=== PATIENT | male | born 1950 | race Caucasian/White ===

== ENCOUNTER 2020-10-27 01:28 | Day surgery (SDC) | payer MEDICARE, SELFPAY ==
[2020-10-18 12:56] VITALS: BMI 24.4
--- NOTE | 2020-10-26 16:31 | PM.HPGS ---
History of Present Illness History of Present Illness Consent: Risks, benefits, and alternatives have been discussed and questions answered. Patient agrees to proceed with procedure. Chief complaint: neoplasm screening Narrative: Lew Ovalles is a 70 year old male referred for colon cancer screening. He has had polyps removed test. About 20 years ago he had a partial colon resection in order to remove a large polyp. Review of Systems Review of Systems: All systems reviewed & are unremarkable except as noted in HPI and below PMFSH Past Medical History Medical History History of CVA (cerebrovascular accident) HTN (hypertension) Hyperlipidemia PVD (peripheral vascular disease) Smoker Surgical History Surgical History H/O carotid endarterectomy Social History Social History Smoking status: Current some day smoker Tobacco type: cigarettes and e-cigarettes/vaping Alcohol intake: current Drinks per week: 21 Living arrangements: with family Spiritual care concerns: No Meds Home Medications and Allergies Home Medications Medication Instructions Recorded Confirmed Type amlodipine 5 mg PO DAILY 10/18/20 10/27/20 History aspirin [Adult Low Dose Aspirin] 81 mg PO DAILY 10/18/20 10/27/20 History atorvastatin 40 mg PO DAILY 10/18/20 10/27/20 History clopidogrel 75 mg PO DAILY 10/18/20 10/27/20 History gemfibrozil 600 mg PO DAILY 10/18/20 10/27/20 History levetiracetam 500 mg PO DAILY 10/18/20 10/27/20 History lisinopril-hydrochlorothiazide 1 tablet PO DAILY 10/18/20 10/27/20 History Allergies Allergy/AdvReac Type Severity Reaction Status Date / Time No Known Allergies Allergy Verified 10/27/20 06:45 Exam Resp: Auscultation: clear to auscultation bilaterally Cardio: Rate: regular rate Rhythm: regular rhythm GI: GI Palp: Yes Soft to palpation and No Tenderness to palpation present (GI) Assessment and Plan Assessment and plan (1) Colon cancer screening: Code(s): Z12.11 - Encounter for screening for malignant neoplasm of colon Status: Acute Assessment and Plan: Colonoscopy with possible biopsy or polypectomy or cautery or injection of substances.
--- NOTE | 2020-10-27 07:05 | WPDANESEPPF ---
Anes - Initial Pre Proc Eval Procedure: Operation Date: 10/27/20 08:00 Proposed Procedures p Screening Colonoscopy - Jose Bobo MD Date/Time: 10/27/20 07:05 Surgeon: Jose Bobo MD Pre Op Diagnosis: neoplasm screening Patient Data Age: 70 Gender: M Height: 1.75 m Weight: 75 kg Allergies Allergy/AdvReac Type Severity Reaction Status Date / Time No Known Allergies Allergy Verified 10/27/20 06:45 Home Medications Medication Instructions Recorded Confirmed Type amlodipine 5 mg PO DAILY 10/18/20 10/27/20 History aspirin [Adult Low Dose Aspirin] 81 mg PO DAILY 10/18/20 10/27/20 History atorvastatin 40 mg PO DAILY 10/18/20 10/27/20 History clopidogrel 75 mg PO DAILY 10/18/20 10/27/20 History gemfibrozil 600 mg PO DAILY 10/18/20 10/27/20 History levetiracetam 500 mg PO DAILY 10/18/20 10/27/20 History lisinopril-hydrochlorothiazide 1 tablet PO DAILY 10/18/20 10/27/20 History Patient hx anesthesia problems: none Family hx anesthesia problems: none PMFSH Past Medical History Medical History History of CVA (cerebrovascular accident) HTN (hypertension) Hyperlipidemia PVD (peripheral vascular disease) Smoker Surgical History Surgical History (Updated 10/27/20 @ 07:06 by Ronnie Cabrera MD) H/O carotid endarterectomy Social History Social History Smoking status: Current some day smoker Tobacco type: cigarettes and e-cigarettes/vaping Alcohol intake: current Drinks per week: 21 Living arrangements: with family Spiritual care concerns: No Anes - Eval Final PreProcedure Day of Procedure 10/27/20 07:05 Patient weight: overweight Heart: regular rate and rhythm Lungs: clear to auscultation Airway: Mallampati scale class II Neurological: alert and oriented Last oral intake: >/= 8 hours ASA classification: IV Emergent: no Anesthetic plan: proceed Anesthesia type and monitoring: general GIVS and standard monitoring Informed Consent: The patient's anesthetic plan and its attendant risks and benefits were discussed with the patient/family/POA. Questions were solicited and answers provided to the satisfaction of the patient/family/POA.
[2020-10-27 07:08] VITALS: BP 152/90; PULSE 80; RESP 16; TEMP 36.6; O2SAT 97; BMI 23.4
[2020-10-27] MEDS: LACTATED RINGERS 1,000 ML 150 ML IV CONT (07:15)
[2020-10-27 08:01] VITALS: BP 132/79; PULSE 73; RESP 26; O2SAT 100
[2020-10-27 08:11] VITALS: BP 130/85; PULSE 70; RESP 24; O2SAT 100
[2020-10-27 08:21] VITALS: BP 173/96; PULSE 70; RESP 22; O2SAT 99
== END 2020-10-27 08:38 | disposition home or self-care (01) ==
PROVIDERS: PCP Internal Medicine; Visit Provider Internal Medicine Gastroenterology
PROC: 0DJD8ZZ Inspection of Lower Intestinal Tract, Via Natural or Artificial Opening Endoscopic (ICD-10-PCS; CPT 45378; principal; 2020-10-27 08:00)
DX: Z12.11 Encounter for screening for malignant neoplasm of colon (principal); Z86.010 Personal history of colon polyps; K64.8 Other hemorrhoids; K57.30 Diverticulosis of large intestine without perforation or abscess without bleeding; Z98.0 Intestinal bypass and anastomosis status; Z79.82 Long term (current) use of aspirin; I10 Essential (primary) hypertension; I73.9 Peripheral vascular disease, unspecified; E78.5 Hyperlipidemia, unspecified; Z86.73 Personal history of transient ischemic attack (TIA), and cerebral infarction without residual deficits; F17.290 Nicotine dependence, other tobacco product, uncomplicated
CPT/HCPCS: G0105; J2704; J7120

== ENCOUNTER 2023-02-28 02:55 | Emergency (ER) | payer MEDICARE, SELFPAY ==
--- NOTE | ~2023-02-28 | XR_ITS ---
EXAMINATION: XR knee LT 3V DATE: 02/28/2023 06:36 INDICATION: Left knee injury and pain. TECHNIQUE: 3 views of left knee were obtained. COMPARISON: None. FINDINGS: Bone alignment is normal. No fracture. There is moderate osteoarthritis of medial compartme nt, mild osteoarthritis of lateral compartment, and severe osteoarthritis of patellofemoral compartme nt. There is a small knee joint effusion. IMPRESSION: 1. Severe left knee osteoarthritis. 2. Small left knee joint effusion. Reviewed, dictated and finalized at location E. KSMITH HELPER
--- NOTE | ~2023-02-28 | XR_ITS ---
EXAMINATION: XR elbow RT min 3V DATE: 02/28/2023 06:36 INDICATION: Right elbow pain. Fall. TECHNIQUE: 4 views of right elbow were obtained. COMPARISON: None. FINDINGS: Bone alignment is normal. No fracture. Joint spaces are normal. No elbow joint effusion. Th ere are enthesophytes at the medial and lateral humeral epicondyles and olecranon. There is soft tiss ue swelling overlying the olecranon. IMPRESSION: 1. No fracture. Reviewed, dictated and finalized at location E. AL MOLD MAKER IMPRESSION: 1. No fracture.
--- NOTE | ~2023-02-28 | CT_ITS ---
EXAMINATION: CT brain wo con DATE: 02/28/2023 04:16 INDICATION: Head injury. Fall. TECHNIQUE: Computed tomography (CT) of the head was performed without intravenous contrast. The mA wa s adjusted according to patient size. Iterative reconstruction technique was employed. The dose-lengt h product was 681.00 mGy-cm. COMPARISON: None. FINDINGS: There are old infarcts involving the left basal ganglia, right parietal and occipital lobes , posterior right frontal lobe, and left occipital lobe. There are scattered areas of low attenuation in the cerebral white matter. There is no intracranial hemorrhage, acute infarction, or abnormal int racranial mass lesion. The ventricles are normal in size. There are likely changes of ocular lens rep lacement surgeries. There is mucosal thickening in the paranasal sinuses. The mastoid air cells are n ormal. IMPRESSION: 1. Old infarcts involving the left basal ganglia, right frontal, parietal, and occipital lobes, and l eft occipital lobe. 2. Moderate nonspecific cerebral white matter disease, which likely represents chronic small vessel i schemic disease. Reviewed, dictated and finalized at location E. TEACHER IMPRESSION: 1. Old infarcts involving the left basal ganglia, right frontal, parietal, and occipital lobes, and left occipital lobe. 2. Moderate nonspecific cerebral white matter disease, which likely represents chronic small vessel ischemic disease.
--- NOTE | ~2023-02-28 | CT_ITS ---
EXAMINATION: CT cervical spine wo con DATE: 02/28/2023 04:16 INDICATION: Head and neck injury. Fall. TECHNIQUE: Computed tomography (CT) of the cervical spine was performed without intravenous contrast. Automated exposure control and iterative reconstruction technique were employed. The dose-length pro duct was 441.14 mGy-cm. COMPARISON: None FINDINGS: There is mild emphysema. There is 10 degrees levoscoliosis of cervicothoracic spine. There is 2 mm anterolisthesis of C5 on C6 and C7 on T1. Vertebral body heights are normal. There is interbo dy fusion at C3-C4. There is moderately decreased disc height at C5-C6 and severely decreased disc he ight at C6-C7. Partially visualized is dental disease including a fractured left mandibular molar wit h periapical lucencies. The following disc levels are specifically discussed: C2-C3: There is mild bilateral uncovertebral joint osteoarthritis. There is mild right and severe lef t facet joint osteoarthritis. There is mild left neural foraminal stenosis. There is no central canal stenosis. C3-C4: There is moderate right and mild left uncovertebral joint injury. There is ankylosis of the fa cet joints with severe hypertrophy. There is moderate right and mild left neural foraminal stenosis. There is no central canal stenosis. C4-C5: There is moderate right and mild left uncovertebral joint osteoarthritis. There is severe bila teral facet joint osteoarthritis. There is moderate right and mild left neural foraminal stenosis. Th ere is mild central canal stenosis. C5-C6: There is severe bilateral uncovertebral joint osteoarthritis. There is severe bilateral facet joint osteoarthritis. There is severe right and mild left neural foraminal stenosis. There is mild ce ntral canal stenosis. C6-C7: There is severe bilateral uncovertebral joint osteoarthritis. There is severe bilateral facet joint osteoarthritis. There is moderate bilateral neural foraminal stenosis. There is moderate centra l canal stenosis. C7-T1: There is mild bilateral uncovertebral joint osteoarthritis. There is severe bilateral facet génesis int osteoarthritis. There is mild bilateral neural foraminal stenosis. There is no central canal sten osis. IMPRESSION: 1. No cervical spine fracture. 2. Severe cervical spondylosis. Reviewed, dictated and finalized at location E. LSTERY HANDLER
[2023-02-28 02:57] VITALS: BP 113/60; PULSE 73; RESP 16; TEMP 36.4; O2SAT 100
[2023-02-28 03:52] VITALS: BP 118/75; PULSE 74; RESP 18; O2SAT 99
--- NOTE | 2023-02-28 06:20 | ED.GENADULT ---
HPI - General Adult General Chief complaint: Fall Stated complaint: fall down 6 steps, head injury Time Seen by Provider: 02/28/23 05:08 History of Present Illness HPI narrative: Patient is 72-year-old gentleman who presents emergency department with chief complaint of fall down stairs. The patient reports he was carrying his dog down the steps and slipped fell backwards striking his head and his right elbow on the stairs. Patient denies loss of consciousness reports he thinks he may be on a blood thinner but is unsure. The patient states that he has a small cut on the back of his head and also reports a skin tear on his right elbow. Related Data Home Medications Medication Instructions Recorded Confirmed amlodipine 5 mg tablet 5 mg PO DAILY 10/18/20 10/27/20 aspirin 81 mg tablet 81 mg PO DAILY 10/18/20 10/27/20 atorvastatin 40 mg tablet 40 mg PO DAILY 10/18/20 10/27/20 clopidogrel 75 mg tablet 75 mg PO DAILY 10/18/20 10/27/20 gemfibrozil 600 mg tablet 600 mg PO DAILY 10/18/20 10/27/20 levetiracetam 500 mg tablet 500 mg PO DAILY 10/18/20 10/27/20 lisinopril 10 1 tablet PO DAILY 10/18/20 10/27/20 mg-hydrochlorothiazide 12.5 mg tablet Allergies Allergy/AdvReac Type Severity Reaction Status Date / Time No Known Allergies Allergy Verified 10/27/20 06:45 Review of Systems Review of Systems: A 10 system review of systems was completed on the patient and is negative except for what is stated in the HPI. Nursing and ancillary documentation was reviewed. [facility] Past Medical History Medical History History of CVA (cerebrovascular accident) HTN (hypertension) Hyperlipidemia PVD (peripheral vascular disease) Smoker Surgical History Surgical History H/O carotid endarterectomy Social History Social History Smoking status: Current some day smoker Tobacco type: cigarettes and e-cigarettes/vaping Alcohol intake: current Drinks per week: 21 Living arrangements: with family Spiritual care concerns: No Exam Narrative: GENERAL: Well-appearing, well-nourished, and in no acute distress. HEAD: Normocephalic, 3 cm laceration in the occipital region of the scalp. EYES: PERRLA and EOMI. ENT: Nares clear, no rhinorrhea or epistaxis. Mucous membranes moist. NECK: Supple. CHEST: Clear to auscultation. No respiratory distress. HEART: Regular rate and rhythm. No murmur heard. Normal peripheral pulses. ABDOMEN: Soft, nontender, nondistended, normal active bowel sounds. EXTREMITIES: Normal range of motion. No edema. There is a skin tear present on the right elbow, there is tenderness to palpation of the left knee SKIN: Warm, dry, no rash. NEURO: No focal deficits. Alert and oriented x3. PSYCH: Normal mood and affect. Course Vital Signs Vital signs: Vital Signs Temperature 36.4 C L 02/28/23 02:57 Pulse Rate 73 02/28/23 02:57 Respiratory Rate 16 02/28/23 02:57 Blood Pressure 113/60 02/28/23 02:57 Pulse Oximetry 100 02/28/23 02:57 Oxygen Delivery Room Air 02/28/23 02:57 Temperature 36.4 C L 02/28/23 02:57 Pulse Rate 80 02/28/23 06:52 Respiratory Rate 20 02/28/23 06:52 Blood Pressure 102/64 02/28/23 06:52 Pulse Oximetry 98 02/28/23 06:52 Oxygen Delivery Room Air 02/28/23 02:57 Procedures Laceration Laceration 1: Date: 02/28/23 Time: 06:21 Site: scalp Side (If applicable): right Size (cm): 3 Description: linear Depth: simple, single layer Local Anesthetic: none Pre-repair: irrigated ====== Skin Level ====== Skin layer closed with: veronica Number of sutures: 5 ====== Subcutaneous Layer ====== ====== Muscle Layer ====== ====== Tendon Layer ====== Medical Decision Making Vital Signs Vital Signs: Vital Signs Tempera
[2023-02-28 06:52] VITALS: BP 102/64; PULSE 80; RESP 20; O2SAT 98
== END 2023-02-28 07:13 | disposition home or self-care (01) ==
PROVIDERS: Emergency Provider Emergency Medicine; PCP Internal Medicine
DX: S01.01XA Laceration without foreign body of scalp, initial encounter (principal); S80.02XA Contusion of left knee, initial encounter; S51.011A Laceration without foreign body of right elbow, initial encounter; I10 Essential (primary) hypertension; E78.5 Hyperlipidemia, unspecified; F17.210 Nicotine dependence, cigarettes, uncomplicated; Z86.73 Personal history of transient ischemic attack (TIA), and cerebral infarction without residual deficits; W10.8XXA Fall (on) (from) other stairs and steps, initial encounter
CPT/HCPCS: 12002; 70450; 72125; 73080; 73562; 99284

== ENCOUNTER 2024-02-29 14:33 | Outpatient (CLI) | payer MEDICARE, SELFPAY ==
--- NOTE | ~2024-02-29 | XR_ITS ---
XR chest 2V Ordering provider: Andre Hickman, History: 73 years Male with . Cough . Comparison: None. FINDINGS: MEDIASTINUM: The cardiac silhouette is not enlarged. LUNGS: No effusions or pneumothorax. Opacity in the left lower lobe medially which is suggestive of a telectasis versus pneumonia. OTHER: No free air under the diaphragm. Multilevel degenerative disc disease. Loss of volume of T12 and T7 suggestive of compression fracture more prominent in T12.. IMPRESSION: Left basilar atelectasis versus pneumonia. Reviewed, dictated and finalized at location A. GER IT TRAINING
== END 2024-02-29 14:34 | disposition home or self-care (01) ==
PROVIDERS: PCP Internal Medicine; Visit Provider Internal Medicine
DX: R05.9 Cough, unspecified (principal)
CPT/HCPCS: 71046

== ENCOUNTER 2024-03-06 17:35 | Emergency (ER) | payer MEDICARE, SELFPAY ==
--- NOTE | ~2024-03-06 | XR_ITS ---
XR chest 1V Ordering provider: Cristina Quijano History: 73 years Male with . weak, cough, dyspnea . Comparison: None. FINDINGS: MEDIASTINUM: The cardiac silhouette is not enlarged. LUNGS: No infiltrates, effusions or pneumothorax. OTHER: No free air under the diaphragm. Degenerative changes of the spine. IMPRESSION: No acute cardiopulmonary pathology. Reviewed, dictated and finalized at location A. SEWER
[2024-03-06 17:43] VITALS: BP 89/47; PULSE 94; RESP 18; TEMP 36.7; O2SAT 100
--- NOTE | 2024-03-06 17:49 | ECG_ITS ---
Test Date: 2024-03-06 18:36:24 Measurements Intervals Hustler Rate: 69 P: 39 MN: 182 QRS: 20 QRSD: 95 T: 60 QT: 373 QTc: 402 Interpretive Statements SINUS RHYTHM NONSPECIFIC ST ELEVATION [0.05+ mV ST ELEVATION] No previous ECG available for comparison Electronically Signed On 03-10-2024 14:48:13 [employer]URAL [employer] E[employer]OR by Chris Carmona M.D.
--- NOTE | 2024-03-06 17:50 | ED.SOB ---
HPI - SOB/Dyspnea General Chief Complaint: Shortness of Breath/Dyspnea Stated Complaint: MULTIPLE C/O Focused HPI: 73-year-old male with history of hypertension, hyperlipidemia CVA presents to the emergency department with at bedside for generalized weakness, cough, shortness of breath for 2 weeks. Patient reports increasingly worsening fatigue generalized weakness. States his cough is nonproductive. He is also reporting diffuse chest pain that occurs with coughing. Denies lower extremity edema. States he was recently started on an antibiotic for a ?cough?. States he has a few doses left. Patient states his blood pressure is normally low 100s. Denies fevers, abdominal pain, nausea vomiting or diarrhea. GENERAL: Well-appearing, well-nourished, and in no acute distress. HEAD: Normocephalic, atraumatic. CHEST: Clear to auscultation. ?No respiratory distress. HEART: Regular rate and rhythm.? NEURO: ?Alert and oriented x3. Patient screened in triage and initial orders placed.? ?Additional care and disposition to be based upon?diagnostic testing and treatment. Related Data Home Medications ?Medication ?Instructions ?Recorded ?Confirmed ?Last Taken ?Type amlodipine 5 mg tablet 5 mg PO DAILY 10/18/20 10/27/20 10/25/20 History aspirin 81 mg tablet 81 mg PO DAILY 10/18/20 10/27/20 10/25/20 History atorvastatin 40 mg tablet 40 mg PO DAILY 10/18/20 10/27/20 10/25/20 History clopidogrel 75 mg tablet 75 mg PO DAILY 10/18/20 10/27/20 10/20/20 History gemfibrozil 600 mg tablet 600 mg PO DAILY 10/18/20 10/27/20 10/25/20 History levetiracetam 500 mg tablet 500 mg PO DAILY 10/18/20 10/27/20 10/25/20 History lisinopril 10 1 tablet PO DAILY 10/18/20 10/27/20 10/25/20 History mg-hydrochlorothiazide 12.5 mg tablet Allergies Allergy/AdvReac Type Severity Reaction Status Date / Time No Known Allergies Allergy Verified 03/06/24 17:35 PMFSH Past Medical History Medical History History of CVA (cerebrovascular accident) HTN (hypertension) Hyperlipidemia PVD (peripheral vascular disease) Smoker Surgical History Surgical History H/O carotid endarterectomy Social History Social History Smoking status: Current some day smoker Tobacco type: cigarettes and e-cigarettes/vaping Alcohol intake: current Drinks per week: 21 Living arrangements: with family Spiritual care concerns: No Course Vital Signs Vital signs: Vital Signs Temperature 98.0 F 03/06/24 17:43 Pulse Rate 94 03/06/24 17:43 Respiratory Rate 18 03/06/24 17:43 Blood Pressure 89/47 L 03/06/24 17:43 Pulse Oximetry 100 03/06/24 17:43 Oxygen Delivery Room Air 03/06/24 17:43 Temperature 98.0 F 03/06/24 17:43 Pulse Rate 72 03/06/24 23:43 Respiratory Rate 16 03/06/24 23:43 Blood Pressure 98/68 L 03/06/24 23:43 Pulse Oximetry 100 03/06/24 23:43 Oxygen Delivery Room Air 03/06/24 17:43 Discharge Plan Discharge Clinical Impression: Cough Qualifiers: Cough type: unspecified Qualified Code(s): R05.9 - Cough, unspecified Patient Disposition: Elopement After Seen by Prov Condition: Stable Patient Language: Sri [place]ankan Prescriptions: No Action atorvastatin 40 mg tablet 40 mg PO DAILY levetiracetam 500 mg tablet 500 mg PO DAILY clopidogrel 75 mg tablet 75 mg PO DAILY amlodipine 5 mg tablet 5 mg PO DAILY gemfibrozil 600 mg Tablet 600 mg PO DAILY aspirin 81 mg Tablet 81 mg PO DAILY lisinopril-hydrochlorothiazide 10-12.5 mg tablet 1 tablet PO DAILY Follow-up/Referrals: Vick,MD Andre [Primary Care Provider] -
[2024-03-06] MEDS: SODIUM CHLORIDE 0.9% IV 1,000 ML 999 ML IV CONT (18:13)
[2024-03-06 19:14] VITALS: BP 115/57
[2024-03-06 23:43] VITALS: BP 98/68; PULSE 72; RESP 16; O2SAT 100
== END 2024-03-06 23:44 | disposition left against medical advice (07) ==
LOC: ANHED 23:52
PROVIDERS: Emergency Provider Physician Assistant; PCP Internal Medicine
DX: R05.9 Cough, unspecified (principal); I10 Essential (primary) hypertension; I73.9 Peripheral vascular disease, unspecified; E78.5 Hyperlipidemia, unspecified; Z86.73 Personal history of transient ischemic attack (TIA), and cerebral infarction without residual deficits; F17.210 Nicotine dependence, cigarettes, uncomplicated; F17.290 Nicotine dependence, other tobacco product, uncomplicated
CPT/HCPCS: 71045; 93005; 96360; 99284; J7030

== ENCOUNTER 2024-03-12 16:36 | Outpatient (CLI) | payer MEDICARE, SELFPAY ==
[2024-03-12 17:20] LABS: Basophils Absolute Auto 0.1 K/mm3 (0.0-0.1); Basophils Percent Auto 2.1 % (0.2-1.2); Eosinophils Absolute Auto 0.2 K/mm3 (0-0.3); Eosinophils Percent Auto 4.6 % (0-4.4); Hematocrit 40.9 % (42.0-52.0); Hemoglobin 13.2 g/dL (14.0-18.0); Immature Granulocyte Absolute 0.01 K/mm3 (0.00-0.031); Immature Granulocyte Percent A 0.2 % (0-0.5); Lymphocytes Absolute Auto 0.74 K/mm3 (0.9-3.2); Lymphocytes Percent Auto 17.1 % (18.3-44.2); Mean Corpuscular HGB Conc 32.3 g/dl (32-36); Mean Platelet Volume 11.2 fl (7.4-10.4); Monocytes Absolute Auto 0.7 K/mm3 (0.1-0.6); Monocytes Percent Auto 17.1 % (2.6-8.5); Neutrophils Absolute Auto 2.6 K/mm3 (1.3-6.7); Neutrophils Percent Auto 58.9 % (45.5-73.1); Platelet Count Result 204 k/mm3 (150-375); Red Cell Distribution Width 14.4 % (11.5-14.5); White Blood Count 4.3 K/mm3 (4.5-10.0)
[2024-03-12 17:36] LABS: Alanine Aminotransferase 16 U/L (6-50); Albumin Level 3.9 g/dL (3.5-5.1); Alkaline Phosphatase 97 U/L (38-126); Anion Gap 14 mmol/L (4-12); Aspartate Amino Transferase 19 U/L (17-59); Bilirubin,Total 0.4 mg/dL (0.2-1.3); Calcium 9.7 mg/dL (8.4-10.2); Carbon Dioxide 13 mmol/L (22-30); Chloride 112 mmol/L (98-107); Estimated Glomerular Filt Rate 30; Glucose 103 mg/dL (65-110); Lipase 448 U/L (23-300); Sodium 139 mmol/L (137-145)
[2024-03-12 17:56] LABS: Add Urine Microscopic? YES; Appearance Urine Turbid (Clear); Bacteria Urine None Seen /hpf; Bilirubin Urine Negative (Negative); Blood Urine Negative (Negative); Color Urine Yellow (Yellow); Glucose Urine UA Negative (Negative); Ketones Urine Negative (Negative); Leukocyte Esterase Ur Negative LEU/UL (Negative); Need Manual Microscopic Reviewed; Nitrate Urine Negative (Negative); Non Pathogenic Casts >20; Protein Urine 2+ mg/dL (Negative); Specific Grav Ur 1.018 (1.001-1.035); Squamous Epithelial Cell Urine None Seen /hpf (Few); Urobilinogen Urine 0.2 mg/dL (<2.0)
[2024-03-12 18:01] LABS: Blood Urea Nitrogen 151 mg/dL (9-20)
== END 2024-03-12 16:37 | disposition home or self-care (01) ==
LOC: ANHLAB 16:41
PROVIDERS: PCP Internal Medicine; Visit Provider Internal Medicine
DX: M54.50 Low back pain, unspecified (principal); R63.4 Abnormal weight loss; Z79.899 Other long term (current) drug therapy
CPT/HCPCS: 36415; 80053; 81001; 83690; 85025; 87086

== ENCOUNTER 2024-05-08 10:43 | Outpatient (CLI) | payer MEDICARE, SELFPAY ==
--- NOTE | ~2024-05-08 | XR_ITS ---
CHEST RADIOGRAPH, PA AND LATERAL CLINICAL HISTORY: Dyspnea, anemia, fatigue . COMPARISON: 03/13/2024 TECHNIQUE: PA and lateral views of the chest. FINDINGS The cardiomediastinal silhouette is partially obscured. Increased interstitial markings are identified bilaterally, findings suggesting mild pulmonary vascul ar congestion. Interval development of bilateral pleural effusions, when compared with previous study, right greater than left. The remainder of the lungs are clear. IMPRESSION: Large right and small left-sided pleural effusion with mild pulmonary vascular congestion. The remainder of the lungs are clear. Reviewed, dictated and finalized at location A. MACY OPERATIONS COORDINATOR
[2024-05-08 11:46] LABS: Basophils Absolute Auto 0.1 K/mm3 (0.0-0.1); Basophils Percent Auto 0.8 % (0.2-1.2); Eosinophils Absolute Auto 0.2 K/mm3 (0-0.3); Eosinophils Percent Auto 2.3 % (0-4.4); Hemoglobin 11.8 g/dL (14.0-18.0); Immature Granulocyte Absolute 0.03 K/mm3 (0.00-0.031); Immature Granulocyte Percent A 0.3 % (0-0.5); Lymphocytes Absolute Auto 1.03 K/mm3 (0.9-3.2); Lymphocytes Percent Auto 11.1 % (18.3-44.2); Mean Corpuscular HGB Conc 30.3 g/dl (32-36); Mean Corpuscular Hemoglobin 29.5 pg (26-34); Mean Corpuscular Volume 97.5 fl (80-100); Mean Platelet Volume 10.9 fl (7.4-10.4); Monocytes Absolute Auto 0.6 K/mm3 (0.1-0.6); Monocytes Percent Auto 6.5 % (2.6-8.5); Neutrophils Absolute Auto 7.4 K/mm3 (1.3-6.7); Platelet Count Result 335 k/mm3 (150-375); Red Cell Distribution Width 15.8 % (11.5-14.5); White Blood Count 9.3 K/mm3 (4.5-10.0)
[2024-05-08 11:58] LABS: Alanine Aminotransferase 25 U/L (6-50); Albumin Level 3.6 g/dL (3.5-5.1); Alkaline Phosphatase 108 U/L (38-126); Anion Gap 9 mmol/L (4-12); Aspartate Amino Transferase 22 U/L (17-59); Bilirubin,Total 0.7 mg/dL (0.2-1.3); Blood Urea Nitrogen 18 mg/dL (9-20); Calcium 9.2 mg/dL (8.4-10.2); Carbon Dioxide 22 mmol/L (22-30); Chloride 114 mmol/L (98-107); Estimated Glomerular Filt Rate > 60; Glucose 97 mg/dL (65-110); Potassium 3.5 mmol/L (3.4-5.0); Sodium 145 mmol/L (137-145)
[2024-05-08 12:03] LABS: Iron 27 ug/dL (49-181)
[2024-05-08 12:06] LABS: NT Pro B Type Natriuretic Pept 3270 pg/mL (19.9-100)
[2024-05-08 12:13] LABS: Percent Iron Saturation 9 % (20-50)
--- OUTSIDE RECORDS SUMMARY | 2024-05-08 12:31 | XMS_ITS | Data Portability ---
Author Organization [facility] Address [address] [place] [address] Care Team Providers Care Plant Clerk Name Role Phone LYLE HICKMAN Primary Care Provider Unavailabl e Assessment Encounter Date Assessment Date Assessment LastModified by Organization Details LastModified Time 01/22/2024 01/22/2024 his blood pressu re is controlled. He had a colonoscopy about 2 years ago in [facility] he thinks are trying to get that report he will try to get the run down on his immunizations. Continue current therapy diagnosis and assessment and plan have been discussed. Healthy lifestyle care instructions. Blood work. See me in 4 months. [email or web address] Not available 01/26/2024 20:50:07 03/12/2024 03/12/2024 he does not look toxic he is able to stand up and walk in the office without having symptoms of orthostasis I will obtain stat blood work I would like to get a CT of chest abdomen and pelvis because of the cough as well as the weight loss. We will try to get him to push fluids I told him not a bad idea if he will go to the ER now to get blood work done quickly so we can see where he is at I believe he is significantly dehydrated with the tenting of the skin in the diarrhea. He does not want to do that. His is in attendance with him today we will get some stat blood work and take it from there Not available 03/16/2024 17:25:10 03/19/2024 03/19/2024 I will see him i n about 3 weeks. He can return to work this coming Sunday. We will hold the lisinopril hydrochlorothiazide for now his other medications from home we will continue. Continue with the boost drinks on a daily basis to increase his protein intake Not available 03/19/2024 22:10:46 04/09/2024 04/09/2024 we will continue current therapy he will start his iron he did have a fecal immunochemical testing was negative I will see him back in 3 months [email or web address] Not available 04/13/2024 18:25:24 Plan of Treatment Reminders Order Date Submit Date Provider Last Modified By Organization Details Last Modified Time Details Appointments ANY 15 2024 09:15A Rufino Hickman MD Not available Not available Not available ANY 15 2024 11:00A Rufino Hickman MD Not available Not available Not available Lab CBC w/ auto diff 2024 025 SUKHDEEP [place], [address], [address], [place], [address], 03/20/2024 13:14:18 CMP, serum or plasma 2024 025 [email or web address] [place], [address]22 Jes[address], [address], [place], [address], 03/20/2024 13:14:16 urinalys is, dipstick , reflex micro - UA with micro 2024 025 [email or web address] [place], 2022 Jes[address], [address], [place], [address], 03/13/2024 10:59:14 lipase, serum or plasma 2024 025 [email or web address] [place], [address]22 Jesika [address], [address], [place], [address], 03/13/2024 09:46:48 CBC w/ auto diff 2024 025 SUKHDEEP [place], [address]22 [address], [address], [place], [address], 03/13/2024 03:58:30 CMP, serum or plasma 2024 025 [email or web address] [place], [address]22 [address], [address], [place], [address], 03/13/2024 09:46:48 lipid panel, serum 2023 024 [facility], [address] Jesika Diaz, [address], [place], [address], 01/23/2024 08:27:07 CMP, serum or plasma 2023 024 [facility], [address] Jesika [address], [address], [place], [address], 01/23/2024 08:27:09 CBC w/ auto diff 2023 024 [facility], [address], [address], [place], [address], 01/23/2024 08:27:10 vitamin D, 25-hydro xy, total, serum 2023 024 [facility], [address], [address], [place], [address], 01/23/2024 08:27:11 Referral None recorded . Procedures None recorded . Surgeries None recorded . Imaging None recorded . Medication Orders None recorded . Patient TargetsNo targets recorded. Patient Instructions Encounter Date Encounter Id Patient Instructions Last Modified By Organization Details Last Modified Time 01/22/2024 [id number] A healthy lifestyle: care instructions [email or web address] Not available 01/22/2024 12:59:23 Reason for Referral Solution Consultant Referral for Co ngestive heart failure Referring Physician: Lyle Hickman, Internal Medicine, Encounter Date: 05/08/2024 Results Created Date Observation Date Name Description Value Unit Range Abnormal Flag Note LastModifiedBy Organization Detail LastModifiedTime 01/22/2001/23/2024 LIPID PANEL cholesterol, total 161 mg/dL 100-19 9 Not Available [facility] ([facility]) [address] [facility], [place], [address], 01/23/2024 08:27:07 01/22/20 24 01/23/2024 LIPID PANEL triglyceride s 107 mg/dL 0-149 Not Available [facility] ([facility]) [address] [place], [address], 01/23/2024 08:27:07 01/22/20 24 01/23/2024 LIPID PANEL HDL cholesterol 63 mg/dL >39 Not Available [facility] ([facility]) [address] [place], [address], 01/23/2024 08:27:07 01/22/20 24 01/23/2024 LIPID PANEL VLDL cholesterol linden 19 mg/dL 5-40 Not Available [facility] ([facility]) [address] [place], [address], 01/23/2024 08:27:07 01/22/20 24 01/23/2024 LIPID PANEL LDL chol calc ([facility]) 79 mg/dL 0-99 Not Available [facility] ([facility]) [address] [place], [address], 01/23/2024 08:27:07 01/22/20 24 01/23/2024 COMP. METAB OLIC PANEL (14) glucose 94 mg/dL 70-99 Not Available [facility] ([facility]) [address] [place], [address], 01/23/2024 08:27:08 01/22/20 24 01/23/2024 COMP. METAB OLIC PANEL (14) BUN 28 mg/dL 8-27 above high normal Not Available [facility] ([facility]) [address] [place], [address], 01/23/2024 08:27:08 01/22/20 24 01/23/2024 COMP. METAB OLIC PANEL (14) creatinine 1.19 mg/dL 0.76-1 .27 Not Available [facility] ([facility]) [address] [place], [address], 01/23/2024 08:27:08 11/19/20 24 01/23/2024 COMP. METAB OLIC PANEL (14) eGFR 65 mL/mi n/1.7 3 >59 Not Available [facility] ([facility]) [address] [facility], [place], [address], 01/23/2024 08:27:08 01/22/20 24 01/23/2024 COMP. METAB OLIC PANEL (14) BUN/creatini ne ratio 24 10-24 Not Available [facility] ([facility]) [address] [facility], [place], [address], 01/23/2024 08:27:08 01/22/20 24 01/23/2024 COMP. METAB OLIC PANEL (14) sodium 141 mmol/ L 134-14 4 Not Available [facility] ([facility]) [address] [facility], [place], [address], 01/23/2024 08:27:08 01/22/20 24 01/23/2024 COMP. METAB OLIC PANEL (14) potassium 4.6 mmol/ L 3.5-5. 2 Not Available [facility] ([facility]) [address] [facility], [place], [address], 01/23/2024 08:27:08 01/22/20 24 01/23/2024 COMP. METAB OLIC PANEL (14) chloride 106 mmol/ L 96-106 Not Available [facility] ([facility]) [address] [facility], [place], [address], 01/23/2024 08:27:08 01/22/20 24 01/23/2024 COMP. METAB OLIC PANEL (14) carbon dioxide, total 20 mmol/ L 20-29 Not Available [facility] ([facility]) [address] [place], [address], 01/23/2024 08:27:08 01/22/20 24 01/23/2024 COMP. METAB OLIC PANEL (14) calcium 9.6 mg/dL 8.6-10 .2 Not Available [facility] ([facility]) [address] [facility], [place], [address], 01/23/2024 08:27:08 01/22/20 24 01/23/2024 COMP. METAB OLIC PANEL (14) protein, total 6.6 g/dL 6.0-8. 5 Not Available [facility] ([facility]) [address] [facility], [place], [address], 01/23/2024 08:27:08 01/22/20 24 01/23/2024 COMP. METAB OLIC PANEL (14) albumin 4.5 g/dL 3.8-4. 8 Not Available [facility] ([facility]) [address] [facility], [place], [address], 01/23/2024 08:27:08 01/22/20 24 01/23/2024 COMP. METAB OLIC PANEL (14) globulin, total 2.1 g/dL 1.5-4. 5 Not Available [facility] ([facility]) [address] [facility], [place], [address], 01/23/2024 08:27:08 01/22/20 24 01/23/2024 COMP. METAB OLIC PANEL (14) bilirubin, total <0.2 mg/dL 0.0-1. 2 Not Available [facility] ([facility]) [address] [facility], [place], [address], 01/23/2024 08:27:08 01/22/20 24 01/23/2024 COMP. METAB OLIC PANEL (14) alkaline phosphatase 98 IU/L 44-121 Not Available [facility] ([facility]) [address] [facility], [place], [address], 01/23/2024 08:27:08 01/22/20 24 01/23/2024 COMP. METAB OLIC PANEL (14) AST (SGOT) 18 IU/L 0-40 Not Available [facility] ([facility]) [address] [facility], [place], [address], 01/23/2024 08:27:08 01/22/20 24 01/23/2024 COMP. METAB OLIC PANEL (14) ALT (SGPT) 12 IU/L 0-44 Not Available [facility] ([facility]) [address] [facility], [place], [address], 01/23/2024 08:27:08 01/22/20 24 01/23/2024 CBC WITH DIFFE RENTI AL/PL ATELE T WBC 8.2 x10e3 /uL 3.4-10 .8 Eff ectiv e Decem young 2023 profi elizabeth [id number] WBC will be made* * non-o rdera ble as a stand -yomi e order code. Not Available [facility] ([facility]) [address] [facility], [place], [address], 01/23/2024 08:27:10 01/22/20 24 01/23/2024 CBC WITH DIFFE RENTI AL/PL ATELE T RBC 4.52 x10e6 /uL 4.14-5 .80 Not Available [facility] ([facility]) [address] [facility], [place], [address], 01/23/2024 08:27:10 01/22/20 24 01/23/2024 CBC WITH DIFFE RENTI AL/PL ATELE T hemoglobin 13.8 g/dL 13.0-1 7.7 Not Available [facility] ([facility]) [address] [facility], [place], [address], 01/23/2024 08:27:10 01/22/20 24 01/23/2024 CBC WITH DIFFE RENTI AL/PL ATELE T hematocrit 42.5 % 37.5-5 1.0 Not Available [facility] ([facility]) [address] [facility], [place], [address], 01/23/2024 08:27:10 01/22/20 24 01/23/2024 CBC WITH DIFFE RENTI AL/PL ATELE T MCV 94 fL 79-97 Not Available [facility] ([facility]) [address] [facility], [place], [address], 01/23/2024 08:27:10 01/22/20 24 01/23/2024 CBC WITH DIFFE RENTI AL/PL ATELE T MCH 30.5 pg 26.6-3 3.0 Not Available [facility] ([facility]) [address] [facility], [place], [address], 01/23/2024 08:27:10 01/22/20 24 01/23/2024 CBC WITH DIFFE RENTI AL/PL ATELE T MCHC 32.5 g/dL 31.5-3 5.7 Not Available [facility] ([facility]) [address] [facility], [place], [address], 01/23/2024 08:27:10 01/22/20 24 01/23/2024 CBC WITH DIFFE RENTI AL/PL ATELE T RDW 12.4 % 11.6-1 5.4 Not Available [facility] ([facility]) [address] [facility], [place], [address], 01/23/2024 08:27:10 01/22/20 24 01/23/2024 CBC WITH DIFFE RENTI AL/PL ATELE T platelets 329 x10e3 /uL 150-45 0 Not Available [facility] ([facility]) [address] [facility], [place], [address], 01/23/2024 08:27:10 01/22/20 24 01/23/2024 CBC WITH DIFFE RENTI AL/PL ATELE T neutrophils 62 % notest ab. Not Available [facility] ([facility]) [address] [facility], [place], [address], 01/23/2024 08:27:10 01/22/20 24 01/23/2024 CBC WITH DIFFE RENTI AL/PL ATELE T lymphs 19 % notest ab. Not Available [facility] ([facility]) [address] [facility], [place], [address], 01/23/2024 08:27:10 01/22/20 24 01/23/2024 CBC WITH DIFFE RENTI AL/PL ATELE T monocytes 10 % notest ab. Not Available [facility] ([facility]) [address] [facility], [place], [address], 01/23/2024 08:27:10 01/22/20 24 01/23/2024 CBC WITH DIFFE RENTI AL/PL ATELE T eos 8 % notest ab. Not Available [facility] ([facility]) [address] [facility], [place], [address], 01/23/2024 08:27:10 01/22/20 24 01/23/2024 CBC WITH DIFFE RENTI AL/PL ATELE T basos 1 % notest ab. Not Available [facility] ([facility]) [address] [facility], [place], [address], 01/23/2024 08:27:10 01/22/20 24 01/23/2024 CBC WITH DIFFE RENTI AL/PL ATELE T neutrophils (absolute) 5.1 x10e3 /uL 1.4-7. 0 Not Available [facility] ([facility]) [address] [place], [address], 01/23/2024 08:27:10 01/22/20 24 01/23/2024 CBC WITH DIFFE RENTI AL/PL ATELE T lymphs (absolute) 1.6 x10e3 /uL 0.7-3. 1 Not Available [facility] ([facility]) [address] [facility], [place], [address], 01/23/2024 08:27:10 01/22/20 24 01/23/2024 CBC WITH DIFFE RENTI AL/PL ATELE T monocytes(ab solute) 0.8 x10e3 /uL 0.1-0. 9 Not Available [facility] ([facility]) [address] [facility], [place], [address], 01/23/2024 08:27:10 01/22/20 24 01/23/2024 CBC WITH DIFFE RENTI AL/PL ATELE T eos (absolute) 0.6 x10e3 /uL 0.0-0. 4 above high normal Not Available [facility] ([facility]) [address] [facility], [place], [address], 01/23/2024 08:27:10 01/22/20 24 01/23/2024 CBC WITH DIFFE RENTI AL/PL ATELE T baso (absolute) 0.1 x10e3 /uL 0.0-0. 2 Not Available [facility] ([facility]) [address] [facility], [place], [address], 01/23/2024 08:27:10 01/22/20 24 01/23/2024 CBC WITH DIFFE RENTI AL/PL ATELE T immature granulocytes 0 % notest ab. Not Available [facility] ([facility]) [address] [facility], [place], [address], 01/23/2024 08:27:10 01/22/20 24 01/23/2024 CBC WITH DIFFE RENTI AL/PL ATELE T immature grans (abs) 0.0 x10e3 /uL 0.0-0. 1 Not Available [facility] ([facility]) [address] [facility], [place], [address], 01/23/2024 08:27:10 01/22/20 24 01/23/2024 VITAM IN D, 25-HY DROXY vitamin D, 25-hydroxy 39.2 NG/mL 30.0-1 00.0 Vitam in D defic iency has been defin ed by the Insti tute of Medic ine and an Endoc rine Socie ty pract ice guide line as a level of serum 25-OH vitam in D less than 20 ng/mL (1,2) . The Endoc rine Socie ty went on to furth er defin e vitam in D insuf ficie ncy as a level betwe en 21 and 29 ng/mL (2). 1. IOM (Inst itute of Medic ine). 2010. Dieta ry refer ence intak es for calci um and D. Adelia ba [place]: [facility] . 2. Thor robles MF, Eh xavier [place], Becki off-F errar i GUTIERREZ, et al. Evalu ation , treat ment, and preve ntion of vitam in D defic iency : an Endoc rine Socie ty clini linden pract ice guide line. JCEM. 2010; 96(7) :1911 -30. Not Available [facility] ([facility]) [address] [place], [address], 01/23/2024 08:27:11 03/19/19 25 03/20/2024 COMP. METAB OLIC PANEL (14) glucose - mg/dL Test not perfo rmed. Serum was in conta ct with cells when recei soraida which will make the resul t inacc urate . Not Available [facility] ([facility]) [address] [place], [address], 03/20/2024 13:14:16 03/19/19 25 03/20/2024 COMP. METAB OLIC PANEL (14) BUN 13 mg/dL 8-27 Not Available [facility] ([facility]) [address] [place], [address], 03/20/2024 13:14:16 03/19/19 25 03/20/2024 COMP. METAB OLIC PANEL (14) creatinine 0.93 mg/dL 0.76-1 .27 Not Available [facility] ([facility]) [address] [place], [address], 03/20/2024 13:14:16 03/19/19 25 03/20/2024 COMP. METAB OLIC PANEL (14) eGFR 88 mL/mi n/1.7 3 >59 Not Available [facility] ([facility]) [address] [place], [address], 03/20/2024 13:14:16 03/19/19 25 03/20/2024 COMP. METAB OLIC PANEL (14) BUN/creatini ne ratio 14 10-24 Not Available [facility] ([facility]) [address] [place], [address], 03/20/2024 13:14:16 03/19/19 25 03/20/2024 COMP. METAB OLIC PANEL (14) sodium 136 mmol/ L 134-14 4 Not Available [facility] ([facility]) [address] [place], [address], 03/20/2024 13:14:16 03/19/19 25 03/20/2024 COMP. METAB OLIC PANEL (14) potassium - mmol/ L Test not perfo rmed. Serum was in conta ct with cells when recei soraida which will make the resul t inacc urate . Not Available [facility] ([facility]) [address] [place], [address], 03/20/2024 13:14:16 03/19/19 25 03/20/2024 COMP. METAB OLIC PANEL (14) chloride 109 mmol/ L 96-106 above high normal Not Available [facility] ([facility]) [address] [place], [address], 03/20/2024 13:14:16 03/19/19 25 03/20/2024 COMP. METAB OLIC PANEL (14) carbon dioxide, total 15 mmol/ L 20-29 below low normal Not Available [facility] ([facility]) [address] [place], [address], 03/20/2024 13:14:16 03/19/19 25 03/20/2024 COMP. METAB OLIC PANEL (14) calcium 8.4 mg/dL 8.6-10 .2 below low normal Not Available [facility] ([facility]) [address] [place], [address], 03/20/2024 13:14:16 03/19/19 25 03/20/2024 COMP. METAB OLIC PANEL (14) protein, total 5.6 g/dL 6.0-8. 5 below low normal Not Available [facility] ([facility]) [address] [place], [address], 03/20/2024 13:14:16 03/19/19 25 03/20/2024 COMP. METAB OLIC PANEL (14) albumin 3.6 g/dL 3.8-4. 8 below low normal Not Available [facility] ([facility]) [address] [place], [address], 03/20/2024 13:14:16 03/19/19 25 03/20/2024 COMP. METAB OLIC PANEL (14) globulin, total 2.0 g/dL 1.5-4. 5 Not Available [facility] ([facility]) [address] [place], [address], 03/20/2024 13:14:16 03/19/19 25 03/20/2024 COMP. METAB OLIC PANEL (14) bilirubin, total <0.2 mg/dL 0.0-1. 2 Not Available [facility] ([facility]) [address] [place], [address], 03/20/2024 13:14:16 03/19/19 25 03/20/2024 COMP. METAB OLIC PANEL (14) alkaline phosphatase 99 IU/L 44-121 Not Available [facility] ([facility]) [address] [place], [address], 03/20/2024 13:14:16 03/19/19 25 03/20/2024 COMP. METAB OLIC PANEL (14) AST (SGOT) 21 IU/L 0-40 Not Available [facility] ([facility]) [address] [place], [address], 03/20/2024 13:14:16 03/19/19 25 03/20/2024 COMP. METAB OLIC PANEL (14) ALT (SGPT) 16 IU/L 0-44 Not Available [facility] ([facility]) [address] [place], [address], 03/20/2024 13:14:16 03/19/19 25 03/20/2024 CBC WITH DIFFE RENTI AL/PL ATELE T WBC 5.5 x10e3 /uL 3.4-10 .8 Not Available [facility] ([facility]) [address] [facility], [place], [address], 03/20/2024 13:14:17 03/19/19 25 03/20/2024 CBC WITH DIFFE RENTI AL/PL ATELE T RBC 3.67 x10e6 /uL 4.14-5 .80 below low normal Not Available [facility] ([facility]) [address] [place], [address], 03/20/2024 13:14:17 03/19/19 25 03/20/2024 CBC WITH DIFFE RENTI AL/PL ATELE T hemoglobin 10.9 g/dL 13.0-1 7.7 below low normal Not Available [facility] ([facility]) [address] [place], [address], 03/20/2024 13:14:17 03/19/19 25 03/20/2024 CBC WITH DIFFE RENTI AL/PL ATELE T hematocrit 32.8 % 37.5-5 1.0 below low normal Not Available [facility] ([facility]) [address] [place], [address], 03/20/2024 13:14:17 03/19/19 03/20/2024 CBC WITH DIFFE RENTI AL/PL ATELE T MCV 89 fL 79-97 Not Available [facility] ([facility]) [address] [place], [address], 03/20/2024 13:14:17 03/19/19 25 03/20/2024 CBC WITH DIFFE RENTI AL/PL ATELE T MCH 29.7 pg 26.6-3 3.0 Not Available [facility] ([facility]) [address] [facility], [place], [address], 03/20/2024 13:14:17 03/19/1903/20/2024 CBC WITH DIFFE RENTI AL/PL ATELE T MCHC 33.2 g/dL 31.5-3 5.7 Not Available [facility] ([facility]) [address] [place], [address], 03/20/2024 13:14:17 03/19/1903/20/2024 CBC WITH DIFFE RENTI AL/PL ATELE T RDW 13.3 % 11.6-1 5.4 Not Available [facility] ([facility]) [address] [place], [address], 03/20/2024 13:14:17 03/19/19 25 03/20/2024 CBC WITH DIFFE RENTI AL/PL ATELE T platelets 273 x10e3 /uL 150-45 0 Not Available [facility] ([facility]) [address] [place], [address], 03/20/2024 13:14:17 03/19/1903/20/2024 CBC WITH DIFFE RENTI AL/PL ATELE T neutrophils 54 % notest ab. Not Available [facility] ([facility]) [address] [place], [address], 03/20/2024 13:14:17 03/19/19 25 03/20/2024 CBC WITH DIFFE RENTI AL/PL ATELE T lymphs 23 % notest ab. Not Available [facility] ([facility]) [address] [facility], [place], [address], 03/20/2024 13:14:17 03/19/19 25 03/20/2024 CBC WITH DIFFE RENTI AL/PL ATELE T monocytes 11 % notest ab. Not Available [facility] ([facility]) [address] [facility], [place], [address], 03/20/2024 13:14:17 03/19/19 25 03/20/2024 CBC WITH DIFFE RENTI AL/PL ATELE T eos 11 % notest ab. Not Available [facility] ([facility]) [address] [facility], [place], [address], 03/20/2024 13:14:17 03/19/19 25 03/20/2024 CBC WITH DIFFE RENTI AL/PL ATELE T basos 1 % notest ab. Not Available [facility] ([facility]) [address] [facility], [place], [address], 03/20/2024 13:14:17 03/19/1903/20/2024 CBC WITH DIFFE RENTI AL/PL ATELE T neutrophils (absolute) 3.0 x10e3 /uL 1.4-7. 0 Not Available [facility] ([facility]) [address] [place], [address], 03/20/2024 13:14:17 03/19/1903/20/2024 CBC WITH DIFFE RENTI AL/PL ATELE T lymphs (absolute) 1.3 x10e3 /uL 0.7-3. 1 Not Available [facility] ([facility]) [address] [place], [address], 03/20/2024 13:14:17 03/19/19 25 03/20/2024 CBC WITH DIFFE RENTI AL/PL ATELE T monocytes(ab solute) 0.6 x10e3 /uL 0.1-0. 9 Not Available [facility] ([facility]) [address] [facility], [place], [address], 03/20/2024 13:14:17 03/19/19 25 03/20/2024 CBC WITH DIFFE RENTI AL/PL ATELE T eos (absolute) 0.6 x10e3 /uL 0.0-0. 4 above high normal Not Available [facility] ([facility]) [address] [facility], [place], [address], 03/20/2024 13:14:17 03/19/19 25 03/20/2024 CBC WITH DIFFE RENTI AL/PL ATELE T baso (absolute) 0.0 x10e3 /uL 0.0-0. 2 Not Available [facility] ([facility]) [address] [facility], [place], [address], 03/20/2024 13:14:17 03/19/19 25 03/20/2024 CBC WITH DIFFE RENTI AL/PL ATELE T immature granulocytes 0 % notest ab. Not Available [facility] ([facility]) [address] [facility], [place], [address], 03/20/2024 13:14:17 03/19/19 25 03/20/2024 CBC WITH DIFFE RENTI AL/PL ATELE T immature grans (abs) 0.0 x10e3 /uL 0.0-0. 1 Not Available [facility] ([facility]) [address] [facility], [place], [address], 03/20/2024 13:14:17 04/04/19 25 04/05/2024 COMP. METAB OLIC PANEL (14) glucose 71 mg/dL 70-99 Not Available [facility] ([facility]) [address] [facility], [place], [address], 04/05/2024 06:19:18 04/04/19 25 04/05/2024 COMP. METAB OLIC PANEL (14) BUN 15 mg/dL 8-27 Not Available [facility] ([facility]) [address] [place], [address], 04/05/2024 06:19:18 04/04/19 25 04/05/2024 COMP. METAB OLIC PANEL (14) creatinine 1.08 mg/dL 0.76-1 .27 Not Available [facility] ([facility]) [address] [place], [address], 04/05/2024 06:19:18 04/04/19 25 04/05/2024 COMP. METAB OLIC PANEL (14) eGFR 73 mL/mi n/1.7 3 >59 Not Available [facility] ([facility]) [address] [place], [address], 04/05/2024 06:19:18 04/04/19 25 04/05/2024 COMP. METAB OLIC PANEL (14) BUN/creatini ne ratio 14 10-24 Not Available [facility] ([facility]) [address] [place], [address], 04/05/2024 06:19:18 04/04/19 25 04/05/2024 COMP. METAB OLIC PANEL (14) sodium 141 mmol/ L 134-14 4 Not Available [facility] ([facility]) [address] [place], [address], 04/05/2024 06:19:18 04/04/19 25 04/05/2024 COMP. METAB OLIC PANEL (14) potassium 4.5 mmol/ L 3.5-5. 2 Not Available [facility] ([facility]) [address] [place], [address], 04/05/2024 06:19:18 04/04/19 25 04/05/2024 COMP. METAB OLIC PANEL (14) chloride 105 mmol/ L 96-106 Not Available [facility] ([facility]) [address] [place], [address], 04/05/2024 06:19:18 04/04/19 25 04/05/2024 COMP. METAB OLIC PANEL (14) carbon dioxide, total 21 mmol/ L Not Available [facility] ([facility]) [address] [place], [address], 04/05/2024 06:19:18 04/04/19 25 04/05/2024 COMP. METAB OLIC PANEL (14) calcium 9.3 mg/dL 8.6-10 .2 Not Available [facility] ([facility]) [address] [place], [address], 04/05/2024 06:19:18 04/04/19 25 04/05/2024 COMP. METAB OLIC PANEL (14) protein, total 6.0 g/dL 6.0-8. 5 Not Available [facility] ([facility]) [address] [place], [address], 04/05/2024 06:19:18 04/04/19 25 04/05/2024 COMP. METAB OLIC PANEL (14) albumin 3.7 g/dL 3.8-4. 8 below low normal Not Available [facility] ([facility]) [address] [place], [address], 04/05/2024 06:19:18 04/04/19 25 04/05/2024 COMP. METAB OLIC PANEL (14) globulin, total 2.3 g/dL 1.5-4. 5 Not Available [facility] ([facility]) [address] [place], [address], 04/05/2024 06:19:18 04/04/19 25 04/05/2024 COMP. METAB OLIC PANEL (14) bilirubin, total <0.2 mg/dL 0.0-1. 2 Not Available [facility] ([facility]) [address] [place], [address], 04/05/2024 06:19:18 04/04/19 25 04/05/2024 COMP. METAB OLIC PANEL (14) alkaline phosphatase 112 IU/L 44-121 Not Available [facility] ([facility]) [address] [place], [address], 04/05/2024 06:19:18 04/04/19 25 04/05/2024 COMP. METAB OLIC PANEL (14) AST (SGOT) 12 IU/L 0-40 Not Available [facility] ([facility]) [address] [place], [address], 04/05/2024 06:19:18 04/04/19 25 04/05/2024 COMP. METAB OLIC PANEL (14) ALT (SGPT) 9 IU/L 0-44 Not Available [facility] ([facility]) [address] [place], [address], 04/05/2024 06:19:18 04/04/19 25 04/05/2024 VITAM IN B12 AND FOLAT E vitamin B12 288 pg/mL 232-12 45 Not Available [facility] ([facility]) [address] [place], [address], 04/05/2024 06:19:19 04/04/19 25 04/05/2024 VITAM IN B12 AND FOLAT E folate (folic acid), serum 6.5 NG/mL >3.0 A serum folat e nargis ntrat ion of less than 3.1 ng/mL is consi dered to repre sent clini linden defic iency . Not Available [facility] ([facility]) [address] [place], [address], 04/05/2024 06:19:19 04/04/19 25 04/05/2024 IRON AND TIBC iron bind.cap.(TI BC) 265 ug/dL 250-45 0 Not Available [facility] ([facility]) [address] [place], [address], 04/05/2024 06:19:20 04/04/19 25 04/05/2024 IRON AND TIBC UIBC 234 ug/dL 111-34 3 Not Available [facility] ([facility]) [address] [facility], [place], [address], 04/05/2024 06:19:20 04/04/19 25 04/05/2024 IRON AND TIBC iron 31 ug/dL 38-169 below low normal Not Available [facility] ([facility]) [address] [facility], [place], [address], 04/05/2024 06:19:20 04/04/19 25 04/05/2024 IRON AND TIBC iron saturation 12 % 15-55 below low normal Not Available [facility] ([facility]) [address] [place], [address], 04/05/2024 06:19:20 04/04/19 25 04/05/2024 STEPHY TIN ferritin 98 NG/mL 30-400 Not Available [facility] ([facility]) [address] [place], [address], 04/05/2024 06:19:22 04/04/19 25 04/04/2024 CBC WITH DIFFE RENTI AL/PL ATELE T WBC 7.5 x10e3 /uL 3.4-10 .8 Not Available [facility] ([facility]) [address] [place], [address], 04/05/2024 06:19:23 04/04/19 25 04/04/2024 CBC WITH DIFFE RENTI AL/PL ATELE T RBC 3.77 x10e6 /uL 4.14-5 .80 below low normal Not Available [facility] ([facility]) [address] [place], [address], 04/05/2024 06:19:23 04/04/19 25 04/04/2024 CBC WITH DIFFE RENTI AL/PL ATELE T hemoglobin 11.3 g/dL 13.0-1 7.7 below low normal Not Available [facility] ([facility]) [address] [facility], [place], [address], 04/05/2024 06:19:23 04/04/19 25 04/04/2024 CBC WITH DIFFE RENTI AL/PL ATELE T hematocrit 34.7 % 37.5-5 1.0 below low normal Not Available [facility] ([facility]) [address] [facility], [place], [address], 04/05/2024 06:19:23 04/04/1904/04/2024 CBC WITH DIFFE RENTI AL/PL ATELE T MCV 92 fL 79-97 Not Available [facility] ([facility]) [address] [facility], [place], [address], 04/05/2024 06:19:23 04/04/1904/04/2024 CBC WITH DIFFE RENTI AL/PL ATELE T MCH 30.0 pg 26.6-3 3.0 Not Available [facility] ([facility]) [address] [facility], [place], [address], 04/05/2024 06:19:23 04/04/19 25 04/04/2024 CBC WITH DIFFE RENTI AL/PL ATELE T MCHC 32.6 g/dL 31.5-3 5.7 Not Available [facility] ([facility]) [address] [place], [address], 04/05/2024 06:19:23 04/04/1904/04/2024 CBC WITH DIFFE RENTI AL/PL ATELE T RDW 13.9 % 11.6-1 5.4 Not Available [facility] ([facility]) [address] [place], [address], 04/05/2024 06:19:23 04/04/1904/04/2024 CBC WITH DIFFE RENTI AL/PL ATELE T platelets 468 x10e3 /uL 150-45 0 above high normal Not Available [facility] ([facility]) [address] [facility], [place], [address], 04/05/2024 06:19:23 04/04/19 25 04/04/2024 CBC WITH DIFFE RENTI AL/PL ATELE T neutrophils 64 % notest ab. Not Available [facility] ([facility]) [address] [facility], [place], [address], 04/05/2024 06:19:23 04/04/19 25 04/04/2024 CBC WITH DIFFE RENTI AL/PL ATELE T lymphs 16 % notest ab. Not Available [facility] ([facility]) [address] [facility], [place], [address], 04/05/2024 06:19:23 04/04/19 25 04/04/2024 CBC WITH DIFFE RENTI AL/PL ATELE T monocytes 13 % notest ab. Not Available [facility] ([facility]) [address] [facility], [place], [address], 04/05/2024 06:19:23 04/04/19 25 04/04/2024 CBC WITH DIFFE RENTI AL/PL ATELE T eos 6 % notest ab. Not Available [facility] ([facility]) [address] [facility], [place], [address], 04/05/2024 06:19:23 04/04/19 25 04/04/2024 CBC WITH DIFFE RENTI AL/PL ATELE T basos 1 % notest ab. Not Available [facility] ([facility]) [address] [facility], [place], [address], 04/05/2024 06:19:23 04/04/19 25 04/04/2024 CBC WITH DIFFE RENTI AL/PL ATELE T neutrophils (absolute) 4.8 x10e3 /uL 1.4-7. 0 Not Available [facility] ([facility]) [address] [facility], [place], [address], 04/05/2024 06:19:23 04/04/1904/04/2024 CBC WITH DIFFE RENTI AL/PL ATELE T lymphs (absolute) 1.2 x10e3 /uL 0.7-3. 1 Not Available [facility] ([facility]) [address] [facility], [place], [address], 04/05/2024 06:19:23 04/04/1904/04/2024 CBC WITH DIFFE RENTI AL/PL ATELE T monocytes(ab solute) 1.0 x10e3 /uL 0.1-0. 9 above high normal Not Available [facility] ([facility]) [address] [facility], [place], [address], 04/05/2024 06:19:23 04/04/1904/04/2024 CBC WITH DIFFE RENTI AL/PL ATELE T eos (absolute) 0.5 x10e3 /uL 0.0-0. 4 above high normal Not Available [facility] ([facility]) [address] [facility], [place], [address], 04/05/2024 06:19:23 04/04/1904/04/2024 CBC WITH DIFFE RENTI AL/PL ATELE T baso (absolute) 0.1 x10e3 /uL 0.0-0. 2 Not Available [facility] ([facility]) [address] [facility], [place], [address], 04/05/2024 06:19:23 04/04/1904/04/2024 CBC WITH DIFFE RENTI AL/PL ATELE T immature granulocytes 0 % notest ab. Not Available [facility] ([facility]) [address] [facility], [place], [address], 04/05/2024 06:19:23 04/04/1904/04/2024 CBC WITH DIFFE RENTI AL/PL ATELE T immature grans (abs) 0.0 x10e3 /uL 0.0-0. 1 Not Available [facility] ([facility]) [address] [facility], [place], [address], 04/05/2024 06:19:23 04/04/19 25 04/04/2024 RETIC ULOCY TE COUNT reticulocyte count 3.6 % 0.6-2. 6 above high normal Not Available [facility] ([facility]) [address] [facility], [place], [address], 04/05/2024 06:19:24 04/07/19 25 04/08/2024 COLOF IT,OC CULT BLOOD ,FECA L,IA occult blood, fecal, ia NEGATI VE negati ve Not Available [facility] ([facility]) [address] [facility], [place], [address], 04/08/2024 12:46:49 04/07/19 25 04/07/2024 nonin vasiv e color ectal cance r DNA + occul t blood scree geni, narra tive, inter preta tion, stool fecal occult blood test negati ve Not Available Not Available 13:33:55 02/29/20 24 02/29/2024 XR, chest , 2 view No observ ation record ed. [address], [address], 03/06/2024 17:54:59 03/06/19 25 03/06/2024 XR, chest , 2 view No observ ation record ed. [address] [address], [place], [address], 03/11/2024 16:08:14 03/13/19 25 03/13/2024 XR, chest , 2 view No observ ation record ed. [address], [address], 03/13/2024 21:07:32 03/13/19 25 03/13/2024 CT, abdom en + pelvi s, w/o contr ast No observ ation record ed. [facility] [address] [facility] [address], [place], [address], 03/14/2024 12:28:51 03/14/19 25 03/14/2024 US, renal No observ ation record ed. [address] [facility] [address], [place], [address], 03/17/2024 14:01:09 05/09/19 elect lj mejia am No observ ation record ed. WILLAMINA In-Office Order Internal Use Only DO Not Attach Compendium DO Not Attach Compendium, Do Not Delete/merge, [id number] 05/08/2024 10:59:39 05/09/19 25 05/08/2024 imagi ng/di agnos tic resul t No observ ation record ed. [facility] [address] [facility] [address], [place], [address], 05/08/2024 13:10:28 Result Notes None recorded. Problems Name Problem SNOMED Code Status Onset Date Resolution Date Notes Provider Name and Address Organization Details Recorded Time History of cerebrovasc ular accident 560077980 Active 2023 Lyle Hickman MD Attn: Terrance krishnan,[address] [facility], [place], [address], [place] - [facility] 4 17:24:40 Chronic low back pain 747347452 Active 2023 Lyle Hickman MD Attn: Terrance krishnan,[address] [facility], [place], [address], [place] [facility] 4 17:24:41 Peripheral arterial occlusive disease 163859493 Active 2023 Lyle Hickman MD Attn: Terrance krishnan,[address] [facility], [place], [address], [place] [facility] 4 17:24:43 Seizure disorder 897122426 Active 2023 Lyle Hickman MD Attn: Terrance krishnan,[address] [facility], [place], [address], [place] [facility] 4 17:24:46 Hyperlipide kiara 58579342 Active 2023 Lyle Hickman MD Attn: Terrance krishnan,[address] [facility], [place], [address], [place] [facility] 4 17:24:50 Essential hypertensio n 90628119 Active 2023 Lyle Hickman MD Attn: Terrance krishnan,[address] [facility], [place], [address], [place] [facility] 4 17:24:54 Bilateral tinnitus 4658640294251 Active 2023 Lyle Hickman MD Attn: Terrance krishnan,[address] [facility], [place], [address], [place] [facility] 4 20:58:29 Overweight 005392959 Active 2023 Lyle Hickman MD Attn: Terrance krishnan,[address] [facility], [place], [address], [place] [facility] 4 20:58:30 Vitamin D below reference range 898238799 Active 2023 Lyle Hickman MD Attn: Terrance krishnan,[address] [facility], [place], [address], [place] [facility] 4 20:58:37 Dyspnea 433765106 Active 2024 Govind Grimes [place], [place] [facility] 5 11:08:09 Anemia 163120637 Active 2024 Govind Grimes [place] [facility] 5 11:08:10 Congestive heart failure 79946349 Active 2024 Govind Grimes [place], [place] [facility] 5 11:08:11 Problem Notes None recorded. Procedures Surgical History Date Name Laterality Status Provider Name and Address Organization Details Recorded Time Cataract surg w/iol 1 stage completed CHAZ Garcia - [facility] 05/23/2023 11:31:27 Imaging Results Imaging Date Name Status LastModified by Organization Details LastModified Time 02/29/2024 XR, chest, 2 view completed [address], [address], 03/06/2024 17:54:59 03/06/2024 XR, chest, 2 view completed [address], [address], 03/11/2024 16:08:14 03/13/2024 XR, chest, 2 view [address], [address], 03/13/2024 21:07:32 03/13/2024 CT, abdomen + pelvis, w/o contrast completed [address], [address], 03/14/2024 12:28:51 03/14/2024 US, renal completed [address], [address], 03/17/2024 14:01:09 05/08/2024 electrocardiogram completed WILLAMINA In-Offi ce Order Internal Use Only DO Not Attach Compendium DO Not Attach Compendium, Do Not Delete/merge, [id number] 05/08/2024 10:59:39 05/08/2024 imaging/diagnostic result active [address], [address], 05/08/2024 13:10:28 Procedure Notes None recorded. Medical Equipment None Reported. Allergies Allergen ID Allergen Name Allergen Category Reaction Reaction Severity Criticality Documentation Date Start Date Code Code System Note Provider Name and Address Organization Details Recorded Time 462486 amoxicill in medicatio n nausea mild Not available 05/23/2023 723 RxNorm Not Available Not Available Not Available Medications Name Sig Start Date Stop Date Status Note LastModified by Organization Details LastModified Time atorvastati n 40 mg tablet TAKE 1 TABLET BY MOUTH EVERY DAY 2024 active Not Available Not Available Not Avai lable doxycycline hyclate 100 mg capsule Take 1 capsule twice a day by oral route for 10 days. 04/09 completed Not Available Not Available Not Available levetiracet am 500 mg tablet TAKE 1 TABLET BY MOUTH TWICE A DAY active Not Available Not Available No t Available urea 40 % topical cream APPLY TO CALLUSES DAILY active Not Available Not Available No t Available prednisone 20 mg tablet 05/08 completed Not Available Not Available Not Available acetaminoph en 300 mg-codeine 30 mg tablet TAKE 1 TABLET BY MOUTH EVERY 4 HOURS NEEDED FOR PAIN 05/08 completed Not Available Not Available Not Available clopidogrel 75 mg tablet TAKE 1 TABLET BY MOUTH EVERY DAY active Not Available Not Available No t Available amlodipine 10 mg tablet TAKE 1 TABLET BY MOUTH EVERY DAY 05/08 completed Not Available Not Available Not Available gemfibrozil 600 mg tablet TAKE 1 TABLET BY MOUTH TWICE A DAY 2023 active Not Available Not Available Not Avai lable Lasix 20 mg tablet Take 1 tablet every day by oral route. 2024 active Not Available Not Available Not Avai lable cephalexin 500 mg capsule TAKE 1 CAPSULE BY MOUTH 4 TIMES A DAY 10/23 completed Not Available Not Available Not Available ergocalcife rol (vitamin D2) 1,250 mcg (50,000 unit) capsule TAKE 1 CAPSULE EVERY WEEK BY ORAL ROUTE. active Not Available Not Available No t Available lisinopril 10 mg-hydrochl orothiazide 12.5 mg tablet TAKE 1 TABLET BY MOUTH EVERY DAY active Not Available Not Available No t Available ezetimibe 10 mg tablet TAKE 1 TABLET BY MOUTH EVERY DAY 2024 active Not Available Not Available Not Avai lable Fish Oil 1,000 mg (120 mg-180 mg) capsule Take 3 capsules every day by oral route. active Not Available Not Available No t Available aspirin 81 mg capsule Take 1 capsule every day by oral route. active Not Available Not Available No t Available Vitals Date Recorded Body height Body mass index (BMI) Body weight Heart rate Oxygen saturation Oxygen saturation in Arterial blood by Pulse oximetry Systolic blood pressure Diastolic blood pressure Provider Name and Address Organization Details Last Updated DateTime 4 175.26 cm 23.5 kg/m2 14350.1 9 g 72 /min 98 % 98 % 118 mm[Hg] 64 mm[Hg] Tiesha English MA [facility] 4 11:27:29 Date Recorded Body height Body mass index (BMI) Body weight Heart rate Oxygen saturation Oxygen saturation in Arterial blood by Pulse oximetry Provider Name and Address Organization Details Last Updated DateTime 5 175.26 cm 20.5 kg/m2 29263.9 8 g 68 /min 98 % 98 % [facility] 5 15:28:20 Date Recorded Body height Body mass index (BMI) Body weight Heart rate Oxygen saturation Oxygen saturation in Arterial blood by Pulse oximetry Systolic blood pressure Diastolic blood pressure Provider Name and Address Organization Details Last Updated DateTime 5 175.26 cm 21.6 kg/m2 92109.6 4 g 83 /min 98 % 98 % 124 mm[Hg] 68 mm[Hg] Tiesha English MA [facility] 5 16:04:22 Date Recorded Body height Body mass index (BMI) Body weight Heart rate Oxygen saturation Oxygen saturation in Arterial blood by Pulse oximetry Systolic blood pressure Diastolic blood pressure Provider Name and Address Organization Details Last Updated DateTime 5 175.26 cm 22.4 kg/m2 36767.2 4 g 83 /min 100 % 100 % 124 mm[Hg] 74 mm[Hg] [facility] 5 11:48:37 Date Recorded Body height Body mass index (BMI) Body weight Heart rate Oxygen saturation Oxygen saturation in Arterial blood by Pulse oximetry Systolic blood pressure Diastolic blood pressure Provider Name and Address Organization Details Last Updated DateTime 5 175.26 cm 22.5 kg/m2 70537.4 g 157 /min 97 % 97 % 140 mm[Hg] 90 mm[Hg] Kristy Fairbanks MA [facility] 5 10:20:56 Social History Question Answer Notes LastModified by Organizat ion Details LastModified Time Tobacco Smoking Status Former Smoker Lyric Orlando MA null, [facility] 05/23/2023 11:29:45 Do You Have An Advance Directive? No Information not available 05/23/2023 What Is Your Level Of Alcohol Consumption? Moderate Information not available 05/23/2023 Are You Blind Or Do You Have Difficulty Seeing? No Information not available 05/23/2023 What Is Your Level Of Caffeine Consumption? Moderate Information not available 05/23/2023 In The 14 Days Before Symptom Onset, Have You Had Close Contact With A Laboratory-confir med COVID-19 While That Case Was Ill? No Information not available 11/20/2023 In The 14 Days Before Symptom Onset, Have You Had Close Contact With A Person Who Is Under Investigation For COVID-19 While That Person Was Ill? No Information not available 11/20/2023 Have You Been To An Area Known To Be High Risk For COVID-19? No Information not available 11/20/2023 Are You Currently Employed? No Information not available 05/23/2023 Are You Deaf Or Do You Have Serious Difficulty Hearing? Yes Pt States Wears Hearing Aids, Cb-rma Information not available 05/23/2023 What Type Of Diet Are You Following? REGULAR Information not available 05/23/2023 Do You Or Have You Ever Used E-cigarettes Or Vape? Current User Of Electronic Cigarettes Information not available 05/23/2023 Are There Any Guns Present In Your Home? No Information not available 11/20/2023 What Was The Date Of Your Most Recent Tobacco Screening? 05/08/2024 [email or web address] Information not available 05/08/2024 What Is Your Current Pack Years? [email or web address] ears Information not available 05/23/2023 What Is Your Relationship Status? Information not available 05/23/2023 Do You Use Your Seat Belt Or Car Seat Routinely? Yes Information not available 05/23/2023 Do You Have Smoke And Carbon Monoxide Detectors In Your Home? Yes Information not available 05/23/2023 Do You Or Have You Ever Used Smokeless Tobacco? Never Used Smokeless Tobacco Information not available 05/23/2023 How Much Tobacco Do You Smoke? 1 PPD Information not available 05/23/2023 Do You Feel Stressed (tense, Restless, Nervous, Or Anxious, Or Unable To Sleep At Night)? [id number] Information not available 11/20/2023 Do You Use Any Illicit Or Recreational Drugs? No Information not available 05/23/2023 Do You Use Sunscreen Routinely? No Information not available 05/23/2023 Has Tobacco Cessation Counseling Been Provided? Yes Information not available 05/23/2023 On What Date Was Tobacco Cessation Counseling Provided? 04/09/2024 Information not available 04/09/2024 How Many Years Have You Smoked Tobacco? 30 Information not available 05/23/2023 Do You Or Have You Ever Used Any Other Forms Of Tobacco Or Nicotine? Yes Information not available 05/23/2023 How Many Years Have You Used E-cigarettes Or Vape? 10 Information not available 05/23/2023 Sex: Male Functional Status Question Answer Note LastModified by Organizat ion Details LastModified Time Are you able to care for yourself? Yes Information not available 05/23/2023 What is your exercise level? Occasional Information not available 05/23/2023 Mental Status None recorded. Family History Relationship Description Onset Age of this Age Resolved Age Notes LastModified by Organization Details LastModified Time Father Heart disease 82 [email or web address] Not available 05/04 11:26:55 Father Hypertensive disorder 82 [email or web address] Not available 05/04 11:27:44 Father Hypercholest erolemia 82 [email or web address] Not available 05/04 11:27:13 Father Blood coagulation disorder 82 [email or web address] Not available 05/04 11:27:25 Mother Heart disease 91 [email or web address] Not available 05/04 11:27:40 Mother Hypertensive disorder 91 [email or web address] Not available 05/04 11:28:12 Mother Hypercholest erolemia 91 [email or web address] Not available 05/04 11:28:06 Mother Cerebrovascu lar accident 91 [email or web address] Not available 0 05/23/2023 11:28:22 Mother Dementia 91 [email or web address] Not availa ble 05/23/2023 11:28:31 Medical History Condition Response Coronary Artery Disease N Other N Atrial Fibrillation N High Blood Pressure Y Kidney or Bladder Problems N Depression Y COPD N Blood Clots N GI Problems N Skin Problems Y Anemia N Heart Attack (CT) N Anxiety Disorder N Diabetes N Muscle, Joint, or Bone Problems Y Seizures/Epilepsy N Acid Reflux (GERD) N Cancer N Stroke Y Asthma N Allergies N Have you had a PSA blood test in the las t year? Y High Cholesterol Y Liver Disease N Headaches N Heart Failure N Osteoporosis N Immunizations Vaccine Type Date Status Note Provider Nam e and Address Organization Details Recorded Time Influenza, split virus, quadrivalent, preservative 6 completed Tiesha English [place], [place] [facility] 01/22/2024 11:27:34 Influenza, split virus, quadrivalent, preservative 7 completed Tiesha Amador, [place] [facility] 01/22/2024 11:27:35 zoster recombinant 3 completed Tiesha English [place] [facility] 01/22/2024 11:27:35 Influenza, high-dose, quadrivalent, PF 0 completed Tiesha English [place] [facility] 01/22/2024 11:27:35 Influenza, high-dose, quadrivalent, PF 1 completed Tiesha English [place] [facility] 01/22/2024 11:27:35 Influenza, high-dose, quadrivalent, PF 2 completed Tiesha English [place] [facility] 01/22/2024 11:27:35 Influenza, adjuvanted, quadrivalent, PF 3 completed Tiesha Amador, [place] [facility] 01/22/2024 11:27:35 COVID-19, mRNA, LNP-S, PF, 30 mcg/0.3 mL dose 1 completed Tiesha English [place] [facility] 01/22/2024 11:27:35 COVID-19, mRNA, LNP-S, PF, 30 mcg/0.3 mL dose 1 completed Tiesha English [place] [facility] 01/22/2024 11:27:35 COVID-19, mRNA, LNP-S, PF, 30 mcg/0.3 mL dose 1 completed Tiesha English [place] [facility] 01/22/2024 11:27:35 COVID-19, mRNA, LNP-S, PF, 30 mcg/0.3 mL dose 1 completed Tiesha English [place] [facility] 01/22/2024 11:27:35 COVID-19, mRNA, LNP-S, PF, 30 mcg/0.3 mL dose, kwame-sucrose 2 completed Tiesha English [place] [facility] 01/22/2024 11:27:35 COVID-19, mRNA, LNP-S, bivalent, PF, 30 mcg/0.3 mL dose 3 completed Tiesha English [place] [facility] 01/22/2024 11:27:35 COVID-19, mRNA, LNP-S, bivalent, PF, 30 mcg/0.3 mL dose 2 completed Tiesha English [place], [place] [facility] 01/22/2024 11:27:35 RSV, recombinant, protein subunit RSVpreF, adjuvant reconstituted, 0.5 mL, PF 3 completed Tiesha English [place] [facility] 01/22/2024 11:27:35 COVID-19, mRNA, LNP-S, PF, kwame-sucrose, 30 mcg/0.3 mL 3 completed Tiesha [place] [facility] 01/22/2024 11:27:35 pneumococcal polysaccharide PPV23 0 completed Tiesha [place] [facility] 01/22/2024 11:27:35 pneumococcal polysaccharide PPV23 2 completed Tiesha [place] [facility] 01/22/2024 11:27:35 influenza, unspecified formulation 8 completed Tiesha [place] [facility] 01/22/2024 11:27:35 influenza, unspecified formulation 4 completed Tiesha [place] [facility] 01/22/2024 11:27:35 Pneumococcal conjugate PCV 13 9 completed Tiesha [place] [facility] 01/22/2024 11:27:35 zoster live 6 completed Tiesha [place] [facility] 01/22/2024 11:27:35 zoster live 6 [place]AZ [place] [facility] 01/22/2024 11:27:35 Influenza, high-dose, trivalent, PF 9 [place] [facility] 01/22/2024 11:27:35 Influenza, split virus, trivalent, preservative 5 completed Tiesha [place] [facility] 01/22/2024 11:27:35 zoster recombinant 4 [place] [facility] 05/08/2024 10:18:32 influenza, unspecified formulation 4 completed Tiesha [place] [facility] 01/22/2024 11:28:38 Past Encounters Encounter ID Performer Location Encounter Start Date Encounter Closed Date Diagnosis/Indication Diagnosis SNOMED-CT Code Diagnosis ICD10 Code Diagnosis Note [id number] MD Claudio Issa (Adult Med) [address] [place] [address] 05/23/2023 11:05:24 05/23/2023 11:50:44 Essential hypertension 65025407 I10 Hyperlipidemia 79375471 E78.5 Screening for malignant neoplasm of prostate 934018568 Z12.5 Seizure disorder 8555862 02 G40.909 Peripheral arterial occlusive disease 400163275 I73.9 Chronic low back pain 27 5966339 M54.50 History of cerebrovascular accident 424996606 Z86.73 [id number] [address] [facility] [address] [place] [address] 10/01/2023 10:27:24 10/01/2023 11:00:54 Essential hypertension 65579698 I10 Long-term drug therapy 181854913 Z79.899 Screening for malignant neoplasm of prostate 251278767 Z12.5 Chronic low back pain 27 6726712 M54.50 Hyperlipidemia 17157570 E78.5 Peripheral arterial occlusive disease 284991386 I73.9 Seizure disorder 0224366 02 G40.491 [id number] MD Claudio Issa (Adult Med) [address] [place] [address] 11/20/2023 11:52:02 11/20/2023 12:31:08 Overweight 547854881 E66.3 Bilateral tinnitus 55307 95519 102 H93.13 Essential hypertension 69100389 I10 Chronic low back pain 27 9834654 M54.50 History of cerebrovascular accident 737454739 Z86.73 Hyperlipidemia 21309838 E78.5 Peripheral arterial occlusive disease 860191543 I73.9 Seizure disorder 3044434 02 G40.909 Vitamin D below reference range 955525953 E55.9 Osteoporosis 27342736 M8 1.0 [id number] MD Claudio Issa (Adult Med) [address] [place] [address] 01/22/2024 11:14:30 01/22/2024 12:24:13 Body mass index 20-24 - normal 674043076 Z68.23 Essential hypertension 32472107 I10 Hyperlipidemia 28144963 E78.5 Vitamin D below reference range 986674121 E55.9 Chronic low back pain 27 6672711 M54.50 Peripheral arterial occlusive disease 266966246 I73.9 Seizure disorder 8262034 02 G40.371 [id number] MD Claudio Issa (Adult Med) [address] [place] [address] 03/12/2024 15:04:39 03/12/2024 16:21:54 Body mass index 20-24 - normal 238192071 Z68.23 Cough 10256967 R05.9 Low blood pressure 65334 003 I95.9 Low back pain 139835902 M54.50 Weight loss 04457942 R63 .4 [id number] MD Claudio Issa (Adult Med) [address] [place] [address] 03/19/2024 15:52:44 03/19/2024 16:57:49 Body mass index 20-24 - normal 716295661 Z68.21 Essential hypertension 10402553 I10 Acute kidney injury 1466 9001 N17.9 COVID-19 036782383 U07.1 [id number] MD Claudio Issa (Adult Med) [address] [place] [address] 04/09/2024 11:03:17 04/09/2024 12:08:31 Body mass index 20-24 - normal 905438471 Z68.21 Essential hypertension 76988694 I10 Hyperlipidemia 56480841 E78.5 Chronic low back pain 27 1562801 M54.50 Seizure disorder 9931105 02 G40.767 [id number] Govind Grimes MA [facility] [place] [address] [place] [address] 05/08/2024 10:05:57 05/08/2024 11:07:29 Overweight 123980279 E66.3 Essential hypertension 84868495 I10 Dyspnea 906737325 R06.00 Anemia 065940741 D64.9 Congestive heart failure 33503022 I50.9 Health Concerns Section Related Observation LastModified by Organization Detai ls LastModified Time None Recorded Concern Status LastModified by Organization Details LastModified Time None Recorded Advance Directives Directive N: Payers Encounter Date Sequence Insurance Name Policy Number Policy Diaz Covered Member ID Diaz Member ID Guarantor Name 01/22/2024 1 [facility] (MEDICARE REPLACEMENT/A DVANTAGE - HMO) [id number] Lew Ovalles [id number] Lew Ovalles 03/12/2024 1 [facility] (MEDICARE REPLACEMENT/A DVANTAGE - HMO) [id number] Lew Ovalles [id number] Lew Ovalles 03/19/2024 1 [facility] (MEDICARE REPLACEMENT/A DVANTAGE - HMO) [id number] Lew Ovalles [id number] Lew Ovalles 04/09/2024 1 [facility] (MEDICARE REPLACEMENT/A DVANTAGE - HMO) [id number] Lew Ovalles [id number] Lew vOalles Notes Date Note Type Note Provider Name and Address Organization Details Recorded Time 4 text/html low back pain has been stable peripheral arterial occlusive disease no claudication he has also had a carotid endarterectomy site and there is no TIA type symptomatology. Seizures doing fine no seizure disorder. Dyslipidemia [place] watch his diet he is take his atorvastatin without side effects. Good standing with the use a little lose a little bit of weight but he has had some trouble doing that smokes an occasional cigar still Lyle Hickman MD Attn: Accounting,[address] [facility], [place], [address], [facility] 01/26/2024 20:50:23 5 text/html cough congestion for a couple of weeks not getting any better he has lost some weight just feels bad with fatigue not coughing up any blood he is not dizzy on standing but he does tire easily Lyle Hickman MD Attn: Accounting,[address] [facility], [place], [address], [facility] 03/16/2024 17:25:53 5 text/html patient was hospitalized with significant lab abnormalities BUN of 150 with a creatinine of 2 point 8 was given IV fluids with discharge BUN of 38 and a creatinine of 0.9 his diarrhea has resolved he was diagnosed with COVID while he was in the hospital however he had had a cough for a month he is feeling better he is taking some energy drinks he is not dizzy on standing and he never was. He had a CT of the abdomen and pelvis that was unremarkable in his renal ultrasound was normal he has been off the lisinopril hydrochlorothiazide since admission Lyle Hickman MD Attn: Accounting, [address] [facility], [place], [address], [facility] 03/19/2024 22:11:06 5 text/html short interval follow up his renal function has normalized he is going to start taking some iron for his anemia blood pressure is controlled he is not dizzy Lyle Hickman MD Attn: Accounting,[address] [facility], [place], [address], [facility] 04/13/2024 18:25:56
--- OUTSIDE RECORDS SUMMARY | 2024-05-08 12:31 | XMS_ITS | Clinical Summary ---
Author Organization [facility] Address [address] [place] [address] Care Team Providers Care Track Moving Machine Operator Name Role Phone Unavailable Primary Care Provider Unavailabl e Source Comments [facility],non-owned Affiliates and Associated Physician Practices is amultiple site organization consisting of ambulatory clinics and hospital sitesin [place], [place], [place] and [place]. This disclosure is being madepursuant to the Care Everywhere program and may not contain all information available regarding this patient. Last updated 17.[facility] [employer] Social History Tobacco Use Types Packs/Day Years Used Date Smoking Tobacco: Never Assessed Sex and Gender Information Value Date Recorded Sex Assigned at Not on file Gender Identity Not on file Sexual Orientation Not on file Last Filed Vital Signs Vital Sign Reading Time Taken Comments Blood Pressure 111/71 06/04/2012 9:13 AM CDT Pulse - - Temperature 36.4 C (97.6 F) 06/04/2012 9:13 AM CDT Respiratory Rate - - Oxygen Saturation - - Inhaled Oxygen Concentration - - Weight 74.8 kg (165 lb) 06/04/2012 9:13 AM CDT Height 175.3 cm (5' 9 ) 06/04/2012 9:13 AM CDT Body Mass Index 24.37 06/04/2012 9:13 AM CDT Plan of Treatment Health Maintenance Due Date Last Done Comments COLOGUARD (AGES 45-75) - COL ON CA SCREENING 1952 COLON MONITORING 1952 COLONOSCOPY - COLON CA SCREENING 1952 CT COLONOGRAPHY - COLON CA SCREENING 1952 Colorectal Cancer Screening 1952 FIT - COLON CA SCREENING 1952 FLEX SIG - COLON CA SCREENING 1952 LIPID TESTING 1952 HEPATITIS C SCREENING 04/08/1970 DTAP/TDAP/TD VACCINES (1 - Tdap) 1971 PNEUMOCOCCAL VACCINE 50+ (1 of 1 - PCV) 2002 ZOSTER VACCINE (1 of 2) 2002 COVID-19 VACCINE ( - 2023-2 5 season) 2023 INFLUENZA VACCINE (#1) 2023 DEPRESSION SCREENING 03/05/2024 Respiratory Syncytial Virus (RSV) Vaccine Pt: or over 60 yrs (1 - 1-dose 75+ series) 2027 HEPATITIS B VACCINE Aged Out No longe r eligible based on patient's age to complete this topic HIB VACCINE Aged Out No longer eligi ble based on patient's age to complete this topic HPV VACCINE Aged Out No longer eligi ble based on patient's age to complete this topic MENINGOCOCCAL (Group B) VACCINE Aged Out No longer eligible based on patient's age to complete this topic MENINGOCOCCAL VACCINE Aged Out No kavitha chana eligible based on patient's age to complete this topic
--- OUTSIDE RECORDS SUMMARY | 2024-05-08 12:31 | XMS_ITS | Clinical Summary ---
Author Organization [facility] Address [address] [place] [address] Care Team Providers Care Linderman Machine Operator Name Role Phone Andre Hickman MD Primary Care Provider [phone] Allergies No known active allergies Medications aspirin 81 mg enteric coated tablet daily 9 Active atorvastatin (LIPITOR) 40 mg tablet Take 1 tablet (40 mg total) by mouth daily 0 Active celecoxib (CeleBREX) 200 mg capsule daily Active lisinopril-hydr oCHLOROthiazide (ZESTORETIC) 10-12.5 mg per tablet 1 Active docosahexaenoic acid/epa (FISH OIL ORAL) Fish Oil 1,000 mg capsule 3 daily Active gemfibroziL (LOPID) 600 mg tablet Take 1 tablet (600 mg total) by mouth 2 (two) times a day before breakfast and lunch Active levETIRAcetam (KEPPRA) 500 mg tablet TAKE 1 TABLET BY MOUTH TWICE A DAY 180 tablet 1 4 Active Active Problems Problem Noted Date Diagnosed Date Partial symptomatic epilepsy with complex partial seizures, not intractable, without status epilepticus 03/15/2020 Assessment & Plan (03/15/2020 12:50 PM ARMED GUARD): Patient is a former patient at [facility]. Prior medical records from [facility] have been obtained and reviewed today during today's visit to facilitate transfer in care. He has been prescribed levetiracetam 500 mg b.i.d. for post infarction partial onset seizures with good symptomatic relief, no seizures, no adverse effects. He is in need of refill of medication. He exhibits a normal neurological examination. I have renewed her levetiracetam 500 mg b.i.d. as previously prescribed, and I plan to see him back in 1 year's time for re-evaluation. 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 He currently is on aspirin for cerebrovascular prophylaxis in addition to anti lipid antihypertension medications. Resolved Problems Problem Noted Date Diagnosed Date Resolved Date Cerebrovascular accident (CVA) 04/04/2024 Overview (03/31/2022): Stroke Encounters Date Type Department Care Team Description 04/04/2024 8:30 AM ARMED GUARD Office Visit [facility] [address] [place] [address] Andre Newton MD Partial symptomatic epilepsy with complex partial seizures, not intractable, without status epilepticus (HCC) (Primary Dx); History of transient ischemic attack and cerebral infarction from Last 3 Months Surgical History Surgery Date Site/Laterality Comments OTHER SURGICAL HISTORY decompressive lumbar spine surgery KNEE SURGERY left knee surgery CAROTID ENARTERECTOMYY Carotid endarterectomy BACK SURGERY COLON SURGERY Medical History Medical History Date Comments Cerebrovascular accident (CVA) (HCC) Stroke Hypertension Hypertension High cholesterol Bleeding tendency Family History Medical History Relation Name Comments Cancer Father Cancer -unknown ; Heart disease Father Heart disease; Stroke Mother Relation Name Status Comments Father Mother Social History Tobacco Use Types Packs/Day Years Used Date Smoking Tobacco: Former Smokeless Tobacco: Never Tobacco Cessation:Counseling Given: Not Answered Alcohol Use Standard Drinks/Week Comments Yes 0 (1 standard drink = 0.6 oz pur e alcohol) Sex and Gender Information Value Date Recorded Sex Assigned at Not on file Legal Sex Male 12:05 PM ARMED GUARD Gender Identity Not on file Sexual Orientation Not on file Obstetrics History Last Filed Vital Signs Vital Sign Reading Time Taken Comments Blood Pressure 149/90 04/04/2024 8:22 AM ARMED GUARD Pulse 90 04/04/2024 8:22 AM ARMED GUARD Temperature 36.7 C (98 F) 03/15/2020 11:42 AM ARMED GUARD Respiratory Rate 18 04/04/2023 8:09 AM ARMED GUARD Oxygen Saturation 97% 04/04/2024 8:22 AM ARMED GUARD Inhaled Oxygen Concentration - - Weight 68.8 kg (151 lb 9.6 oz) 04/04/2024 8:22 A M ARMED GUARD Height 175.3 cm (5' 9.02 ) 04/04/2024 8:22 AM CS T Body Mass Index 22.38 04/04/2024 8:22 AM ARMED GUARD Plan of Treatment Health Maintenance Due Date Last Done Comments Colon Cancer Screening-Colonoscopy 1952 Depression Screening 1952 Fall Risk Assessment 1952 Hepatitis C Screening 1952 DTaP/Tdap/Td Vaccine (1 - Tdap) 1963 Hepatitis B Screening 1970 Abdominal Aortic Aneurysm (A AA) Screen 2017 Well Visit 65+ 2017 Zoster Vaccine (2 of 3) 04/03/2023 02/07/20 23, 05/04/2015, 04/19/2015 Influenza Vaccine (#1) 2023 3, 12/11/2021, 11/28/2020, Additional history exists Pneumococcal vaccine 65+ Completed 022, 11/22/2019, 11/23/2018 Insurance [facility] MDCR HMO REF [facility] MED[facility] Address: [facility] [address] [place] [address] [facility]CR HMO REF [facility] Address: [facility] [address] [place] [address] Care Teams Linderman Machine Operator Relationship Specialty Start Date End Date Andre Hickman MD PCP - General 10/18/10
--- OUTSIDE RECORDS SUMMARY | 2024-05-08 12:31 | XMS_ITS | Patient Health Summary ---
Author Organization [facility] Address [address] [facility] [place] [address] Care Team Providers Care Automotive Service Writer Name Role Phone Unavailable Primary Care Provider Unavailabl e Note from [facility],non-owned Affiliates and Associated Physician Practices is amultiple site organization consisting of ambulatory clinics and hospital sitesin [place], [place], [place] and [place]. This disclosure is being madepursuant to the Care Everywhere program and may not contain all information available regarding this patient. Last updated 17.[facility] Social History Tobacco Use Types Packs/Day Years [...] Mass Index 24.37 06/04/2012 9:13 AM CDT Procedures * XR LUMBAR SPINE 2 OR 3VW(Performed 06/04/2012) * XR LUMBAR SPINE 2 OR 3VW(Performed 02/14/2012) * XR LUMBAR SPINE 2 OR 3VW(Performed 11/22/2011) * XR LUMBAR SPINE 2 OR 3VW(Performed 10/11/2011) * XR LUMBAR SPINE 2 OR 3VW(Performed 09/08/2011) Results * XR LUMBAR SPINE 2 OR 3VW (06/04/2012 9:00 AM CDT) Only the most recent of5 resultswithin the time period is included. Anatomical Region Laterality Modality Spine Other Impressions 06/04/2012 3:38 PM CDT IMPRESSION: L1 compression deformity, unchanged. Grade 1 L4-L5 anterolisthesis, unchanged. Report dictated by Chevy Hansen M.D. I, Dr. ADEBAYO CARDOSO M.D. have personally reviewed and interpreted this examination/study. This report was electronically signed by ADEBAYO CARDOSO M.D. on 06/04/2012 3:38 PM . Narrative 06/04/2012 3:38 PM CDT Lumbar spine, 2 views HISTORY: L1 compression fracture COMPARISON: 02/14/2012 FINDINGS: The L1 compression deformity with associated vertebral body height loss is unchanged. The remaining vertebral body heights are maintained. The L4 pars defect with grade one L4-L5 anterolisthesis is unchanged. There are multilevel degenerative changes. A mild right lumbar scoliosis is unchanged. Aortoiliac calcifications are present. There are surgical sutures seen within the right abdomen. Procedure Note Adebayo Cardoso MD - 06/03/2017 Lumbar spine, 2 views HISTORY: L1 compression fracture COMPARISON: 02/14/2012 FINDINGS: The L1 compression deformity with associated vertebral body height loss isunchanged. The remaining vertebral body heights are maintained. The L4pars defect with grade one L4-L5 anterolisthesis is unchanged. There aremultilevel degenerative changes. A mild right lumbar scoliosis is unchanged. Aortoiliac calcifications arepresent. There are surgical sutures seen within the right abdomen. IMPRESSION IMPRESSION: L1 compression deformity, unchanged. Grade 1 L4-L5 anterolisthesis, unchanged. Report dictated by Chevy Hansen M.D. I, Dr. ADEBAYO CARDOSO M.D. have personally reviewed and interpreted thisexamination/study. This report was electronically signed by ADEBAYO CARDOSO M.D. on 06/04/20123:38 PM . Sunny Farr MD DIAGNOSTIC IMAGING O [facility]
--- OUTSIDE RECORDS SUMMARY | 2024-05-08 12:31 | XMS_ITS | Referral Summary ---
Author Organization [facility] Address [address] [place] [address] Care Team Providers Care Front Sight Attacher Name Role Phone Unavailable Primary Care Provider Unavailabl e Source Comments [facility],non-owned Affiliates and Associated Physician Practices is amultiple site organization consisting of ambulatory clinics and hospital sitesin [place], [place], [place] and [place]. This disclosure is being madepursuant to the Care Everywhere program and may not contain all information available regarding this patient. Last updated 17.[facility] Social History Tobacco Use Types Packs/Day Years [...] 06/04/2012 9:13 AM CDT Plan of Treatment Not on file
--- OUTSIDE RECORDS SUMMARY | 2024-05-08 12:31 | XMS_ITS | CONTINUITY OF CARE DOCUMENT ---
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 Davon Shepherd MD PVD active Lele Shepherd MD Carotid artery disease active Lele Shepherd MD Ventricular tachycardia active Lele delcid MD HTN essential active Lele Shepherd MD CVA active Lele Shepherd MD Claudication, intermittent active Lele yeh MD C V A / Stroke active ? Lele Shepherd MD (His tory of) Hypertension active ? Lele Shepherd MD Peripheral Vascular Disease active ? Lele doyle MD ENCOUNTERS Date Type Provider Location Encounter Diag nosis - In-person encounter Office Visit Lele Shepherd MD [facility] - In-person encounter Office Visit Lele Shepherd MD [facility] - In-person encounter Office Visit Lele Shepherd MD [facility] - In-person encounter Office Visit Lele Shepherd MD [facility] - In-person encounter Office Visit Lele Shepherd MD [facility] - In-person encounter Office Visit Lele Shepherd MD [facility] - In-person encounter Office Visit Lele Shepherd MD [facility] - In-person encounter Office Visit Lele Shepherd MD [facility] - In-person encounter Office Visit Lele Shepherd MD [facility] - In-person encounter Office Visit Lele Shepherd MD [facility] - In-person encounter Office Visit Lele Shepherd MD [facility] - In-person encounter Office Visit Lele Shepherd MD [facility] - In-person encounter Office Visit Lele Shepherd MD [facility] - In-person encounter Office Visit Lele Shepherd MD [facility] Family History of CVA or Stroke:PVDCarotid artery diseaseVentricular tachycardiaHTN essentialCVAClaudication, intermittentC V A / StrokeHypertensionPeripheral Vascular Disease VITAL SIGNS Date Observation Value Provider Body Mass Index (Ratio) 23.87 kg/m2 Sam Shepherd MD blood pressure, cuff size regular Ke rm Waters blood pressure, diastolic 80 mm[Hg] Ke chantali Jt blood pressure, systolic 142 mm[Hg] Jaclyn Waters oxygen saturation, oximetry 98 % Jovana Waters pulse rate 76 /min Jovana Lino er weight E&M 157 [lb_av] Jovana Lino er height E&M 68 [in_i] Jovana Lino lder Body Mass Index (Ratio) 24.17 kg/m2 Sam Shepherd MD blood pressure, cuff size regular Ja rret blood pressure, diastolic 67 mm[Hg] Ja rret blood pressure, systolic 106 mm[Hg] Jar ret pulse rate 71 /min Kirill y oxygen saturation, oximetry 98 % Kirill respiratory rate E&M 14 /min Kirill weight E&M 159 [lb_av] Kirill y height E&M 68 [in_i] Kirill y Body Mass Index (Ratio) 24.93 kg/m2 Micki valentine Puhse blood pressure, diastolic 79 mm[Hg] Jacquie nkLogic blood pressure, systolic 128 mm[Hg] Mariel kLogic pulse rate 72 /min Kirill y blood pressure, cuff size regular Ja rret blood pressure, diastolic 79 mm[Hg] Ja rret blood pressure, systolic 128 mm[Hg] Jar ret oxygen saturation, oximetry 98 % respiratory rate E&M 12 /min Kirill weight E&M 164 [lb_av] Kirill y height E&M 68 [in_i] Kirill y Body Mass Index (Ratio) 25.85 kg/m2 Sam Shepherd MD blood pressure, diastolic 85 mm[Hg] St jose enrique Liz blood pressure, systolic 149 mm[Hg] Meera Liz oxygen saturation, oximetry 95 % Angeline Liz respiratory rate E&M 18 /min Angeline Soto jeronimo pulse rate 77 /min Angeline Agusto weight E&M 170 [lb_av] Angeline Agusto height E&M 68 [in_i] Angeline Agusto Body Mass Index (Ratio) 25.69 kg/m2 Sam Shepherd MD blood pressure, diastolic 62 mm[Hg] Jacquie nkLogic blood pressure, systolic 110 mm[Hg] Mariel kLogic blood pressure, diastolic 62 mm[Hg] Ca therine [place] blood pressure, systolic 110 mm[Hg] Cat herine [place] oxygen saturation, oximetry 97 % Evonne [place] respiratory rate E&M 16 /min Catheri ne Riaz pulse rate 86 /min Evonne [place] weight E&M 169 [lb_av] Evonne [place]ondo blood pressure, cuff size large Ca therine Riaz height E&M 68 [in_i] Evonne [place]roy[place]ondo Body Mass Index (Ratio) 25.54 kg/m2 Sam Shepherd MD blood pressure, cuff size regular Cy funmilayo Alejandro blood pressure, diastolic 80 mm[Hg] Cy funmilayo Alejandro blood pressure, systolic 140 mm[Hg] Michelle sherly Alejandro oxygen saturation, oximetry 94 % Stephanie Alejandro respiratory rate E&M 16 /min Stephaniesherly Alejandro pulse rate 82 /min Stephanie Tommybel l weight E&M 168 [lb_av] Stephanie Campbel l height E&M 68 [in_i] Stephanie Campbel l Body Mass Index (Ratio) 26.00 kg/m2 Sam Shepherd MD blood pressure, diastolic 88 mm[Hg] Cy nthia Alejandro blood pressure, systolic 147 mm[Hg] Michelle Alejadnro blood pressure, cuff size regular Maximiliano Alejandro respiratory rate E&M 16 /min Stephanie Alejandro pulse rate 82 /min Stephanie oakes oxygen saturation, oximetry 93 % Stephanie Alejandro weight E&M 171 [lb_av] Stephanie oakes height E&M 68 [in_i] Stephanie oakes Body Mass Index (Ratio) 25.85 kg/m2 Sam Shepherd MD blood pressure, cuff size regular Maximiliano Alejandro blood pressure, diastolic 60 mm[Hg] Maximiliano Alejandro blood pressure, systolic 110 mm[Hg] Michelle Alejandro oxygen saturation, oximetry 95 % Stephanie Alejandro respiratory rate E&M 16 /min Stephanie Alejandro pulse rate 90 /min Stephanie oakes weight E&M 170 [lb_av] Stephanie oakes height E&M 68 [in_i] Stephanie oakes Body Mass Index (Ratio) 24.93 kg/m2 Sam Shepherd MD blood pressure, cuff size regular Ke rri Karlaneyobani blood pressure, diastolic 70 mm[Hg] Ke rri Juliánuenenfroxanne blood pressure, systolic 130 mm[Hg] Jaclyn Waters oxygen saturation, oximetry 98 % Jovana Waters respiratory rate E&M 18 /min Jovana asif pulse rate 97 /min Jovana Lino lder weight E&M 164 [lb_av] Jovana Lino lder height E&M 68 [in_i] Jovana Lino lder Body Mass Index (Ratio) 25.54 kg/m2 Sam Shepherd MD blood pressure, diastolic 80 mm[Hg] Da michael Erika blood pressure, systolic 122 mm[Hg] Dac ia Erika oxygen saturation, oximetry 94 % Petra Erika respiratory rate E&M 16 /min Petra V oss pulse rate 80 /min Petra Erika weight E&M 168 [lb_av] Petra Erika height E&M 68 [in_i] Petra [place] Body Mass Index (Ratio) 25.85 kg/m2 Sam Shepherd MD blood pressure, diastolic 70 mm[Hg] Jason Galeana blood pressure, systolic 110 mm[Hg] Marce Galeana oxygen saturation, oximetry 98 % Marce Galeana respiratory rate E&M 18 /min Marce samano pulse rate 97 /min Marce Galeana weight E&M 170 [lb_av] Marce Galeana blood pressure, resting No Marce Galeana height E&M 68 [in_i] Marce Galeana blood pressure, diastolic 74 mm[Hg] Abbe Waters blood pressure, systolic 110 mm[Hg] Jaclyn Waters pulse rate 100 /min Jovana hernandez oxygen saturation, oximetry 96 % Jovana Waters respiratory rate E&M 16 /min Jovana asif Body Mass Index (Ratio) 26.30 kg/m2 Ren Waters weight E&M 173 [lb_av] Jovana Lino lder blood pressure, diastolic 76 mm[Hg] Chang Roy blood pressure, systolic 129 mm[Hg] Jaky Roy pulse rate 75 /min David perales oxygen saturation, oximetry 95 % David Roy respiratory rate E&M 16 /min Bethany Roy Body Mass Index (Ratio) 25.94 kg/m2 Laurita Roy weight E&M 170.6 [lb_av] David arciniega blood pressure, diastolic 80 mm[Hg] Chang Roy blood pressure, systolic 126 mm[Hg] Jaky Roy pulse rate 82 /min David perales oxygen saturation, oximetry 97 % David Roy respiratory rate E&M 17 /min Bethany Roy Body Mass Index (Ratio) 25.78 kg/m2 Laurita Roy weight E&M 169.6 [lb_av] David arciniega height E&M 68 [in_i] David perales ALLERGIES Allergy Name Onset Date Reaction Criticality Status AMOXICILLIN Low Criticality active RESULTS Date Observation Value Provider Reference Range Interpretation Location 4 prothrombin time (patient) 10.0 s [facility] 9.1-12.0 4 international normalized ratio (INR) 0.9 [facility] 0.9-1.2 4 lipoprotein, beta, serum, point, quantitative, calculated 90 mg/dL [facility] 0-99 4 HDL cholesterol, serum 51 mg/dL [facility] >39 4 triglyceride, serum, random 130 mg/dL [facility] 0-149 4 cholesterol, serum 164 mg/dL [facility] [phone]/03/0 4 calcium, serum 9.5 mg/dL [facility] 8.6-10.2 4 carbon dioxide, venous blood 20 mmol/L [facility] 20-29 4 chloride, serum 103 mmol/L [facility] 96-106 4 potassium, serum 4.1 mmol/L [facility] 3.5-5.2 4 sodium, serum 143 mmol/L [facility] 485-627 6790/03/0 4 urea nitrogen/creatinin e ratio, serum 16 [facility] 10-24 4 eGFR if 86 mL/min/{1. 73_m2} [facility] >59 4 eGFR if not 74 mL/min/{1. 73_m2} [facility] >59 4 creatinine, serum 1.03 mg/dL [facility] 0.76-1.27 4 urea nitrogen, blood 16 mg/dL [facility] 8-27 4 blood glucose, random 104 mg/dL [facility] 65-99 High 4 basophil count, absolute 0.1 x10E3/uL [facility] 0.0-0.2 4 Eosinophil Absolute Count 0.8 X10E3/UL [facility] 0.0-0.4 High 4 monocyte count, blood, automated 0.7 X10E3/UL [facility] 0.1-0.9 4 lymphocyte count, blood, automated 1.6 X10E3/UL [facility] 0.7-3.1 4 Absolute Neutrophils 6.6 X10E3/UL [facility] 1.4-7.0 4 basophils as percent of blood leukocytes 1 % [facility] Not Estab. 4 eosinophils as percent of blood leukocytes 8 % [facility] Not Estab. 4 monocytes as percent of blood leukocytes 8 % [facility] Not Estab. 4 lymphocytes as percent of blood leukocytes 16 % [facility] Not Estab. 4 neutrophils as percent of blood leukocytes 67 % [facility] Not Estab. 4 platelet count 367 X10E3/UL [facility] [phone]/03/0 4 red blood cell distribution width 12.6 % [facility] 11.6-15.4 4 mean corpuscular hemoglobin concentration, RBC 34.3 G/DL [facility] 31.5-35.7 4 mean corpuscular hemoglobin, RBC 31.8 pg [facility] 26.6-33.0 4 mean corpuscular volume, RBC 93 fL [facility] 79-97 4 hematocrit, blood 42.8 % [facility] 37.5-51.0 4 hemoglobin, blood 14.7 g/dL [facility] 13.0-17.7 4 erythrocyte (RBC) count 4.62 X10E6/UL [facility] 4.14-5.80 4 leukocyte count, blood 9.8 X10E3/UL [facility] 3.4-10.8 7 prothrombin time (patient) 10.1 s [facility] 9.1-12.0 7 international normalized ratio (INR) 1.0 [facility] 0.8-1.2 7 lipoprotein, beta, serum, point, quantitative, calculated 97 mg/dL [facility] 0-99 7 very low density lipoproteins 15 mg/dL [facility] 5-40 7 HDL cholesterol, serum 59 mg/dL [facility] >39 7 triglyceride, serum, random 74 mg/dL [facility] 0-149 7 cholesterol, serum 171 mg/dL [facility] [phone]/11/0 7 calcium, serum 9.5 mg/dL [facility] 8.6-10.2 7 carbon dioxide, venous blood 16 mmol/L [facility] 20-29 Low 7 chloride, serum 106 mmol/L [facility] 96-106 7 potassium, serum 4.1 mmol/L [facility] 3.5-5.2 7 sodium, serum 140 mmol/L [facility] [phone]/11/0 7 urea nitrogen/creatinin e ratio, serum 16 [facility] 10-24 7 eGFR if 87 mL/min/{1. 73_m2} [facility] >59 7 eGFR if not 75 mL/min/{1. 73_m2} [facility] >59 7 creatinine, serum 1.04 mg/dL [facility] 0.76-1.27 7 urea nitrogen, blood 17 mg/dL [facility] 8-27 7 blood glucose, random 92 mg/dL [facility] 65-99 7 basophil count, absolute 0.1 x10E3/uL [facility] 0.0-0.2 7 Eosinophil Absolute Count 0.5 X10E3/UL [facility] 0.0-0.4 High 7 monocyte count, blood, automated 0.6 X10E3/UL [facility] 0.1-0.9 7 lymphocyte count, blood, automated 1.9 X10E3/UL [facility] 0.7-3.1 7 Absolute Neutrophils 4.8 X10E3/UL [facility] 1.4-7.0 7 basophils as percent of blood leukocytes 1 % [facility] Not Estab. 7 eosinophils as percent of blood leukocytes 6 % [facility] Not Estab. 7 monocytes as percent of blood leukocytes 7 % [facility] Not Estab. 7 lymphocytes as percent of blood leukocytes 24 % [facility] Not Estab. 7 neutrophils as percent of blood leukocytes 62 % [facility] Not Estab. 7 platelet count 382 X10E3/UL [facility] 150-379 High 7 red blood cell distribution width 13.5 % [facility] 12.3-15.4 7 mean corpuscular hemoglobin concentration, RBC 34.3 G/DL [facility] 31.5-35.7 7 mean corpuscular hemoglobin, RBC 30.9 pg [facility] 26.6-33.0 7 mean corpuscular volume, RBC 90 fL [facility] 79-97 7 hematocrit, blood 42.8 % [facility] 37.5-51.0 7 hemoglobin, blood 14.7 g/dL [facility] 13.0-17.7 7 erythrocyte (RBC) count 4.76 X10E6/UL [facility] 4.14-5.80 7 leukocyte count, blood 7.8 X10E3/UL [facility] 3.4-10.8 1 urea nitrogen/creatinin e ratio, serum 14.4 [facility] - 1 Estimated Glomerular Filtration Rate (calc) 46.8 (?) [facility] 59.0 - Low 1 chloride, serum 99.7 mmol/L [facility] 98.0 - 107.0 1 potassium, serum 4.2 mmol/L [facility] 3.5 - 5.1 1 sodium, serum 138.0 mmol/L [facility] 136.0 - 145.0 1 creatinine, serum 1.6 mg/dL [facility] 0.7 - 1.2 High 1 carbon dioxide, venous blood 23.0 mmol/L [facility] 23.0 - 31.0 1 calcium, serum 9.7 mg/dL [facility] 8.6 - 10.2 1 urea nitrogen, blood 23.0 mg/dL [facility] 8.0 - 23.0 1 blood glucose, random 118.0 mg/dL [facility] 74.0 - 99.0 High 1 prothrombin time (patient) 9.6 s [facility] 9.0 - 11.5 1 international normalized ratio (INR) 0.9 [facility] 0.9 - 1.1 1 red blood cell distribution width, size density 48.3 fL [facility] - 1 immature granulocytes, percentage of total cells, blood 0.2 % [facility] - 1 nucleated red blood cells as percent of blood leukocytes 0.0 % [facility] - 1 red blood cell (erythrocyte) count, per high power field 0.0 10*3/UL [facility] - 1 eosinophils as percent of blood leukocytes 10.1 % [facility] - 1 neutrophils as percent of blood leukocytes 61.0 % [facility] - 1 Absolute Neutrophils 5.1 CELLS/UL [facility] 1.5 - 7.8 1 basophils as percent of blood leukocytes 1.2 % [facility] - 1 Absolute Basophils 0.1 CELLS/UL [facility] 0.0 - 0.2 1 monocytes as percent of blood leukocytes 6.9 % [facility] - 1 Absolute Monocytes 0.6 CELLS/UL [facility] 0.2 - 1.0 1 lymphocytes as percent of blood leukocytes 20.6 % [facility] - 1 Absolute Lymphocytes 1.7 CELLS/UL [facility] 0.9 - 3.9 1 mean platelet volume 10.4 (?) [facility] - 1 platelet count 430.0 THOUSAND/U L [facility] 100.0 - 400.0 High 1 mean corpuscular hemoglobin concentration, RBC 31.1 G/DL [facility] 31.0 - 38.0 1 mean corpuscular hemoglobin, RBC 29.4 pg [facility] 25.0 - 35.0 1 mean corpuscular volume, RBC 94.5 fL [facility] 75.0 - 100.0 1 hematocrit, blood 46.6 % [facility] 35.0 - 55.0 1 hemoglobin, blood 14.5 g/dL [facility] 11.5 - 16.5 1 erythrocyte count, whole blood 4.9 MILLION/UL [facility] 3.5 - 5.5 HISTORY OF MEDICATION USE Medication Status Instructions Dates Provider Indications Com ments clopidogrel 75 mg tablet active TAKE 1 TABLET BY MOUTH EVERY DAY Antonia Perry clopidogrel 75 mg tablet completed one tab by mouth daily - Lele Shepherd MD benzonatate 200 mg capsule completed Take 1 tablet once a day - Alfreda BAUTISTA XARELTO 2.5 MG ORAL TABLET completed one tab by mouth twice daily - Stephanie Alejandro aspirin 81 mg tablet,delayed release (DR/EC) active 1 tablet by mouth once a day Shanna Roland CLOPIDOGREL BISULFATE 75 MG ORAL TABLET completed 1 po q day - Shanna LOBO ASA/ RIVAROXABAN completed LTOLE ASA 100mg once daily and Rivaroxaban 2.5mg BID - Shanna Roland ASPIRIN ADULT LOW DOSE 81 MG ORAL TABLET DELAYED RELEASE completed One Tab By Mouth Daily - Shanna Roland levetiracetam 500 mg tablet active Take 1 by mouth twice a day Jovana Waters Aleve 220 mg capsule completed 2 capsule by mouth twice a day as needed - Alfreda BAUTISTA COMPASS PROTONIX VS PLACEBO completed - Shanna LOBO ASA/ RIVAROXABAN completed - Marcela Herman RN CILOSTAZOL 100 MG TABLET completed TAKE 1 TABLET BY MOUTH TWICE A DAY - Stephanie Alejandro ASPIRIN 100MG completed one tab daily - Marcela Herman RN atorvastatin 40 mg tablet active tablet by mouth once a day Jovana Waters amlodipine 5 mg tablet active 1 tablet by mouth once a day David Roy gemfibrozil 600 mg tablet active 1 tablet by mouth twice a day Lele Shepherd MD lisinopril-hydro chlorothiazide 10-12.5 mg tablet active 1 tablet by mouth once a day Lele Shepherd MD Fish Oil 120-180 mg capsule active 1 tablet by mouth once a day David Roy SOCIAL HISTORY Date Observation Value Provider drug use no Lele Soto alcohol use, average drinks per day 2 /d Lele Shepherd MD alcohol use, type beer Lele hazel MD alcohol use yes Lele Soto passive cigarette sm hemal exposure no Lele Shepherd MD chewing tobacco use Never Lele doyle MD number of years as a smoker 35 a Lele Shepherd MD smoking history, tot al pack/day 1 Lele Shepherd MD cigarette use yes Lele Shepherd MD smoking status Former smoker Lele delcid MD drug use no Lele Soto alcohol use, average drinks per day 2 /d Lele Shepherd MD alcohol use, type beer Lele hazel MD alcohol use yes Lele Soto passive cigarette sm hemal exposure no Lele Shepherd MD chewing tobacco use Never Lele doyle MD number of years as a smoker 35 a Lele Shepherd MD smoking history, tot al pack/day 1 Lele Shepherd MD cigarette use yes Lele Shepherd MD smoking status Former smoker Lele delcid MD social history reviewed E&M revi ewed - no changes required Lele Shepherd MD drug use no Alfreda Ventimig ladonna [facility] alcohol use, type beer Alfreda Theo timiglia [facility] alcohol use, average drinks per day 2 /d Alfreda Ventimiglia [facility] alcohol use yes Alfreda Ventimig ladonna [facility] passive cigarette sm hemal exposure no Angeline Liz chewing tobacco use Never Angeline Da vis number of years as a smoker 35 a Angeline Liz smoking history, tot al pack/day 1 Angelinemaximiliano Liz cigarette use yes Angelinemaximiliano Liz smoking status Former smoker Angeline Liz social history E&M Marital Statu s: C chuchoen: 2 O ccupation: retired Smoking History: P jv is a former smoker. Lele Shepherd MD social history reviewed E&M revi ewed - no changes required Lele Shepherd MD passive cigarette sm hemal exposure no Evonne Riaz chewing tobacco use Never Catherin e [place] number of years as a smoker 35 a Evonne Riaz smoking history, tot al pack/day 1 Evonne Riaz cigarette use yes Evonne [place] smoking status Former smoker Evonne Ot is social history E&M Marital Statu s: Elsy carr: 2 O ccupation: retired Smoking History: P atient is a former smoker. Lele Shepherd MD social history reviewed E&M revi ewed - no changes required Lele Shepherd MD passive cigarette sm hemal exposure no Stephanie Alejandro chewing tobacco use Never Stephanieboo Alejandro number of years as a smoker 35 a Stephanie Alejandro smoking history, tot al pack/day 1 Stephanie Javon cigarette use yes Stephanie Dameon anderson smoking status Former smoker Stephanie Sanders jane social history E&M Marital Statu s: Elsy carr: 2 O ccupation: retired Smoking History: P atient is a former smoker. Lele Shepherd MD social history reviewed E&M revi ewed - no changes required Lele Shepherd MD passive cigarette sm hemal exposure no Stephaine Alejandro chewing tobacco use Never Stephanie Javon number of years as a smoker 35 a Stephanie Alejandro smoking history, tot al pack/day 1 Stephanie Javon cigarette use yes Stephanie Dameon ll smoking status Former smoker Stephanie Sanders lara social history E&M Marital Statu s: Elsy carr: 2 O ccupation: retired Smoking History: P atient is a former smoker. Lele Shepherd MD social history reviewed E&M revi ewed - no changes required Lele Shepherd MD passive cigarette sm hemal exposure no Stephanie Alejandro chewing tobacco use Never Stephanie Alejandro number of years as a smoker 35 a Stephanie Alejandro smoking history, tot al pack/day 1 Stephanie Alejandro cigarette use yes Stephanie anderson smoking status Former smoker Stephanie lara social history reviewed E&M revi ewed - no changes required Lele Shepherd MD alcohol use no Jovana Gruenenfe lder passive cigarette sm hemal exposure no Jovana Gruenenfelder chewing tobacco use Never Jovana Gr uenenfelder number of years as a smoker 35 a Jovana Gruenenfelder smoking history, tot al pack/day 1 Jovana Gruenenfelder cigarette use yes Jovana Gruenenf elder smoking status Former smoker Jovana Karlane nfelder social history E&M Marital Statu s: Elsy rankinen: 2 O ccupation: retired Smoking History: P atient is a former smoker. Lele Shepherd MD social history reviewed E&M revi ewed - no changes required Lele Shepherd MD alcohol use no Petra Erika passive cigarette sm hemal exposure no Petra Erika chewing tobacco use Never Petra Vo ss number of years as a smoker 35 a Petra Erika smoking history, tot al pack/day 1 Petra Erika cigarette use yes Petra Erika smoking status Former smoker Petra Erika social history E&M Marital Statu s: Elsy carr: 2 O ccupation: retired Smoking History: P atient is a former smoker. Lele Shepherd MD social history reviewed E&M revi ewed - no changes required Lele Shepherd MD smoking status Former smoker Marce Galeana cigarette use yes Lele Shepherd MD alcohol use no Jovana Lino cierra smoking status Former smoker Lele delcid MD social history reviewed E&M revi ewed - no changes required Lele Shepherd MD alcohol use no David Clarke nson smoking/tobacco cess ation, patient education and counseling yes David Roy passive cigarette sm hemal exposure no David Roy chewing tobacco use Never Silvia Roy number of years as a smoker 35 a Davdi Roy cigarette use yes David arciniega smoking status Current every day smoker M Lisa Roy smoking/tobacco cess ation, patient education and counseling yes Lele Shepherd MD alcohol use no Lele Soto passive cigarette sm hemal exposure no Lele Shepherd MD chewing tobacco use Never Lele doyle MD social history E&M Marital Statu s: Elsy carr: 2 O ccupation: retired Lele Shepherd MD social history reviewed E&M revi ewed - no changes required Lele Shepherd MD number of years as a smoker 35 a David Roy smoking history, tot al pack/day 1 David Roy cigarette use yes David arciniega smoking status Current every day smoker M Lisa Roy FAMILY HISTORY Family Member Condition Mother Family History of CV A or Stroke: Father Family History of Co ngestive Heart Failure: INSURANCE PROVIDERS Payer name Policy type / Coverage type [place] [employer] democr[employer] ID [employer] MEDICARE ADVANTAGE HMO-POS HMO [id number] ADVANCE DIRECTIVES Name Date DISCUSSED - NO DECISION MADE TREATMENT PLAN Date Name Performer [id number],B, Lele Bruce farhana MENJIVAR [id number],S, Lele Bruce farhana MENJIVAR [id number],S, Lele Bruce farhana MENJIVAR [id number],S, Lele Bruce farhana MENJIVAR [id number],S, Lele Hidalgomarilou delcid MD [id number],S, Lele Bruce farhana MENJIVAR [id number],C,c ontinue asa, plavix an statin O rders: 9213 MOD 30-39min (CPT-08959) C omplete Echo (CPT-17905) C arotid Duplex Bilateral (CPT-71332) C RP, high sensitivity (74029) [facility] [id number],C,W ill get recent lipids from PCP H is updated medication list for this problem includes: Atorvastatin 20 Mg Tablet (Atorvastatin) ..... Tablet by mouth once a day Gemfibrozil 600 Mg Tablet (Gemfibrozil) ..... 1 tablet by mouth twice a day [facility] [id number],C,B lood pressure 149/85 today in office reports controlled at home running 120/60. Will continue present regimen and monitor. H is updated medication list for this problem includes: Amlodipine 5 Mg Tablet (Amlodipine) ..... 1 tablet by mouth once a day Lisinopril-hydrochlorothiazide 10-12.5 Mg Tablet (Lisinopril-hydrochlorothiazide) ..... 1 tablet by mouth once a day Aspirin 81 Mg Tablet,delayed Release (dr/ec) (Aspirin) ..... 1 tablet by mouth once a day [facility] [id number],C,H as known history of carotid disease and CVA. Last carotid duplex in 2020 showed 50-69% stenosis of the FABBY. Will update carotids and lipids. continue asa, plavix and statin O rders: 9213 MOD 30-39min (CPT-88465) C omplete Echo (CPT-63645) C arotid Duplex Bilateral (CPT-14066) C RP, high sensitivity (39692) Alfreda Ventimiglia [facility] [id number],S, Lele delcid MD [id number],S, Lele delcid MD [id number],S, Lele delcid MD [id number],S, Lele delcid MD [id number],B, Lele delcid MD [id number],B, Lele delcid MD Cardiology Lele Shepherd MD Cardiology Lele Shepherd MD Cardiology Lele Shepherd MD Cardiology:S/P stent s with no recurrance of claudication. Stents place 2020 S /P bilat carotid endarterectomy Lele Shepherd MD Cardiology Lele Shepherd MD Cardiology Lele Shepherd MD Cardiology Lele Shepherd MD Cardiology Lele Shepherd MD Cardiology Lele Shepherd MD Cardiology Lele Shepherd MD Cardiology Lele Shepherd MD Cardiology Lele Shepherd MD Cardiology Lele Shepherd MD Cardiology Lele Shepherd MD Cardiology Lele Shepherd MD Cardiology:continue asa, plavix an statin O rders: 9213 MOD 30-39min (CPT-55741) C omplete Echo (CPT-86673) C arotid Duplex Bilateral (CPT-85929) C RP, high sensitivity (98038) Alfreda Powers [facility] Cardiology:Will get recent lipids from PCP H is updated medication list for this problem includes: Atorvastatin 20 Mg Tablet (Atorvastatin) ..... Tablet by mouth once a day Gemfibrozil 600 Mg Tablet (Gemfibrozil) ..... 1 tablet by mouth twice a day Alfredaghassan Powers [facility] Cardiology:Blood pre ssure 149/85 today in office reports controlled at home running 120/60. Will continue present regimen and monitor. H is updated medication list for this problem includes: Amlodipine 5 Mg Tablet (Amlodipine) ..... 1 tablet by mouth once a day Lisinopril-hydrochlorothiazide 10-12.5 Mg Tablet (Lisinopril-hydrochlorothiazide) ..... 1 tablet by mouth once a day Aspirin 81 Mg Tablet,delayed Release (dr/ec) (Aspirin) ..... 1 tablet by mouth once a day Alfredaghassan Powers [facility] Cardiology:Has known history of carotid disease and CVA. Last carotid duplex in 2020 showed 50-69% stenosis of the FABBY. Will update carotids and lipids. continue asa, plavix and statin O rders: 42807 MOD 30-39min (CPT-64375) C omplete Echo (CPT-70016) C arotid Duplex Bilateral (CPT-35998) C RP, high sensitivity (38717) Alfreda Powers [facility] Cardiology Lele Shepherd MD Cardiology Lele Shepherd MD Cardiology Lele Shepherd MD Cardiology Lele Shepherd MD Cardiology Lele Shepherd MD Cardiology Lele Shepherd MD Cardiology followup Lele delcid MD Cardiology followup Lele delcid MD Cardiology followup Lele delcid MD Cardiology followup Lele delcid MD Cardiology followup Lele delcid MD Cardiology follow up Lele seth MD Cardiology follow up Lele seth MD Cardiology follow up Lele seth MD Cardiology follow up Lelemaritza seth MD Cardiology follow up Lele Taryn seth MD Cardiology follow up Lele Taryn seth MD Cardiology follow up Lele seth MD Cardiology follow up Lele Taryn seth MD Cardiology follow up Lele Taryn seth MD Cardiology follow up Lele Taryn steh MD Cardiology follow up [facility]le T[facility] follow up Lele seth MD Cardiology follow up Lele seth MD Cardiology follow up Lele seth MD Cardiology follow up Lele seth MD Cardiology follow up Lele seth MD Cardiology follow up Lele seth MD Cardiology Lelemaritza Shepherd MD Cardiology Lele Shepherd MD Cardiology Lelemaritza Shepherd MD Cardiology Lele Shepherd MD Cardiology Lelemaritza Shepherd MD Cardiology Lelemaritza Shepherd MD Cardiology Follow up Lele seth MD Cardiology Follow up Lele seth MD Cardiology Follow up Lele seth MD Cardiology Follow up Lele seth MD Cardiology Follow up Lele seth MD Cardiology Follow up Lele seth MD Cardiology Lele Shepherd MD Cardiology:AIF showe d single vessel to each foot with good collateralization. Start Pletal. Lele Shepherd MD Cardiology Lele Shepherd MD Cardiology Lele Shepherd MD Cardiology Lele Shepherd MD Cardiology Lele Shepherd MD Cardiology eLle Shepherd MD Cardiology Lele Shepherd MD Cardiology Lele Shepherd MD Cardiology Lele Shepherd MD Date Name CRP, high sensitivit y Carotid Duplex Bilat eral Complete Echo PROTHROMBIN TIME WIT H INR LIPID PANEL CBC (INCLUDES DIFF/P LT) BASIC METABOLIC PANE L W/EGFR Carotid Duplex Bilat eral Arterial Duplex Bi-L ower EX Carotid Duplex Bilat eral PROTHROMBIN TIME WIT H INR LIPID PANEL CBC (INCLUDES DIFF/P LT) BASIC METABOLIC PANE L W/EGFR AIF Intervention - G C AIF Diagnostic - GC Arterial Duplex Bi-L ower EX Carotid Duplex Bilat eral STR - Adenosine Complete Echo Carotid Duplex Bilat eral PROTHROMBIN TIME WIT H INR CBC (INCLUDES DIFF/P LT) BASIC METABOLIC PANE L W/EGFR Aortic Abdominal Ult rasound Arterial Duplex Bi-L ower EX HISTORY OF PROCEDURES Procedure Date Procedure Name Provider Procedure Notes S tatus EKG Lele Shepherd MD complete d EKG Lele Shepherd MD complete d EKG Lele Shepherd MD complete d EKG Lele Shepherd MD complete d Stress EKG Mal Amaro MD completed Regadenoson, 4 units Lele Shepherd MD completed Cardiolite, 2 units Lele Shepherd MD completed SPECT Images Angela Ramey MD completed EKG Lele Shepherd MD complete d SNOMED-CT: [id number] Current Medications Documented Lele Shepherd MD completed SNOMED-CT: 864240196 [id number] Current Medications Documented Lele Shepherd MD completed SNOMED-CT: [id number] Smoking Cessation Counseling Lele Shepherd MD completed EKG Lele Shepherd MD complete d SNOMED-CT: [id number] Current Medications Documented Lele Shepherd MD completed
--- OUTSIDE RECORDS SUMMARY | 2024-05-08 12:31 | XMS_ITS | Data Portability ---
Author Organization [place] - [facility] [employer], Main Office Address [address] [place] [address] Care Team Providers Care Book Solicitor Name Role Phone LYLE HICKMAN Primary Care Provider [phone] LYLE HICKMAN Referring Provider Assessment Encounter Date Assessment Date Assessment LastModified by Organization Details LastModified Time 07/13/2022 07/13/2022 Secondary preventive measures for vascular disease discussed smoking cessation highly recommended ENT referral for chronic hearing loss continue current therapy follow-up in 4 months. [email or web address] Not available 07/15/2022 18:35:47 11/09/2022 11/09/2022 Continue current therapy will follow-up in 4 months [email or web address] Not available 11/27/2022 22:43:25 03/15/2023 03/15/2023 Will continue current therapy follow-up in 4 months [email or web address] Not available 04/06/2023 08:43:43 Plan of Treatment Reminders Order Date Submit Date Provider Last Modified By Organization Details Last Modified Time Details Appointments None recorded. Lab PSA, serum or plasma 2022 023 [email or web address] Not available 09:55:01 CMP, serum or plasma 2022 023 [email or web address] Not available 12:41:31 lipid panel, serum 2022 023 [email or web address] Not available 12:41:48 Referral ENT surgery referral - Please call the patient to make an appt. Thank you 2022 023 cyahl Veronica Prieto MD, [address], [place], [address], 08:51:17 Procedures None recorded. Surgeries None recorded. Imaging MRI, internal auditory canal, w/wo contrast 2022 023 [facility], [address] [place] [address] , [place], [address], 17:46:51 Medication Orders None recorded. Patient TargetsNo targets recorded. Patient InstructionsNo instructions recorded. Reason for Referral ENT Surgery Referral for Hea ring loss Please call the patient to make an appt. Thank you Referring Physician: Lyle Hickman, Internal Medicine, Encounter Date: 07/13/2022 Results Created Date Observation Date Name Description Value Unit Range Abnormal Flag Note LastModifiedBy Organization Detail LastModifiedTime 07/29/1907/28/2022 COMPR EHENS FLAVIO METAB OLIC PANEL sodium 139 mmol/ L 137-14 5 Not Available [facility] (Lab) [address] [place], [address], 07/28/2022 12:41:43 07/29/19 23 07/28/2022 COMPR EHENS FLAVIO METAB OLIC PANEL potassium 4.3 mmol/ L 3.5-5. 1 Not Available [facility] (Lab) [address] [place], [address], 07/28/2022 12:41:43 07/29/19 23 07/28/2022 COMPR EHENS FLAVIO METAB OLIC PANEL chloride 106 mmol/ L 98-107 Not Available [facility] (Lab) [address] [place], [address], 07/28/2022 12:41:43 07/29/19 23 07/28/2022 COMPR EHENS FLAVIO METAB OLIC PANEL carbon dioxide 22 mmol/ L 22-30 Not Available [facility] (Lab) [address] [place], [address], 07/28/2022 12:41:43 07/29/19 23 07/28/2022 COMPR EHENS FLAVIO METAB OLIC PANEL anion gap 15.3 mmol/ L 14-22 Not Available [facility] (Lab) [address] [place], [address], 07/28/2022 12:41:43 07/29/19 23 07/28/2022 COMPR EHENS FLAVIO METAB OLIC PANEL glucose 100 mg/dL 70-99 high Not Available [facility] (Lab) [address] [place], [address], 07/28/2022 12:41:43 07/29/19 23 07/28/2022 COMPR EHENS FLAVIO METAB OLIC PANEL BUN 22 mg/dL 8-19 high Not Available [facility] (Lab) [address] [place], [address], 07/28/2022 12:41:43 07/29/19 23 07/28/2022 COMPR EHENS FLAVIO METAB OLIC PANEL creatinine 1.05 mg/dL 0.66-1 .25 Not Available [facility] (Lab) [address] [place], [address], 07/28/2022 12:41:43 07/29/1907/28/2022 COMPR EHENS FLAVIO METAB OLIC PANEL GFR >60 Refer ence Range : [place] ge GFR Healt hy Adult : >60 mL/mi n/1.7 3 m2 Chron ic Kidne y Disea se: 15-60 mL/mi n/1.7 3 m2 Kidne y Failu re: <15/m L/min /1.73 m2 www.n iddk. nih.g ov The MDRD study equat ion has not been valid ated in child gail <18 years of age; pregn ant women ; the elder ly >85 years of age; or in some racia l or ethni c subgr oups, such as Hispa nics. Outsi de the valid ated stephen eters , estim ated GFR is less accur ate, requi ring clini linden judgm ent on a case- by-ca se basis . Clini linden inter preta tion for other races and ages must be made by the clini veronica. The MDRD study equat ion has not been valid ated for the evalu ation of serum creat inine relat ed to nutri paula l statu s or medic ation usage . For perso ns <18 years of age, a pedia tric GFR calcu lator is avail able on the F websi te: https ://bonnie w.teresa cary.o rg/pr ofess ional s/kdo qi/gf r_cal culat or Not Available [facility] (Lab) [address] [place], [address], 07/28/2022 12:41:43 07/29/19 23 07/28/2022 COMPR EHENS FLAVIO METAB OLIC PANEL alkaline phosphatase 84 U/L 38-126 Not Available [facility] (Lab) [address] [place], [address], 07/28/2022 12:41:43 07/29/19 23 07/28/2022 COMPR EHENS FLAVIO METAB OLIC PANEL alanine aminotransfe rase 17 U/L 0-50 Not Available [facility] (Lab) [address] [place], [address], 07/28/2022 12:41:43 07/29/19 23 07/28/2022 COMPR EHENS FLAVIO METAB OLIC PANEL aspartate aminotransfe rase 22 U/L 15-46 Not Available [facility] (Lab) [address] [place], [address], 07/28/2022 12:41:43 07/29/19 23 07/28/2022 COMPR EHENS FLAVIO METAB OLIC PANEL bilirubin, total 0.30 mg/dL 0.20-1 .30 Not Available [facility] (Lab) [address] [place], [address], 07/28/2022 12:41:43 07/29/19 23 07/28/2022 COMPR EHENS FLAVIO METAB OLIC PANEL calcium 9.4 mg/dL 8.4-10 .2 Not Available [facility] (Lab) [address] [place], [address], 07/28/2022 12:41:43 07/29/19 23 07/28/2022 COMPR EHENS FLAVIO METAB OLIC PANEL total protein 6.7 g/dL 6.3-8. 2 Not Available [facility] (Lab) [address] [place], [address], 07/28/2022 12:41:43 07/29/19 23 07/28/2022 COMPR EHENS FLAVIO METAB OLIC PANEL albumin 4.1 g/dL 3.0-4. 4 Not Available [facility] (Lab) [address] [place], [address], 07/28/2022 12:41:43 07/29/19 23 07/28/2022 COMPR EHENS FLAVIO METAB OLIC PANEL globulin 2.6 g/dL 2.6-4. 2 Not Available [facility] (Lab) [address] [place], [address], 07/28/2022 12:41:43 07/29/1907/28/2022 COMPR EHENS FLAVIO METAB OLIC PANEL A/G ratio 1.6 ratio 1.0-2. 0 Not Available [facility] (Lab) [address] [place], [address], 07/28/2022 12:41:43 07/29/1907/28/2022 LIPID PANEL cholesterol 171 mg/dL 140-19 9 NIH MAGGIE NSUS RECOM MENDA TION FOR NORBERTO STERO L: ADULT CHILD LOW RISK: <200 <170 BORDE RLINE : <200- 239 ----- HIGH RISK: >240 >200 Not Available [facility] (Lab) [address] [place], [address], 07/28/2022 12:41:48 07/29/1907/28/2022 LIPID PANEL triglyceride s 107 mg/dL 0-150 NIH MAGGIE NSUS REPOR T RECOM MENDA TION FOR TRIGL YCERI KIMBERLI: ADULT CHILD LOW RISK: <150 ----- BODER LINE: 150-1 99 ----- HIGH RISK: >200 ----- Not Available [facility] (Lab) [address] [place], [address], 07/28/2022 12:41:48 07/29/1907/28/2022 LIPID PANEL HDL cholesterol 57 mg/dL 40- Not Available [facility] (Lab) [address] [place], [address], 07/28/2022 12:41:48 07/29/1907/28/2022 LIPID PANEL LDL cholesterol, calculated 93 mg/dL 0-130 NIH MAGGIE NSUS REPOR T RECOM MENDA TIONS FOR LDL: ADULT CHILD LOW RISK <130 <110 (OPTI MAL LDL) <100 ----- BORDE RLINE : 130-1 59 ----- HIGH RISK: >160 >130 A TRIGL YCERI DE RESUL T >400 INVAL IDATE S THE CALCU LATIO N FOR LDL FRACT IONAT ION - THE LDL RESUL T WILL NOT BE REPOR DAIJA. Not Available [facility] (Lab) [address] [place], [address], 07/28/2022 12:41:48 07/29/1907/28/2022 PSA SCREE N PSA medicare screen 0.62 NG/mL 0.00-4 .00 Not Available [facility] (Lab) [address] [place], [address], 07/28/2022 13:16:57 09/13/1909/12/2022 CREAT ININE , I-STA T creatinine 1.2 mg/dL 0.6-1. 3 Perfo rmed at: Teddy dsvil le [facility] [address] Teddy dsvil [facility] [address] Not Available [facility] (Lab) [address] [place], [address], 09/14/2022 11:53:27 09/13/19 23 MRI, inter nal audit ory canal , w/wo contr ast [facility] [address], [place] [address] Patien t Name: LEW HATHAWAY Access ion #: [id number] Sex: M : 1950 3 Dictat ed By: Nader madrid Attend ing Physic ashlee: VERONICA FUNG Orderi ng Physic ashlee: GILLIAN MARTIN Exam Date: 2022 10:38 AM Exam Name: MRI IACS W/WO Admitt ing Diagno sis(es ): CLINIC AL INFORM ATION: Bilate ral hearin g loss, left greate r than right. TECHNI QUE: Multis equenc e multip lanar MRI images of the IACs were obtain ed prior to and after the uneven tful admini strati on of 15 mL MultiH ance contra st. Sagitt al T1 and axial T2 precon trast images of the entire brain were also obtain ed. COMPAR ZAIN: None. 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 No mass or abnorm al enhanc ement identi fied within or adjace nt to the IACs bilate rally. 7th and 8th crania l nerves are unrema rkable along their visual ized course s. The rest of the visual ized crania l nerves also appear unrema rkable . IMPRES SHAY: 1. Unrema rkable IACs. No mass or abnorm al postco ntrast enhanc ement identi fied within or adjace nt to the PACs. 2. 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 Electr onical ly Signed by: Nader madrid at 2022 16:44: 40 PM [address] (Imaging) [address], [place], [address], 09/15/2022 14:56:12 09/14/19 MRI, inter nal audit ory canal , w/wo contr ast No observ ation record ed. [address] [facility] [address] [place] [address] , [place], [address], 09/13/2022 10:11:01 09/19/19 MRI, inter nal audit ory canal , w/wo contr ast No observ ation record ed. [address] [facility] [address] [place] [address] , [place], [address], 09/18/2022 15:57:21 12/20/1912/19/2022 US, echoc ardio gram No observ ation record ed. [facility] [address], [place], [address], 02/05/2023 08:58:53 12/20/1912/19/2022 US, jose g x, carot id arter y No observ ation record ed. [facility] [address], [place], [address], 02/05/2023 08:59:06 02/29/20 23 02/28/2023 CT, brain , w/o contr ast No observ ation record ed. [address] [address], [place], [address], 03/09/2023 08:37:05 02/29/20 23 02/28/2023 CT, cervi linden spine , w/o contr ast No observ ation record ed. [address], [place], [address], 03/09/2023 08:37:15 02/29/20 23 02/28/2023 XR, knee No observ ation record ed. [address], [place], [address], 03/09/2023 08:37:23 02/29/20 23 02/28/2023 XR, elbow No observ ation record ed. [facility] [address], [place], [address], 03/09/2023 08:37:32 02/29/20 23 02/28/2023 XR, elbow No observ ation record ed. [facility] [address], [place], [address], 03/09/2023 08:37:47 10/08/19 24 10/08/2023 DEXA, axial skele ton [facility] [address] [place] [address] Patien t Name: LEW HATHAWAY Access ion #: [id number] Sex: M : 1950 0 Dictat ed By: Betsy Tracey Attend ing Physic ashlee: NADER HICKMAN [facility] Physic ashlee: NADER HICKMAN Exam Date: 2023 10:50 AM Exam Name: XR DEXA-H IPS PELVIS SPINE Admitt ing Diagno sis(es ): INDICA TION: 73 years old, Male; [facility]. Osteop orosis screen ing, being treate d for osteop orosis . DEXA SCAN: BONE DENSIT Y REPORT : AP SPINE (L1-L4 ) : T Score: 2.6 LEFT HIP TOTAL : T Score: -1.9 RT HIP TOTAL : T Score: -2.1 TOTAL BILAT HIP AVG: T Score: -2.0 10 YEAR FRACTU RE RISK* Not provid ed IMPRES SHAY: 1. 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 2. Normal bone minera l densit y of the lumbar spine. ------ ------ ------ ------ ------ ------ ------ ------ ----- *FRAX versio n 3.08. Fractu re probab ility calcul ated for an untrea daija patien t. Fractu re probab ility may be lower if the patien t has receiv ed treatm ent. T-scor e: compar zain by zulay centeno ion (SD) to a young adult popula tion, matche d for sex and ethnic ity (used for postme nopaus al women and men >50 Page 1 [facility] [address] [place] [address] Patien t Name: LEW HATHAWAY Access ion #: [id number] Sex: M : 1950 0 Dictat ed By: Betsy Tracey Attend ing Physic ashlee: STEPAN [place] Physic ashlee: NADER HICKMAN Exam Date: 2023 10:50 AM Exam Name: XR DEXA-H IPS PELVIS SPINE Admitt ing Diagno sis(es ): years) and classi fied by WHO criter ia. -1.0: normal <-1.0 to >-2 .5: osteop enia -2.5: osteop orosis -2.5 plus fragil ity fractu re: severe osteop orosis Z-scor e: compar ed by SD to an age, sex, and ethnic ity popula tion (used for premen opausa l women, men <50 years, and childr en instea d of T-scor e WHO criter ia 4) <-2.0: below expect ed range/ low bone densit y for age, and a cause should be sought Electr onical ly Signed by: Betsy Tracey at 2023 12:41: 05 PM Page 2 [facility] (Imaging) [address] [place], [address], 11/15/2023 15:20:41 Result Notes None recorded. Problems Name Problem SNOMED Code Status Onset Date Resolution Date Notes Provider Name and Address Organization Details Recorded Time Hearing loss 40724337 Active 2022 Not Available [facility] 3 09:27:21 Asymmetrical sensorineural hearing loss 687358446 Active 2022 Not Available [facility] 3 09:27:21 Metatarsalgia 51487705 Active 2020 Not Available [facility] 3 09:27:21 Tobacco user 698912135 Active Not Available [facility] 3 09:27:21 Chronic back pain 971022843 Active Not Available [facility] 3 09:27:21 Hypercholeste rolemia 38706352 Active 2017 Not Available [facility] 3 09:27:21 Cataract 737686033 Active 2021 Not Available [facility] 3 09:27:21 Foot callus 407721202 Active 2020 Not Available [facility] 3 09:27:21 Pneumonia 728861013 Active 2017 Not Available [facility] 3 09:27:21 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 2020 Not Available [facility] 3 09:27:21 Symptom of skin and integumentary tissue 342834121 Active Not Available [facility] 3 09:27:21 Low back pain 192873686 Active Not Available [facility] 3 09:27:21 Dyslipidemia 635377644 Active Not Available [facility] 3 09:27:21 Arthritis 8799839 Active 2017 Not Available [facility] 3 09:27:21 Eosinophil count above reference range 876234578 Active Not Available [facility] 3 09:27:21 Peripheral arterial occlusive disease 724327543 Active Not Available [facility] 3 09:27:21 Porokeratosis 755152983 Active 2017 Not Available [facility] 3 09:27:21 Carotid artery doppler abnormal 329926941 Active Not Available [facility] 3 09:27:21 Numbness 09789959 Active Not Available [facility] 3 09:27:21 Essential hypertension 97091209 Active 2016 Not Available [facility] 3 09:27:21 Carotid artery stenosis 43952793 Active Not Available [facility] 3 09:27:21 Otitis media 93759686 Active Not Available [facility] 3 09:27:21 Pain in limb 00827085 Active Not Available [facility] 3 09:27:21 Fissure in skin 81347606 Active 2020 Not Available [facility] 3 09:27:21 Notes:back/neck problems, ca rotid blockage, concussion or spinal trauma, eye problems, stroke, use of blood thinners, balance problems, numbness or tingling, muscle pain, swollen or painful joints, sneezing/runny nose, wear glasses/contacts, vision problems, difficulty hearing, wear a hearing aid Problem Notes None recorded. Procedures Surgical History Date Name Laterality Status Provider Name and Address Organization Details Recorded Time 10/28/19 21 Colonoscopy with biopsy completed Not Available [facility] 05/03/2022 04:42:34 04/02/19 19 Cardiac Stent Placement completed Not Available [facility] 05/03/2022 04:42:34 11/24/19 06 Colonoscopy completed Not Available [facility] 05/03/2022 04:42:34 Knee Surgery completed Not Available [facility] 05/03/2022 04:42:34 Back Surgery completed Not Available [facility] 05/03/2022 04:42:34 Cardiac Stent Placement completed Not Available [facility] 05/03/2022 04:42:34 Carotid Endarterectomy completed Not Available [facility] 05/03/2022 04:42:34 Knee Surgery completed Not Available [facility] 05/03/2022 04:42:34 Cataract Surgery completed Not Available [facility] 05/03/2022 04:42:34 Removal of adenoids completed Usha Rodas RN [place] - [place] [employer] [facility] 08/25/2022 11:12:15 Imaging Results Imaging Date Name Status LastModified by Organization Details LastModified Time 09/12/2022 MRI, internal auditory canal, w/wo contrast completed [email or web address] [facility] (Imaging) [address] [place], [address], 09/15/2022 14:56:12 09/13/2022 MRI, internal auditory canal, w/wo contrast completed [email or web address] [facility] [address] [place] [address] , [place], [address], 09/13/2022 10:11:01 09/18/2022 MRI, internal auditory canal, w/wo contrast completed [email or web address] [facility] [address] [place] [address] , [place], [address], 09/18/2022 15:57:21 12/19/2022 US, echocardiogram completed [facility] [address], [place], [address], 02/05/2023 08:58:53 12/19/2022 US, duplex, carotid artery completed [facility] [address], [place], [address], 02/05/2023 08:59:06 02/28/2023 CT, brain, w/o contrast completed [address], [address], 03/09/2023 08:37:05 02/28/2023 CT, cervical spine, w/o contrast completed [address], [address], 03/09/2023 08:37:15 02/28/2023 XR, knee completed [address], [address], 03/09/2023 08:37:23 02/28/2023 XR, elbow completed [address], [address], 03/09/2023 08:37:32 02/28/2023 XR, elbow completed [address], [address], 03/09/2023 08:37:47 10/08/2023 DEXA, axial skeleton completed [email or web address] [facility] (Imaging) [address] [place], [address], 11/15/2023 15:20:41 Procedure Notes None recorded. Medical Equipment None Reported. Allergies No known drug allergies Medications Name Sig Start Date Stop Date Status Note LastModified by Organization Details LastModified Time amoxicillin 500 mg capsule Take 1 capsule 3 times a day by oral route for 10 days. 10/01 completed Not Available Not Available Not Available atorvastati n 40 mg tablet TAKE 1 TABLET BY MOUTH EVERY DAY active Not Available Not Available No t Available cilostazol 100 mg tablet TAKE 1 TABLET BY MOUTH TWICE A DAY active Not Available Not Available No t Available promethazin e-DM 6.25 mg-15 mg/5 mL oral syrup TK 5 ML PO Q 4 TO 6 H PRF COUGH OR NAUSEA 02/11 completed Not Available Not Available Not Available atorvastati n 20 mg tablet TAKE ONE TABLET DAILY 03/08 completed Not Available Not Available Not Available ammonium lactate 12 % lotion Apply 2 applicati ons every day by topical route as needed. active Not Available Not Available No t Available azithromyci n 250 mg tablet TAKE 2 PILLS ON DAY 1, THEN TAKE 1 PILL ON DAYS 2-5 07/13 completed Not Available Not Available Not Available aspirin 325 mg tablet Take 1 tablet every day by oral route. 08/01 completed Not Available Not Available Not Available ofloxacin 0.3 % eye drops INSTILL 1 DROP INTO THE SURGICAL EYE 3 TIMES DAILY BEGINNING 2 DAYS PRIOR TO SURGERY 03/16 completed Not Available Not Available Not Available benzonatate 200 mg capsule TK 1 C PO Q NIGHT 02/11 completed Not Available Not Available Not Available levetiracet am 500 mg tablet TAKE 1 TABLET BY MOUTH TWICE A DAY active Not Available Not Available No t Available cephalexin 250 mg capsule 12/17 completed Not Available Not Available Not Available felodipine ER 5 mg tablet,exte nded release 24 hr TAKE ONE TABLET DAILY active Not Available Not Available No t Available clopidogrel 75 mg tablet TAKE 1 TABLET BY MOUTH EVERY DAY active Not Available Not Available No t Available amlodipine 5 mg tablet TAKE 1 TABLET BY MOUTH EVERY DAY 03/16 completed Not Available Not Available Not Available ciprofloxac in 500 mg tablet 10/01 completed Not Available Not Available Not Available amoxicillin 500 mg tablet Take 1 tablet 3 times a day by oral route for 7 days. 10/01 completed Not Available Not Available Not Available ketorolac 0.5 % eye drops INSTILL 1 DROP INTO THE SURGICAL EYE 4 TIMES DAILY BEGINNING 2 DAYS PRIOR TO SURGERY 03/16 completed Not Available Not Available Not Available Celebrex 200 mg capsule Take 1 capsule every day by oral route. 12/02 completed Not Available Not Available Not Available terbinafine HCl 250 mg tablet Take 1 tablet every day by oral route. 12/18 completed Not Available Not Available Not Available prednisolon e acetate 1 % eye drops,suspe nsion INSTILL 1 DROP INTO THE SURGICAL EYE 3 TIMES DAILY BEGINNING AFTER SURGERY 03/16 completed Not Available Not Available Not Available amlodipine 10 mg tablet TAKE 1/2 TABLET BY MOUTH DAILY active Not Available Not Available No t Available gemfibrozil 600 mg tablet TAKE 1 TABLET BY MOUTH TWICE A DAY active Not Available Not Available No t Available erythromyci n 5 mg/gram (0.5 %) eye ointment 02/11 completed Not Available Not Available Not Available polymyxin B sulfate 10,000 unit-trimet hoprim 1 mg/mL eye drops INSTILL 1 DROP IN EACH EYE EVERY 3-4 HOURS WHILE AWAKE FOR 7 DAYS 07/13 completed Not Available Not Available Not Available indomethaci n 50 mg capsule TAKE 1 CAPSULE BY MOUTH EVERY 8 HOURS. DO NOT COMBINE WITH ANY OTHER NSAIDS active Not Available Not Available No t Available Aspir-81 mg tablet,tristen yed release Take 1 tablet every day by oral route. 2016 active Not Available Not Available Not Avai lable lisinopril 10 mg-hydrochl orothiazide 12.5 mg tablet TAKE 1 TABLET BY MOUTH EVERY DAY 2022 active Not Available Not Available Not Avai lable methylpredn isolone 4 mg tablets in a dose pack TAKE 6 TABLETS ON DAY 1 DIRECTED ON PACKAGE AND DECREASE BY 1 TAB EACH DAY FOR A TOTAL OF 6 DAYS 07/13 completed Not Available Not Available Not Available cefdinir 300 mg capsule Take 1 capsule twice a day by oral route for 7 days. active Not Available Not Available No t Available amoxicillin 875 mg-potassiu m clavulanate 125 mg tablet active Not Available Not Available Not Available tobramycin 0.3 %-dexametha sone 0.1 % eye drops,suspe nsion USE 3 DROPS IN LEFT EAR THREE TIMES DAILY FOR 1 WEEK active Not Available Not Available No t Available neomycin-po lymyxin-hyd rocort 3.5 mg-10,000 unit/mL-1 % ear drops,susp SHAKE LQ AND INT 4 GTS IN AD TID FOR 7 DAYS 10/01 completed Not Available Not Available Not Available Pneumovax-2 3 25 mcg/0.5 mL injection syringe active Not Available Not Available Not Available Zostavax (PF) 19,400 unit/0.65 mL subcutaneou s suspension active Not Available Not Available N ot Available Fish Oil 1,000 mg capsule 3 daily 2012 active Not Available Not Available Not Avai lable Prevnar 13 (PF) 0.5 mL intramuscul ar syringe active Not Available Not Available N ot Available Brilinta 90 mg tablet TAKE 1 TABLET BY MOUTH TWICE A DAY 12/02 completed Not Available Not Available Not Available Fluvirin 3568-4610 45 mcg (15 mcg x 3)/0.5 mL intramuscul ar suspension active Not Available Not Available N ot Available Fluzone Quad 2347-0176 60 mcg (15 mcg x 4)/0.5 mL IM suspension active Not Available Not Available N ot Available Fluvirin 5259-8686 45 mcg (15 mcg x 3)/0.5 mL intramuscul ar suspension active Not Available Not Available N ot Available Fluzone Quad 9621-9489 60 mcg (15 mcg x 4)/0.5 mL IM suspension 04/04 completed Not Available Not Available Not Available Fluzone Quad 1903-3042 60 mcg (15 mcg x 4)/0.5 mL IM suspension 03/27 completed Not Available Not Available Not Available Fluzone High-Dose 6929-0337 (PF) 180 mcg/0.5 mL intramuscul ar syringe 11/27 completed Not Available Not Available Not Available Xarelto 2.5 mg tablet TAKE ONE TABLET TWICE DAILY 03/23 completed Not Available Not Available Not Available Fluzone High-Dose (PF) 180 mcg/0.5 mL intramuscul ar syringe active Not Available Not Available N ot Available Fluzone High-Dose Quad 2020-21 (PF) 240 mcg/0.7 mL IM syringe active Not Available Not Available N ot Available Vitals Date Recorded Body mass index (BMI) Body height Heart rate Body temperature Body weight Systolic blood pressure Diastolic blood pressure Provider Name and Address Organization Details Last Updated DateTime 3 26.1 kg/m2 171.45 cm 71 /min 98.5 [degF] 56930.1 1 g 136 mm[Hg] 72 mm[Hg] Not Available [facility] 3 04:43:20 Date Recorded Body height Body weight Body temperature Heart rate Oxygen saturation Oxygen saturation in Arterial blood by Pulse oximetry Systolic blood pressure Diastolic blood pressure Provider Name and Address Organization Details Last Updated DateTime 3 171.45 cm 47013.7 g 96.9 [degF] 69 /min 97 % 97 % 124 mm[Hg] 78 mm[Hg] Cathy Moise RN [place] [employer] 3 11:28:25 Date Recorded Body height Body mass index (BMI) Body weight Body temperature Provider Name and Address Organization Details Last Updated DateTime 08/29/2022 171.45 cm 26.1 kg/m2 36133.11 g 97.6 [degF] Shanna Frances CMA [employer] 08/29/2022 12:04:43 Date Recorded Body height Body mass index (BMI) Body weight Body temperature Heart rate Systolic blood pressure Diastolic blood pressure Provider Name and Address Organization Details Last Updated DateTime 3 171.45 cm 25.6 kg/m2 11330.3 3 g 97.4 [degF] 74 /min 130 mm[Hg] 78 mm[Hg] DARINEL Evangelista [employer] 3 11:43:42 Date Recorded Body height Body mass index (BMI) Body weight Body temperature Heart rate Systolic blood pressure Diastolic blood pressure Provider Name and Address Organization Details Last Updated DateTime 4 171.45 cm 25.5 kg/m2 38963.7 4 g 97.7 [degF] 81 /min 118 mm[Hg] 88 mm[Hg] DARINEL Evangelista [employer] 4 10:54:29 Social History Question Answer Notes LastModified by Organization Details LastModified Time Tobacco Smoking Status Current Every Day Smoker Usha Rodas RN [facility], [place] - [facility] 08/25/2022 11:12:01 Do You Have An Advance Directive? No MIGRATION.030 [id number] Information not available 05/03/2022 What Is Your Level Of Alcohol Consumption? Moderate MIGRATION.030 008640 Information not available 05/03/2022 Are You Blind Or Do You Have Difficulty Seeing? No MIGRATION.030 443753 Information not available 05/03/2022 What Is Your Level Of Caffeine Consumption? None MIGRATION.030 829893 Information not available 05/03/2022 How Much Tobacco Do You Chew? None MIGRATION.030 758895 Information not available 05/03/2022 In The 14 Days Before Symptom Onset, Have You Had Close Contact With A Laboratory-confi rmed COVID-19 While That Case Was Ill? No MIGRATION.030 [id number] Information not available 05/03/2022 In The 14 Days Before Symptom Onset, Have You Had Close Contact With A Person Who Is Under Investigation For COVID-19 While That Person Was Ill? No MIGRATION.030 579719 Information not available 05/03/2022 Are You Currently Employed? Yes [email or web address] Information not available 07/13/2022 Are You Deaf Or Do You Have Serious Difficulty Hearing? Yes Hearing Aids MIGRATION.030 091721 Information not available 05/03/2022 What Type Of Diet Are You Following? REGULAR MIGRATION.030 823937 Information not available 05/03/2022 Which Illicit Or Recreational Drugs Have You Used? None MIGRATION.030 761027 Information not available 05/03/2022 Do You Or Have You Ever Used E-cigarettes Or Vape? Current User Of Electronic Cigarettes Vape MIGRATION.030 839774 Information not available 05/03/2022 What Is The Highest Grade Or Level Of School You Have Completed Or The Highest Degree You Have Received? 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 No MIGRATION.030 017760 Information not available 05/03/2022 What Is The Fluoride Status Of Your Home? Unknown MIGRATION.0301 008575 Information not available 05/03/2022 Are There Any Guns Present In Your Home? Yes MIGRATION.0301 [id number] Information not available 05/03/2022 Do You Use Insect Repellent Routinely? No MIGRATION.0301 996451 Information not available 05/03/2022 Where Do You Live? SingleLevelHouse MIGRATION.0301 [id number] Information not available 05/03/2022 Do You Have A Medical Power Of Motor Checker? No MIGRATION.0301 [id number] Information not available 05/03/2022 What Was The Date Of Your Most Recent Tobacco Screening? 03/15/2023 [email or web address] Information not available 03/15/2023 Have You Ever Been Counseled For Unhealthy Alcohol Use? No MIGRATION.0301 006415 Information not available 05/03/2022 Do You Have Any Pets? Yes MIGRATION.0301 [id number] Information not available 05/03/2022 What Is Your Relationship Status? MIGRATION.0301 818586 Information not available 05/03/2022 Do You Use Your Seat Belt Or Car Seat Routinely? Yes MIGRATION.0301 851677 Information not available 05/03/2022 Do You Have Smoke And Carbon Monoxide Detectors In Your Home? Yes MIGRATION.0301 766343 Information not available 05/03/2022 Are You Passively Exposed To Smoke? Yes MIGRATION.0301 769238 Information not available 05/03/2022 Do You Or Have You Ever Used Smokeless Tobacco? Never Used Smokeless Tobacco MIGRATION.0301 [id number] Information not available 05/03/2022 Are There Any Smokers In Your House? No MIGRATION.0301 209921 Information not available 05/03/2022 What Types Of Sporting Activities Do You Participate In? None MIGRATION.0301 124970 Information not available 05/03/2022 Do You Feel Stressed (tense, Restless, Nervous, Or Anxious, Or Unable To Sleep At Night)? [id number] MIGRATION.0301 172639 Information not available 05/03/2022 Do You Use Any Illicit Or Recreational Drugs? No MIGRATION.0301 667465 Information not available 05/03/2022 Do You Use Sunscreen Routinely? No MIGRATION.0301 028999 Information not available 05/03/2022 Has Tobacco Cessation Counseling Been Provided? No MIGRATION.0301 003631 Information not available 05/03/2022 Have You Recently Traveled Abroad? No MIGRATION.0301 641483 Information not available 05/03/2022 Do You Have Any Dietary Restrictions? No MIGRATION.0301 574242 Information not available 05/03/2022 Do You Or Have You Ever Used Any Other Forms Of Tobacco Or Nicotine? Yes MIGRATION.0301 734311 Information not available 05/03/2022 Sex: Male Functional Status Question Answer Note LastModified by [employer] Details LastModified Time Do you have difficulty walking or climbing stairs? Yes MIGRATION.[id number] 026 Information not available 05/03/2022 Do you have transportation difficulties? No MIGRATION.5829179 026 Information not available 05/03/2022 Are you able to walk? YESWOREST MIGRATION.1208498 026 Information not available 05/03/2022 Do you have difficulty doing errands alone? No MIGRATION.8043504 026 Information not available 05/03/2022 Are you able to care for yourself? Yes MIGRATION.[id number] 026 Information not available 05/03/2022 Do you have difficulty dressing or bathing? No MIGRATION.5715941 026 Information not available 05/03/2022 What is your exercise level? None MIGRATION.9473698 026 Information not available 05/03/2022 Mental Status Question Answer Note LastModified by [employer] Details LastModified Time Do you have difficulty concentrating, remembering or making decisions? No MIGRATION.[id number] Information not available 05/03/2022 Family History Relationship Description Onset Age of this Age Resolved Age Notes LastModified by Organization Details LastModified Time Father Heart failure MIGRATION.652 [id number] Not available 05/03/2022 04:42:35 Father Malignant neoplastic disease MIGRATION.701 [id number] Not available 05/03/2022 04:42:35 Mother Cerebrovascu lar accident MIGRATION.058 [id number] Not available 05/03/2022 04:42:35 Notes:NO ENT Medical History Condition Response NERVE DISEASE N BLINDNESS N RHEUMATIC FEVER N KIDNEY STONES N BLADDER PROBLEMS N MRSA N OTHER # 1 N POLIO N LUNG DISEASE/DISORDER N RADIATION / CHEMOTHERAPY N COPD N Other # 2 N BLOOD DISEASES N EAR OR HEARING PROBLEMS N MUMPS N BOWEL PROBLEMS N DEPRESSION (INCLUDING POST ) N STROKE/TIA Y ULCERS N BENIGN PROSTATIC HYPERPLASIA N MEASLES N MYOCARDIAL INFARCTION N OBESITY N GERD/NAUSEA N ANEURYSM N URINARY/BLADDER/KIDNEY PROBLEMS N CORONARY ARTERY DISEASE (CAD) Y ADDICTION CONCERNS N ENDOMETRIOSIS N Impotence N USE OF BLOOD THINNERS N SKIN PROBLEMS N GASTROINTESTINAL DISORDER N PERIPHERAL VASCULAR DISEASE Y MUSCLE,JOINT OR BONE PROBLEMS N GASTROINTESTINAL BLEEDING N BLOOD CLOTS N ASTHMA N CATARACTS N ERECTILE DYSFUNCTION N VARICOSITIES N GI PROBLEMS N Low Testosterone N INFERTILITY N AIDS/HIV N CHEMOTHERAPY / RADIATION N LIVER DISEASE N MALE HYPOGONADISM N HYPERTENSION Y Deficiency N TOURETTE'S N ANXIETY DISORDER N BLOOD TRANSFUSION N ANEMIA/BLOOD DISORDER N CHRONIC EAR INFECTIONS N BRONCHITIS N TUBERCULOSIS N GLAUCOMA N FOOT PROBLEM N DIVERTICULITIS N SLEEP APNEA N CHICKENPOX N INFECTIOUS DISEASE N HEART ARRHYTHMIA N PROSTATE N INSOMNIA N HIGH CHOLESTEROL / HYPERLIPIDEMIA Y HYPERTHYROIDISM N EYE PROBLEMS N EDEMA N CHRONIC PAIN SYNDROME N HYPOTHYROIDISM N CAROTID BLOCKAGE Y CONSTIPATION N BACK / NECK PROBLEMS Y HAVE YOU BEEN HOSPITALIZED OR SEEN IN [facility] IN THE PAST YEAR ? N ATHEROSCLEROSIS N BREAST PROBLEMS N DIALYSIS N ECZEMA N OSTEOPOROSIS N ARTHRITIS N APPENDICITIS N DIABETES, TYPE N BAD TEETH N ENT N HEARTBURN / REFLUX N AUTISM SPECTRUM DISORDER (ASD) N HEPATITIS / LIVER DISEASE N GOUT N SLEEP DISORDER N ALZHEIMER'S DISEASE N Brain Problems N HERPES N DEMENTIA N HEADACHES/MIGRAINES N SEIZURES/EPILEPSY N VASCULAR DISEASE N PACEMAKER N Blood Disorder N DIZZINESS N HEART DISEASE/HEART PROBLEMS N KIDNEY DISEASE N MULTIPLE SCLEROSIS N CARDIAC ARRHYTHMIA N CANCER: SPECIFY N ATRIAL FIBRILLATION N Gall Stones N PULMONARY EMBOLISM N AUTOIMMUNE DISEASE N Immunizations Vaccine Type Date Status Note Provider Nam e and Address Organization Details Recorded Time SARS-COV-2 (COVID-19) vaccine, UNSPECIFIED 3 completed DARINEL King, [facility] [employer] 10/23/2022 10:09:13 influenza, unspecified formulation 3 completed DARINEL King [employer] [facility] [employer] 10/23/2022 10:09:27 Respiratory syncytial virus (RSV) MAB, unspecified 3 completed DARINEL King, [facility] [employer] [facility] 02/08/2023 09:29:08 SARS-COV-2 (COVID-19) vaccine, UNSPECIFIED 3 completed DARINEL King [facility] 02/08/2023 09:29:17 zoster, unspecified formulation 3 completed DARINEL King, [facility] 02/08/2023 09:29:27 COVID-19, mRNA, LNP-S, PF, 30 mcg/0.3 mL dose 1 completed Not Available [facility] 09/25/2022 02:31:00 COVID-19, mRNA, LNP-S, PF, 30 mcg/0.3 mL dose 1 completed Not Available [facility] 09/25/2022 02:31:00 COVID-19, mRNA, LNP-S, PF, 30 mcg/0.3 mL dose 1 completed Not Available [facility] 09/25/2022 02:31:00 Influenza, high-dose, quadrivalent, PF 0 completed Not Available [facility] 09/25/2022 02:31:00 pneumococcal polysaccharide PPV23 0 completed Not Available [facility] 09/25/2022 02:31:00 Influenza, high-dose, trivalent, PF 9 completed Not Available [facility] 09/25/2022 02:31:00 Pneumococcal conjugate PCV 13 9 completed Not Available [facility] 09/25/2022 02:31:00 influenza, unspecified formulation 8 completed Not Available [facility] 09/25/2022 02:31:00 Influenza, split virus, quadrivalent, preservative 7 completed Not Available [facility] 09/25/2022 02:31:00 Influenza, high-dose, trivalent, PF 2 completed Not Available [facility] 09/25/2022 02:31:00 pneumococcal polysaccharide PPV23 2 completed Not Available [facility] 09/25/2022 02:31:00 COVID-19, mRNA, LNP-S, PF, 30 mcg/0.3 mL dose 2 completed Not Available [facility] 09/25/2022 02:31:00 COVID-19, mRNA, LNP-S, PF, 30 mcg/0.3 mL dose 2 completed Not Available [facility] 09/25/2022 02:31:00 Influenza, high-dose, trivalent, PF 1 completed Not Available [facility] 09/25/2022 02:31:00 Influenza, split virus, trivalent, preservative 6 completed Not Available [facility] 09/25/2022 02:31:00 zoster live 6 completed Not Available [facility] 09/25/2022 02:31:00 influenza, unspecified formulation 4 completed Not Available [facility] 09/25/2022 02:31:00 Past Encounters Encounter ID Performer Location Encounter Start Date Encounter Closed Date Diagnosis/Indication Diagnosis SNOMED-CT Code Diagnosis ICD10 Code Diagnosis Note [id number] [facility] [place], [place] [address] 07/20/2020 00:00:00 07/20/2020 22:35:11 [id number] [facility] [place] [address] [place] [address], [address] [address] 10/07/2020 00:00:00 10/19/2020 10:35:07 [id number] [facility] [place] [address] [place] [address] Rd, [address] [address] 10/14/2020 00:00:00 10/14/2020 12:17:43 [id number] [facility] [place] [address] [place] [address] Rd, [address] [address] 10/22/2020 00:00:00 10/22/2020 11:56:52 [id number] [facility] Pola Briseno, [place] [address] 12/02/2020 00:00:00 12/24/2020 22:03:34 [id number] [facility] [place] [address] [place] [address], [address] [address] 01/20/2021 00:00:00 01/20/2021 13:01:41 [id number] [facility] [place] [address] [facility] y , [place] [address] 03/24/2021 00:00:00 03/24/2021 22:58:21 [id number] [facility] [place] [address] [facility] y , [place] [address] 07/14/2021 00:00:00 08/17/2021 21:51:08 [id number] [facility] [place] [address] [place] [address] y , [place] [address] 11/10/2021 00:00:00 11/20/2021 12:09:51 [id number] [facility] Internal [facility] [place] [address] [facility] y , [place] [address] 03/16/2022 00:00:00 03/16/2022 23:40:22 [id number] Lyle Hickman MD [facility] Internal Med [place] [address] [place] [address] y , [place] [address] 07/13/2022 11:16:45 07/13/2022 12:39:48 Essential hypertension 29239420 I10 Screening for malignant neoplasm of prostate 224709402 Z12.5 Hearing loss 92567235 H9 1.93 Carotid ar leticia stenosis 77750489 I65.29 Chronic back pain 511288 002 M54.9 Dyslipidemia 050149941 E 78.5 Tobacco user 982491769 Z 72.0 Peripheral arterial occlusive disease 940710654 I73.9 [id number] Veronica Prieto MD [facility] [place] [address] [place] [address] 08/29/2022 11:42:31 08/31/2022 17:59:05 Asymmetrical sensorineural hearing loss 129330844 H90.5 [id number] Lyle Hickman MD [facility] Internal [facility] [place] [address] [place] [address] [place] [address] 11/09/2022 11:25:15 11/09/2022 12:23:34 Hypercholesterolemia 27354213 E78.00 Essential hypertension 46929034 I10 Peripheral arterial occlusive disease 854300249 I73.9 Tobacco user 287279324 Z 72.0 Carotid ar leticia stenosis 28765303 I65.29 [id number] Lyle Hickman MD [facility] [address] [facility] , [place] [address] 03/15/2023 10:45:56 03/15/2023 12:13:49 Dyslipidemia 484415648 E78.5 Essential hypertension 15097203 I10 Chronic back pain 575545 002 M54.9 Peripheral arterial occlusive disease 166148705 I73.9 Tobacco user 862684838 Z 72.0 Health Concerns Section Related Observation LastModified by Organization Detai ls LastModified Time None Recorded Concern Status LastModified by Organization Details LastModified Time None Recorded Advance Directives Directive N: Payers Encounter Date Sequence Insurance Name Policy Number Policy Diaz Covered Member ID Diaz Member ID Guarantor Name 07/13/2022 1 [employer] - [employer] - MEDICARE COMPLETE PLAN 1 (MEDICARE REPLACEMENT HMO) [id number] Lew A Josr [id number] Lew Josr 08/29/2022 1 [employer] - [employer] - MEDICARE COMPLETE PLAN 1 (MEDICARE REPLACEMENT HMO) [id number] Lew A Josr [id number] Lew Josr 11/09/2022 1 [employer] - [employer] - MEDICARE COMPLETE PLAN 1 (MEDICARE REPLACEMENT HMO) [id number] Lew A Josr [id number] Lew Josr 03/15/2023 1 [employer] - [employer] - MEDICARE COMPLETE PLAN 1 (MEDICARE REPLACEMENT HMO) [id number] Lew A Josr [id number] Lew Josr Notes Date Note Type Note Provider Name and Address Organization Details Recorded Time 3 text/html said some hearing loss is been chronichypertension no headache or dizzinesscarotid artery stenosis no TIA or stroke symptomschronic back pain stabledyslipidemia could do better with reduced saturated fatcontinues to use cigars Lyle Hickman MD [address] [place] [address] Flor, [facility] [address], [place], [address], [facility] [employer] [facility] 07/15/2022 18:36:08 3 text/html this patient has hearing loss and had an audiogram demonstrating severe high-frequency hearing loss bilaterally but with significantly different speech recognition scores between the right left side. The left side was much lower. Veronica Prieto MD [address], [place], [address], [facility] [employer] [facility] 08/29/2022 12:26:28 3 text/html said some hearing loss is been chronichypertension no headache or dizzinesscarotid artery stenosis no TIA or stroke symptomschronic back pain stabledyslipidemia could do better with reduced saturated fatcontinues to use cigars Lyle Hickman MD [address], [place], [address], [facility] [employer] [facility] 11/27/2022 22:43:42 4 text/html said some hearing loss is been chronichypertension no headache or dizzinesscarotid artery stenosis no TIA or stroke symptomschronic back pain stabledyslipidemia could do better with reduced saturated fatcontinues to use cigarsInterval history of mechanical fall ER veronica doing better Lyle Hickman MD [address], [place], [address], [facility] [employer] [facility] 04/06/2023 08:44:02
--- OUTSIDE RECORDS SUMMARY | 2024-05-08 12:31 | XMS_ITS | Referral Summary ---
Author Organization [facility] Address [address] [place] [address] Care Team Providers Care Certified Medical Records Coder Name Role Phone Andre Hickman MD Primary Care Provider Encounters Date Type Department Care Team Description 04/04/2024 8:30 AM CARPENTER REFRIGERATOR Office Visit [facility] [address] [facility] [address] [address] [place] [phone] Andre Newton MD Partial symptomatic epilepsy with complex partial seizures, not intractable, without status epilepticus (HCC) (Primary Dx); History of transient ischemic attack and cerebral infarction from Last 3 Months Allergies No known active allergies Medications aspirin [...] 03/15/2020 Assessment & Plan (03/15/2020 12:50 PM CARPENTER REFRIGERATOR): Patient is a former patient at [facility]. 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 He currently is on aspirin for cerebrovascular prophylaxis in addition to anti lipid antihypertension medications. Resolved Problems Problem Noted Date Diagnosed Date Resolved Date Cerebrovascular accident (CVA) 04/04/2024 Overview (03/31/2022): Stroke Social History Tobacco Use Types Packs/Day Years Used Date Smoking Tobacco: Former Smokeless Tobacco: Never Tobacco Cessation:Counseling Given: Not Answered Alcohol Use Standard Drinks/Week Comments Yes 0 (1 standard drink = 0.6 oz pur e alcohol) Sex and Gender Information Value Date Recorded Sex Assigned at Not on file Legal Sex Male 12:05 PM CARPENTER REFRIGERATOR Gender Identity Not on file Sexual Orientation Not on file Last Filed Vital Signs Vital Sign Reading Time Taken Comments Blood Pressure 149/90 04/04/2024 8:22 AM CARPENTER REFRIGERATOR Pulse 90 04/04/2024 8:22 AM CARPENTER REFRIGERATOR Temperature 36.7 C (98 F) 03/15/2020 11:42 AM CARPENTER REFRIGERATOR Respiratory Rate 18 04/04/2023 8:09 AM CARPENTER REFRIGERATOR Oxygen Saturation 97% 04/04/2024 8:22 AM CARPENTER REFRIGERATOR Inhaled Oxygen Concentration - - Weight 68.8 kg (151 lb 9.6 oz) 04/04/2024 8:22 A M CARPENTER REFRIGERATOR Height 175.3 cm (5' 9.02 ) 04/04/2024 8:22 AM CS T Body Mass Index 22.38 04/04/2024 8:22 AM CARPENTER REFRIGERATOR Plan of Treatment Not on file Insurance HMO REF Care Teams Certified Medical Records Coder Relationship Specialty Start Date End Date Andre Hickman MD [facility] - General 10/18/10
--- OUTSIDE RECORDS SUMMARY | 2024-05-08 12:31 | XMS_ITS | Encounter Summary ---
Author Organization [facility] Address [address] [place] [address] Phone Care Team Providers Care Paranormal Investigator Name Role Phone Andre Hickman MD Primary Care Provider Encounter Details Date Type Department Care Team (Late st Contact Info) Description 05/17/2017 Orders Only [facility] ProviderLeila MD [address] [place] [address] Social History Tobacco Use Types Packs/Day Years Used Date Smoking Tobacco: Never Assessed Alcohol Use Standard Drinks/Week Comments Yes 0 (1 standard drink = 0.6 oz pur e alcohol) Sex and Gender Information Value Date Recorded Sex Assigned at Not on file Legal Sex Male 12:05 PM ENERGY ADVISOR Gender Identity Not on file Sexual Orientation Not on file documented as of this encounter Plan of Treatment Not on file documented as of this encounter Procedures Procedure Name Priority Date/Time Associated Diagnosis Comments DISCHARGE LABORATORY CUMULATIVE REPORT 05/17/2017 12:00 AM CDT documented in this encounter Results * DISCHARGE LABORATORY CUMULATIVE REPORT (05/17/2017 12:00 AM CDT) Narrative 05/17/2017 12:00 AM CDT Ordered by an unspecified provider. Historical Provider LAB BLOOD ORDERABLES Sary l Result documented in this encounter Visit Diagnoses Not on filedocumented in this encounter Care Teams Paranormal Investigator Relationship Specialty Start Date End Date Andre Hickman MD PCP - General 10/18/10 documented as of this encounter
== END 2024-05-08 10:44 | disposition home or self-care (01) ==
PROVIDERS: PCP Internal Medicine; Visit Provider Internal Medicine
DX: J90 Pleural effusion, not elsewhere classified (principal); J81.1 Chronic pulmonary edema; I50.9 Heart failure, unspecified; D64.9 Anemia, unspecified
CPT/HCPCS: 36415; 71046; 80053; 82728; 83540; 83550; 83880; 85025

== ENCOUNTER 2024-05-09 13:12 | Inpatient (IN) | payer MEDICARE, SELFPAY ==
[2024-05-09] VITALS (9 sets, daily range): BP systolic 120–232; BP diastolic 60–187; PULSE 70–94; RESP 9–32; TEMP 36.4–37.4; O2SAT 94–100; BMI 21.7
--- NOTE | ~2024-05-09 | US_ITS ---
BILATERAL LOWER EXTREMITY VENOUS ULTRASOUND Ordering provider: Sita Stuart PA-C History: . Bilateral lower extremity edema . Comparison: None. FINDINGS: RIGHT LOWER EXTREMITY VEINS: --COMMON FEMORAL: Patent and free of thrombus. Normal compressibility, phasic flow and augmentation. --PROXIMAL SUPERFICIAL FEMORAL: Patent and free of thrombus. Normal compressibility, phasic flow and augmentation. --DISTAL SUPERFICIAL FEMORAL: Patent and free of thrombus. Normal compressibility, phasic flow and au gmentation. --POPLITEAL: Patent and free of thrombus. Normal compressibility, phasic flow and augmentation. --POSTERIOR TIBIAL: Patent and free of thrombus. Normal compressibility, phasic flow and augmentation . LEFT LOWER EXTREMITY VEINS: --COMMON FEMORAL: Patent and free of thrombus. Normal compressibility, phasic flow and augmentation. --PROXIMAL SUPERFICIAL FEMORAL: Patent and free of thrombus. Normal compressibility, phasic flow and augmentation. --DISTAL SUPERFICIAL FEMORAL: Patent and free of thrombus. Normal compressibility, phasic flow and au gmentation. --POPLITEAL: Patent and free of thrombus. Normal compressibility, phasic flow and augmentation. --POSTERIOR TIBIAL: Patent and free of thrombus. Normal compressibility, phasic flow and augmentation . IMPRESSION: Negative bilateral lower extremity venous US. No deep vein thrombosis. Reviewed, dictated and finalized at location [facility]. [facility]
--- NOTE | ~2024-05-09 | XR_ITS ---
EXAMINATION: XR chest 2V DATE: 05/09/2024 14:25 INDICATION: Shortness of breath. TECHNIQUE: Frontal and lateral views of the chest were obtained. COMPARISON: Chest 2 views 05/08/2024, CT abdomen and pelvis 03/13/24 FINDINGS: There are moderate-sized right and small left pleural effusions. There are airspace opaciti es at the lung bases. No pneumothorax. The heart size is normal. IMPRESSION: 1. Stable moderate-sized right and small left pleural effusions. 2. Airspace opacities at the lung bases, consistent with atelectasis versus pneumonia. Reviewed, dictated and finalized at location A. ER HAND IMPRESSION: 1. Stable moderate-sized right and small left pleural effusions. 2. Airspace opacities at the lung bases, consistent with atelectasis versus pne umonia.
--- NOTE | ~2024-05-09 | XR_ITS ---
EXAMINATION: [id number] DATE: 05/10/2024 11:36 INDICATION: Right pleural effusion status post thoracentesis. TECHNIQUE: Frontal and lateral views of the chest were obtained. COMPARISON: Chest 2 views 05/09/2024 FINDINGS: There are small pleural effusions. There are airspace opacities at the lung bases, likely a telectasis. The heart size is normal. There is mild chronic anterior wedging of multiple vertebral zenon dies. IMPRESSION: 1. Small pleural effusions with improvement on the right status post thoracentesis. Reviewed, dictated and finalized at location A. [employer] IMPRESSION: 1. Small pleural effusions with improvement on the right status post thoracente sis.
--- NOTE | ~2024-05-09 | US_ITS ---
EXAMINATION: US thoracentesis DATE: 05/10/2024 11:53 INDICATION: pleural effusion TECHNIQUE: The procedure and its risks, benefits, and alternatives were discussed with the patient. P otential risks discussed included bleeding, infection, and pneumothorax. The patient understood the r isks and agreed to proceed. The skin was prepped and draped in sterile fashion. 1% lidocaine was used for local anesthesia. Under ultrasound guidance, a 5 Fr catheter with trochar was advanced into the right pleural effusion. Fluid was aspirated. The catheter was removed, and a dressing was applied. Th ere were no immediate complications. FINDINGS: Ultrasound images demonstrate a right pleural effusion and the catheter within the fluid. IMPRESSION: 1. Successful ultrasound-guided thoracentesis yielding 1000 mL of yellow fluid. Reviewed, dictated and finalized at location A. 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 Successful ultrasound-guided thoracentesis yielding 1000 mL of yellow fluid .
--- NOTE | 2024-05-09 13:25 | ECG_ITS ---
Test Date: 2024-05-09 13:32:33 Measurements Intervals [place] Rate: 77 P: 20 NH: 150 QRS: -31 QRSD: 93 T: 60 QT: 380 QTc: 432 Interpretive Statements SINUS RHYTHM WITH OCCASIONAL VENTRICULAR PREMATURE COMPLEXES LEFT ATRIAL ENLARGEMENT [-0.15mV P-WAVE IN V1/V2] LEFT AXIS DEVIATION [QRS AXIS < -30] SUSPECT PREVIOUS ANTERIOR INFARCTION ABNORMAL ECG Compared to ECG 03/13/2024 15:42:18 Ventricular premature complex(es) now present Electronically Signed On 05-10-2024 15:27:07 BOTTLING ROOM WORKER by Andre Johnson M.D.
--- OUTSIDE RECORDS SUMMARY | 2024-05-09 13:35 | XMS_ITS | Referral Summary ---
Author Organization [facility] Address [address] [place] [address] Care Team Providers Care Senior Center Director Name Role Phone Andre Hickman MD Primary Care Provider Encounters Date Type Department Care Team Description 04/04/2024 8:30 AM PLODDING OPERATOR Office Visit [facility] [address] [place] [phone] Andre Newton MD Partial symptomatic epilepsy with [...] 03/15/2020 Assessment & Plan (03/15/2020 12:50 PM PLODDING OPERATOR): Patient is a former patient at [facility]. Prior medical records from [facility] [place] have been obtained and reviewed today during [...] 03/15/2020 Assessment & Plan (03/15/2020 12:50 PM PLODDING OPERATOR): Patient has history of prior ischemic cerebral [...] on file Legal Sex Male 12:05 PM PLODDING OPERATOR Gender Identity Not on file Sexual Orientation Not on file Last Filed Vital Signs Vital Sign Reading Time Taken Comments Blood Pressure 149/90 04/04/2024 8:22 AM PLODDING OPERATOR Pulse 90 04/04/2024 8:22 AM PLODDING OPERATOR Temperature 36.7 C (98 F) 03/15/2020 11:42 AM PLODDING OPERATOR Respiratory Rate 18 04/04/2023 8:09 AM PLODDING OPERATOR Oxygen Saturation 97% 04/04/2024 8:22 AM PLODDING OPERATOR Inhaled Oxygen Concentration - - Weight 68.8 kg (151 lb 9.6 oz) 04/04/2024 8:22 A M PLODDING OPERATOR Height 175.3 cm (5' 9.02 ) 04/04/2024 8:22 AM CS T Body Mass Index 22.38 04/04/2024 8:22 AM PLODDING OPERATOR Plan of Treatment Not on file Insurance [facility] Address: [address] [place], [place] [id number] HMO REF [facility] Address: [address] [address] [place] [address] Care Teams Senior Center Director Relationship Specialty Start Date End Date Andre Hickman MD [facility] - General 10/18/10
--- OUTSIDE RECORDS SUMMARY | 2024-05-09 13:35 | XMS_ITS | Clinical Summary ---
Author Organization [facility] Address [address] [place] [address] Care Team Providers Care International Trade Manager Name Role Phone Unavailable Primary Care Provider Unavailabl e Source Comments [facility],non-owned Affiliates and Associated Physician Practices is amultiple site organization consisting of ambulatory clinics and hospital sitesin [place], [place], [place] and [place]. This disclosure is being madepursuant to the Care Everywhere program and may not contain all information available regarding this patient. Last updated 17.[facility] [employer] Social History Tobacco Use Types Packs/Day Years [...]
--- OUTSIDE RECORDS SUMMARY | 2024-05-09 13:35 | XMS_ITS | CONTINUITY OF CARE DOCUMENT ---
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 [...] In-person encounter Office Visit Lele Shepherd MD [place] [facility] - In-person encounter Office Visit Lele Shepherd MD [place] [facility] - In-person encounter Office Visit Lele Shepherd MD [place] [facility] - In-person encounter Office Visit Lele Shepherd MD [place] [facility] - In-person encounter Office Visit Lele Shepherd MD [place] [facility] - In-person encounter Office Visit Lele Shepherd MD [place] [facility] - In-person encounter Office Visit Lele Shepherd MD [place] [facility] - In-person encounter Office Visit Lele Shepherd MD [place] [facility] - In-person encounter Office Visit Lele Shepherd MD [place] [facility] - In-person encounter Office Visit Lele Shepherd MD [place] [facility] - In-person encounter Office Visit Lele Shepherd MD [place] [facility] - In-person encounter Office Visit Lele Shepherd MD [place] [facility] - In-person encounter Office Visit Lele Shepherd MD [place] [facility] - In-person encounter Office Visit Lele Shepherd MD [place] [facility] Family History of CVA or Stroke:PVDCarotid [...] blood pressure, diastolic 62 mm[Hg] Ca therine Eva blood pressure, systolic 110 mm[Hg] Cat herine Eva oxygen saturation, oximetry 97 % Evonne Eva respiratory rate E&M 16 /min Catheri ne Riaz pulse rate 86 /min Evonne Eva weight E&M 169 [lb_av] Evonne Eva blood pressure, cuff size large Ca therine Riaz height E&M 68 [in_i] Evonne Eva Body Mass Index (Ratio) 25.54 kg/m2 Sam [...] Alejandro blood pressure, systolic 147 mm[Hg] Michelle Alejandro blood pressure, cuff size regular Maximiliano Alejandro [...] Petra Erika height E&M 68 [in_i] Petra Mertzon Body Mass Index (Ratio) 25.85 kg/m2 Sam [...] 0-149 4 cholesterol, serum 164 mg/dL [employer] [phone]/03/0 4 calcium, serum 9.5 mg/dL [employer] 8.6-10.2 4 carbon dioxide, venous blood 20 mmol/L [employer] 20-29 4 chloride, serum 103 mmol/L [employer] 96-106 4 potassium, serum 4.1 mmol/L [employer] 3.5-5.2 4 sodium, serum 143 mmol/L [employer] 151-872 2630/03/0 4 urea nitrogen/creatinin e ratio, serum 16 [...] Estab. 4 platelet count 367 X10E3/UL [employer] [phone]/03/0 4 red blood cell distribution width 12.6 [...] 0-149 7 cholesterol, serum 171 mg/dL [employer] [phone]/11/0 7 calcium, serum 9.5 mg/dL [employer] 8.6-10.2 7 carbon dioxide, venous blood 16 mmol/L [employer] 20-29 Low 7 chloride, serum 106 mmol/L [employer] 96-106 7 potassium, serum 4.1 mmol/L [employer] 3.5-5.2 7 sodium, serum 140 mmol/L [employer] 790-689 2452/11/0 7 urea nitrogen/creatinin e ratio, serum 16 [...] MD drug use no Alfreda Ventimig ladonna [facility] alcohol use, type beer Alfreda Theo timiglia [facility] alcohol use, average drinks per day 2 /d Alfreda Ventimiglia [facility] alcohol use yes Alfreda Ventimig ladonna [facility] passive cigarette sm hemal exposure no [...] Riaz chewing tobacco use Never Catherin e Eva number of years as a smoker 35 a Evonne Riaz smoking history, tot al pack/day 1 Evonne Riaz cigarette use yes Evonne Eva smoking status Former smoker Evonne Ot is [...] Stephanie Alejandro chewing tobacco use Never Stephanie Javon [...] as a smoker 35 a David Roy cigarette use yes David arciniega [...] Payer name Policy type / Coverage type [employer] party ID AARP MEDICARE ADVANTAGE HMO-POS HMO [id number] ADVANCE DIRECTIVES Name Date DISCUSSED - NO DECISION MADE TREATMENT PLAN Date Name Performer [id number],B, Lele Bruce farhana MENJIVAR [id number],S, eLle Bruce farhana MENJIVAR [id number],S, Lele Bruce farhana MENJIVAR [id number],S, Lele Bruce farhana MENJIVAR [id number],S, Lele Hidalgomarilou delcid MD [id number],S, Lele Bruce farhana MENJIVAR [id number],C,c ontinue asa, plavix an statin O rders: 9213 MOD 30-39min (CPT-17220) C omplete Echo (CPT-40781) C arotid Duplex Bilateral (CPT-00714) C RP, high sensitivity (13424) [facility] [id number],C,W ill get recent lipids from PCP H is updated medication list for this problem includes: Atorvastatin 20 Mg Tablet (Atorvastatin) ..... Tablet by mouth once a day Gemfibrozil 600 Mg Tablet (Gemfibrozil) ..... 1 tablet by mouth twice a day [facility] [id number],C,B lood pressure 149/85 today in office reports [...] 1 tablet by mouth once a day [facility] [id number],C,H as known history of carotid disease and CVA. Last carotid duplex in 2020 showed 50-69% stenosis of the FABBY. Will update carotids and lipids. continue asa, plavix and statin O rders: 9213 MOD 30-39min (CPT-79050) C omplete Echo (CPT-28511) C arotid Duplex Bilateral (CPT-88543) C RP, high sensitivity (03547) Alfreda Ventimiglia [facility] [id number],S, Lele delcid MD [id number],S, Lele delcid MD [id number],S, Lele delcid MD [id number],S, Lele delcid MD [id number],B, Lele delcid MD [id number],B, Lele delcid MD Cardiology Lele Shepherd MD [...] an statin O rders: 9213 MOD 30-39min (CPT-59506) C omplete Echo (CPT-22851) C arotid Duplex Bilateral (CPT-11594) C RP, high sensitivity (67080) Alfreda Powers [facility] Cardiology:Will get recent lipids from PCP H is updated medication list for this problem includes: Atorvastatin 20 Mg Tablet (Atorvastatin) ..... Tablet by mouth once a day Gemfibrozil 600 Mg Tablet (Gemfibrozil) ..... 1 tablet by mouth twice a day Alfredaghassan Powers [facility] Cardiology:Blood pre ssure 149/85 today in [...] by mouth once a day Alfredaghassan Powers [facility] Cardiology:Has known history of carotid disease and CVA. Last carotid duplex in 2020 showed 50-69% stenosis of the FABBY. Will update carotids and lipids. continue asa, plavix and statin O rders: 47532 MOD 30-39min (CPT-63451) C omplete Echo (CPT-59062) C arotid Duplex Bilateral (CPT-94571) C RP, high sensitivity (60517) Alfreda Powers [facility] Cardiology Lele Shepherd MD Cardiology Lele [...] seth MD Cardiology follow up Lele Taryn seht MD Cardiology follow up Lele seth MD [...] Shepherd MD Cardiology Lele Shepherd MD Cardiology Lelemaritaz Shepherd MD Cardiology Lele Shepherd MD Cardiology [...] EKG Lele Shepherd MD complete d SNOMED-CT: 015099205 025388 Current Medications Documented Lele Shepherd MD completed SNOMED-CT: 069734661 328548 Current Medications Documented Lele Shepherd MD completed SNOMED-CT: 794799732 Smoking Cessation Counseling Lele Shepherd MD completed EKG Lele Shepherd MD complete d SNOMED-CT: 384012853 679323 Current Medications Documented Lele Shepherd MD completed
--- OUTSIDE RECORDS SUMMARY | 2024-05-09 13:35 | XMS_ITS | Referral Summary ---
Author Organization [facility] Address [address] [place] [address] Care Team Providers Care Dental Tech Name Role Phone Unavailable Primary Care Provider Unavailabl e Source Comments [facility],non-owned Affiliates and Associated Physician Practices is amultiple site organization consisting of ambulatory clinics and hospital sitesin [place], [place], [place] and [place]. This disclosure is being madepursuant to the Care Everywhere program and may not contain all information available regarding this patient. Last updated 17.[facility] [employer] Social History Tobacco Use Types Packs/Day Years [...]
--- OUTSIDE RECORDS SUMMARY | 2024-05-09 13:35 | XMS_ITS | Clinical Summary ---
Author Organization [facility] Address [address] [place] [address] Care Team Providers Care Forensic Social Worker Name Role Phone Andre Hickman MD Primary Care Provider Allergies No known active allergies Medications aspirin [...] 03/15/2020 Assessment & Plan (03/15/2020 12:50 PM BAKERY DELIVERER): Patient is a former patient at [facility]. 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 He currently is on aspirin for cerebrovascular prophylaxis in addition to anti lipid antihypertension medications. Resolved Problems Problem Noted Date Diagnosed Date Resolved Date Cerebrovascular accident (CVA) 04/04/2024 Overview (03/31/2022): Stroke Encounters Date Type Department Care Team Description 04/04/2024 8:30 AM BAKERY DELIVERER Office Visit [facility] [address] [place] [phone] Andre Newton MD Partial symptomatic epilepsy [...] on file Legal Sex Male 12:05 PM BAKERY DELIVERER Gender Identity Not on file Sexual Orientation Not on file Obstetrics History Last Filed Vital Signs Vital Sign Reading Time Taken Comments Blood Pressure 149/90 04/04/2024 8:22 AM BAKERY DELIVERER Pulse 90 04/04/2024 8:22 AM BAKERY DELIVERER Temperature 36.7 C (98 F) 03/15/2020 11:42 AM BAKERY DELIVERER Respiratory Rate 18 04/04/2023 8:09 AM BAKERY DELIVERER Oxygen Saturation 97% 04/04/2024 8:22 AM BAKERY DELIVERER Inhaled Oxygen Concentration - - Weight 68.8 kg (151 lb 9.6 oz) 04/04/2024 8:22 A M BAKERY DELIVERER Height 175.3 cm (5' 9.02 ) 04/04/2024 8:22 AM CS T Body Mass Index 22.38 04/04/2024 8:22 AM BAKERY DELIVERER Plan of Treatment Health Maintenance Due Date [...] vaccine 65+ Completed 022, 11/22/2019, 11/23/2018 Insurance [facility] HMO [facility] Address[facility] [address] [place] [address] [facility] HMO [facility] Address: [facility] [address] [place] [address] Care Teams Forensic Social Worker Relationship Specialty Start Date End Date Andre Hickman MD PCP - General 10/18/10
--- OUTSIDE RECORDS SUMMARY | 2024-05-09 13:35 | XMS_ITS | Encounter Summary ---
Author Organization [facility] Address [address] [place] [address] Phone Care Team Providers Care Security Operations Manager Name Role Phone Andre Hickman MD Primary Care Provider Encounter Details Date Type Department Care Team (Late st Contact Info) Description 05/17/2017 Orders Only [facility] ProviderLeila MD [address] [place] [id number] Social History Tobacco Use Types Packs/Day Years Used Date Smoking Tobacco: Never Assessed Alcohol Use Standard Drinks/Week Comments Yes 0 (1 standard drink = 0.6 oz pur e alcohol) Sex and Gender Information Value Date Recorded Sex Assigned at Not on file Legal Sex Male 12:05 PM BATTERY TESTER Gender Identity Not on file Sexual Orientation [...] on filedocumented in this encounter Care Teams Security Operations Manager Relationship Specialty Start Date End Date Andre Hickman MD PCP - General 10/18/10 documented as of this encounter
--- OUTSIDE RECORDS SUMMARY | 2024-05-09 13:36 | XMS_ITS | Patient Health Summary ---
Author Organization [facility] Address [address] [place] [address] Care Team Providers Care Family Support Specialist Name Role Phone Unavailable Primary Care Provider Unavailabl e Note from [facility],non-owned Affiliates and Associated Physician Practices is amultiple site organization consisting of ambulatory clinics and hospital sitesin [place], [place], [place] and [place]. This disclosure is being madepursuant to the Care Everywhere program and may not contain all information available regarding this patient. Last updated 17.[facility] [employer] Social History Tobacco Use Types Packs/Day Years [...]
--- OUTSIDE RECORDS SUMMARY | 2024-05-09 13:36 | XMS_ITS | Data Portability ---
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 He had a colonoscopy about 2 years ago in [facility] he thinks are trying to get that report he will try to get the run down on his immunizations. Continue current therapy diagnosis and assessment and plan have been discussed. Healthy lifestyle care instructions. Blood work. See me in 4 months. [email or web address] Not available 01/26/2024 20:50:07 03/12/2024 03/12/2024 he [...] blood work and take it from there [email or web address] Not available 03/16/2024 17:25:10 03/19/2024 03/19/2024 I will see him i n about 3 weeks. He can return to work this coming Sunday. We will hold the lisinopril hydrochlorothiazide for now his other medications from home we will continue. Continue with the boost drinks on a daily basis to increase his protein intake [email or web address] Not available 03/19/2024 22:10:46 04/09/2024 04/09/2024 we will continue current therapy he will start his iron he did have a fecal immunochemical testing was negative I will see him back in 3 months [email or web address] Not available 04/13/2024 18:25:24 Plan of Treatment Reminders Order Date Submit Date Provider Last Modified By Organization Details Last Modified Time Details Appointments ANY 15 2024 11:00A M Lyle Hickman MD Not available Not available Not available Lab CBC w/ auto diff 2024 025 [email or web address] [facility], [address], [place], [address], 03/20/2024 13:14:18 CMP, serum or plasma 2024 025 [place] [facility], [address], [place], [address], 03/20/2024 13:14:16 urinalys is, dipstick , reflex micro - UA with micro 2024 025 [email or web address] [facility], [address], [place], [address], 03/13/2024 10:59:14 lipase, serum or plasma 2024 025 [email or web address] [facility], [address], [place], [address], 03/13/2024 09:46:48 CBC w/ auto diff 2024 025 [place] [facility], [address], [place], [address], 03/13/2024 03:58:30 CMP, serum or plasma 2024 025 [email or web address] [facility], [address], [place], [address], 03/13/2024 09:46:48 lipid panel, serum 2023 024 [email or web address] [facility], [address], [place], [address], 01/23/2024 08:27:07 CMP, serum or plasma 2023 024 [place] [facility], [address], [place], [address], 01/23/2024 08:27:09 CBC w/ auto diff 2023 024 [email or web address] [facility], [address], [place], [address], 01/23/2024 08:27:10 vitamin D, 25-hydro xy, total, serum 2023 [place] [facility], [address], [place], [address], 01/23/2024 08:27:11 Referral None recorded . Procedures None recorded . Surgeries None recorded . Imaging None recorded . Medication Orders None recorded . Patient TargetsNo targets recorded. Patient Instructions Encounter Date Encounter Id Patient Instructions Last Modified By Organization Details Last Modified Time 01/22/2024 [id number] A healthy lifestyle: care instructions [email or web address] Not available 01/22/2024 12:59:23 Reason for Referral Audit Specialist Referral for Co ngestive heart failure Referring Physician: Lyle Hickman, Internal Medicine, Encounter Date: 05/08/2024 Results Created Date Observation Date Name Description Value Unit Range Abnormal Flag Note LastModifiedBy Organization Detail LastModifiedTime 01/22/2001/23/2024 LIPID PANEL cholesterol, total 161 mg/dL 100-19 9 Not Available [facility] ([facility]) [address] [facility], [place], [address], 01/23/2024 08:27:07 01/22/20 24 01/23/2024 LIPID PANEL triglyceride s 107 mg/dL 0-149 Not Available [facility] ([facility]) [address] [facility], [place], [address], 01/23/2024 08:27:07 01/22/20 24 01/23/2024 LIPID PANEL HDL cholesterol 63 mg/dL >39 Not Available [facility] ([facility]) [address] [facility] [place], [address], 01/23/2024 08:27:07 01/22/20 24 01/23/2024 LIPID PANEL VLDL cholesterol linden 19 mg/dL 5-40 Not Available [facility] ([facility]) [address] [place], [address], 01/23/2024 08:27:07 01/22/20 24 01/23/2024 LIPID PANEL LDL chol calc ([facility]) 79 mg/dL 0-99 Not Available [facility] ([facility]) [address] [place], [address], 01/23/2024 08:27:07 01/22/20 24 01/23/2024 COMP. METAB OLIC PANEL (14) glucose 94 mg/dL 70-99 Not Available [facility] ([facility]) [address] [place], [address], 01/23/2024 08:27:08 01/22/20 24 01/23/2024 COMP. METAB OLIC PANEL (14) BUN 28 mg/dL 8-27 above high normal Not Available [facility] ([facility]) [address] [facility], [place], [address], 01/23/2024 08:27:08 01/22/20 24 01/23/2024 COMP. METAB OLIC PANEL (14) creatinine 1.19 mg/dL 0.76-1 .27 Not Available [facility] ([facility]) [address] [place], [address], 01/23/2024 08:27:08 01/22/20 24 01/23/2024 COMP. METAB OLIC PANEL (14) eGFR 65 mL/mi n/1.7 3 >59 Not Available [facility] ([facility]) [address] [place], [address], 01/23/2024 08:27:08 01/22/20 24 01/23/2024 COMP. METAB OLIC PANEL (14) BUN/creatini ne ratio 24 10-24 Not Available [facility] ([facility]) [address] [place], [address], 01/23/2024 08:27:08 01/22/20 24 01/23/2024 COMP. METAB OLIC PANEL (14) sodium 141 mmol/ L 134-14 4 Not Available [facility] ([facility]) [address] [place], [address], 01/23/2024 08:27:08 01/22/20 24 01/23/2024 COMP. METAB OLIC PANEL (14) potassium 4.6 mmol/ L 3.5-5. 2 Not Available [facility] ([facility]) [address] [place], [address], 01/23/2024 08:27:08 01/22/20 24 01/23/2024 COMP. METAB OLIC PANEL (14) chloride 106 mmol/ L 96-106 Not Available [facility] ([facility]) [address] [place], [address], 01/23/2024 08:27:08 01/22/20 24 01/23/2024 COMP. METAB OLIC PANEL (14) carbon dioxide, total 20 mmol/ L 20-29 Not Available [facility] ([facility]) [address] [place], [address], 01/23/2024 08:27:08 01/22/20 24 01/23/2024 COMP. METAB OLIC PANEL (14) calcium 9.6 mg/dL 8.6-10 .2 Not Available [facility] ([facility]) [address] [facility], [address], 01/23/2024 08:27:08 01/22/20 24 01/23/2024 COMP. METAB OLIC PANEL (14) protein, total 6.6 g/dL 6.0-8. 5 Not Available [facility] ([facility]) [address] [place], [address], 01/23/2024 08:27:08 01/22/20 24 01/23/2024 COMP. METAB OLIC PANEL (14) albumin 4.5 g/dL 3.8-4. 8 Not Available [facility] ([facility]) [address] [facility] [place], [address], 01/23/2024 08:27:08 01/22/20 24 01/23/2024 COMP. METAB OLIC PANEL (14) globulin, total 2.1 g/dL 1.5-4. 5 Not Available [facility] ([facility]) [address] [facility], [place], [address], 01/23/2024 08:27:08 01/22/20 24 01/23/2024 COMP. METAB OLIC PANEL (14) bilirubin, total <0.2 mg/dL 0.0-1. 2 Not Available [facility] ([facility]) [address] [facility] [place], [address], 01/23/2024 08:27:08 01/22/20 24 01/23/2024 COMP. METAB OLIC PANEL (14) alkaline phosphatase 98 IU/L 44-121 Not Available [facility] ([facility]) [address] [facility] [place], [address], 01/23/2024 08:27:08 01/22/20 24 01/23/2024 COMP. METAB OLIC PANEL (14) AST (SGOT) 18 IU/L 0-40 Not Available [facility] ([facility]) [address] [facility], [place], [address], 01/23/2024 08:27:08 01/22/20 24 01/23/2024 COMP. METAB OLIC PANEL (14) ALT (SGPT) 12 IU/L 0-44 Not Available [facility] ([facility]) [address] [facility], [place], [address], 01/23/2024 08:27:08 01/22/20 24 01/23/2024 CBC WITH DIFFE RENTI AL/PL ATELE T WBC 8.2 x10e3 /uL 3.4-10 .8 Eff ectiv e Decem young 2023 [place] [id number] 5 WBC will be made* * non-o rdera ble as a stand -yomi e order code. Not Available [facility] ([facility]) [address] [facility], [place], [address], 01/23/2024 08:27:10 01/22/20 24 01/23/2024 CBC WITH DIFFE RENTI AL/PL ATELE T RBC 4.52 x10e6 /uL 4.14-5 .80 Not Available [facility] ([facility]) [address] [facility], [place], [address], 01/23/2024 08:27:10 01/22/20 24 01/23/2024 CBC WITH DIFFE RENTI AL/PL ATELE T hemoglobin 13.8 g/dL 13.0-1 7.7 Not Available [facility] ([facility]) [address] [facility], [place], [address], 01/23/2024 08:27:10 01/22/20 24 01/23/2024 CBC WITH DIFFE RENTI AL/PL ATELE T hematocrit 42.5 % 37.5-5 1.0 Not Available [facility] ([facility]) [address] [facility], [place], [address], 01/23/2024 08:27:10 01/22/20 24 01/23/2024 CBC WITH DIFFE RENTI AL/PL ATELE T MCV 94 fL 79-97 Not Available [facility] ([facility]) [address] [facility], [place], [address], 01/23/2024 08:27:10 01/22/20 24 01/23/2024 CBC WITH DIFFE RENTI AL/PL ATELE T MCH 30.5 pg 26.6-3 3.0 Not Available [facility] ([facility]) [address] [facility], [place], [address], 01/23/2024 08:27:10 01/22/20 24 01/23/2024 CBC WITH DIFFE RENTI AL/PL ATELE T MCHC 32.5 g/dL 31.5-3 5.7 Not Available [facility] ([facility]) [address] [facility], [place], [address], 01/23/2024 08:27:10 01/22/20 24 01/23/2024 CBC WITH DIFFE RENTI AL/PL ATELE T RDW 12.4 % 11.6-1 5.4 Not Available [facility] ([facility]) [address] [facility], [place], [address], 01/23/2024 08:27:10 01/22/20 24 01/23/2024 CBC WITH DIFFE RENTI AL/PL ATELE T platelets 329 x10e3 /uL 150-45 0 Not Available [facility] ([facility]) [address] [facility], [place], [address], 01/23/2024 08:27:10 01/22/20 24 01/23/2024 CBC WITH DIFFE RENTI AL/PL ATELE T neutrophils 62 % notest ab. Not Available [facility] ([facility]) [address] [facility], [place], [address], 01/23/2024 08:27:10 01/22/20 24 01/23/2024 CBC WITH DIFFE RENTI AL/PL ATELE T lymphs 19 % notest ab. Not Available [facility] ([facility]) [address] [facility], [place], [address], 01/23/2024 08:27:10 01/22/20 24 01/23/2024 CBC WITH DIFFE RENTI AL/PL ATELE T monocytes 10 % notest ab. Not Available [facility] ([facility]) [address] [facility], [place], [address], 01/23/2024 08:27:10 01/22/20 24 01/23/2024 CBC WITH DIFFE RENTI AL/PL ATELE T eos 8 % notest ab. Not Available [facility] ([facility]) [address] [facility], [place], [address], 01/23/2024 08:27:10 01/22/20 24 01/23/2024 CBC WITH DIFFE RENTI AL/PL ATELE T basos 1 % notest ab. Not Available [facility] ([facility]) [address] [facility], [place], [address], 01/23/2024 08:27:10 01/22/20 24 01/23/2024 CBC WITH DIFFE RENTI AL/PL ATELE T neutrophils (absolute) 5.1 x10e3 /uL 1.4-7. 0 Not Available [facility] ([facility]) [address] [facility], [place], [address], 01/23/2024 08:27:10 01/22/20 24 01/23/2024 CBC WITH DIFFE RENTI AL/PL ATELE T lymphs (absolute) 1.6 x10e3 /uL 0.7-3. 1 Not Available [facility] ([facility]) [address] [facility], [place], [address], 01/23/2024 08:27:10 01/22/20 24 01/23/2024 CBC WITH DIFFE RENTI AL/PL ATELE T monocytes(ab solute) 0.8 x10e3 /uL 0.1-0. 9 Not Available [facility] ([facility]) [address] [facility], [place], [address], 01/23/2024 08:27:10 01/22/20 24 01/23/2024 CBC WITH DIFFE RENTI AL/PL ATELE T eos (absolute) 0.6 x10e3 /uL 0.0-0. 4 above high normal Not Available [facility] ([facility]) [address] [facility] [place], [address], 01/23/2024 08:27:10 01/22/20 24 01/23/2024 CBC WITH DIFFE RENTI AL/PL ATELE T baso (absolute) 0.1 x10e3 /uL 0.0-0. 2 Not Available [facility] ([facility]) [address] [facility], [place], [address], 01/23/2024 08:27:10 01/22/20 24 01/23/2024 CBC WITH DIFFE RENTI AL/PL ATELE T immature granulocytes 0 % notest ab. Not Available [facility] ([facility]) [address] [facility] [place], [address], 01/23/2024 08:27:10 01/22/20 24 01/23/2024 CBC WITH DIFFE RENTI AL/PL ATELE T immature grans (abs) 0.0 x10e3 /uL 0.0-0. 1 Not Available [facility] ([facility]) [address] [place], [address], 01/23/2024 08:27:10 01/22/20 24 01/23/2024 VITAM IN [...] um and D. Adelia ba [place]: [facility] . 2. Holic k MF, Binkl ey [place], Bisch off-F errar i GUTIERREZ, et al. Evalu ation , treat ment, and preve ntion of vitam in D defic iency : an Endoc rine Socie ty clini linden pract ice guide line. JCEM. 2010; 96(7) :1911 -30. Not Available [facility] ([facility]) [address] [place], [address], 01/23/2024 08:27:11 03/19/19 25 03/20/2024 COMP. METAB OLIC PANEL (14) glucose - mg/dL Test not perfo rmed. Serum was in conta ct with cells when recei soraida which will make the resul t inacc urate . Not Available [facility] ([facility]) [address] [place], [address], 03/20/2024 13:14:16 03/19/19 25 03/20/2024 COMP. METAB OLIC PANEL (14) BUN 13 mg/dL 8-27 Not Available [facility] ([facility]) [address] [place], [address], 03/20/2024 13:14:16 03/19/19 25 03/20/2024 COMP. METAB OLIC PANEL (14) creatinine 0.93 mg/dL 0.76-1 .27 Not Available [facility] ([facility]) [address] [place], [address], 03/20/2024 13:14:16 03/19/19 25 03/20/2024 COMP. METAB OLIC PANEL (14) eGFR 88 mL/mi n/1.7 3 >59 Not Available [facility] ([facility]) [address] [place], [address], 03/20/2024 13:14:16 03/19/19 25 03/20/2024 COMP. METAB OLIC PANEL (14) BUN/creatini ne ratio 14 10-24 Not Available [facility] ([facility]) [address], [place], [address], 03/20/2024 13:14:16 03/19/19 25 03/20/2024 COMP. METAB OLIC PANEL (14) sodium 136 mmol/ L 134-14 4 Not Available [facility] ([facility]) [address] [facility] [place], [address], 03/20/2024 13:14:16 03/19/19 25 03/20/2024 COMP. METAB OLIC PANEL (14) potassium - mmol/ L Test not perfo rmed. Serum was in conta ct with cells when recei soraida which will make the resul t inacc urate . Not Available [facility] ([facility]) [address] [facility] [place], [address], 03/20/2024 13:14:16 03/19/19 25 03/20/2024 COMP. METAB OLIC PANEL (14) chloride 109 mmol/ L 96-106 above high normal Not Available [facility] ([facility]) [address] [facility] [place], [address], 03/20/2024 13:14:16 03/19/19 25 03/20/2024 COMP. METAB OLIC PANEL (14) carbon dioxide, total 15 mmol/ L 20-29 below low normal Not Available [facility] ([facility]) [address] [facility] [place], [address], 03/20/2024 13:14:16 03/19/19 25 03/20/2024 COMP. METAB OLIC PANEL (14) calcium 8.4 mg/dL 8.6-10 .2 below low normal Not Available [facility] ([facility]) [address] [place], [address], 03/20/2024 13:14:16 03/19/19 25 03/20/2024 COMP. METAB OLIC PANEL (14) protein, total 5.6 g/dL 6.0-8. 5 below low normal Not Available [facility] ([facility]) [address] [place], [address], 03/20/2024 13:14:16 03/19/19 25 03/20/2024 COMP. METAB OLIC PANEL (14) albumin 3.6 g/dL 3.8-4. 8 below low normal Not Available [facility] ([facility]) [address] [place], [address], 03/20/2024 13:14:16 03/19/19 25 03/20/2024 COMP. METAB OLIC PANEL (14) globulin, total 2.0 g/dL 1.5-4. 5 Not Available [facility] ([facility]) [address] [place], [address], 03/20/2024 13:14:16 03/19/19 25 03/20/2024 COMP. METAB OLIC PANEL (14) bilirubin, total <0.2 mg/dL 0.0-1. 2 Not Available [facility] ([facility]) [address] [place], [address], 03/20/2024 13:14:16 03/19/19 25 03/20/2024 COMP. METAB OLIC PANEL (14) alkaline phosphatase 99 IU/L 44-121 Not Available [facility] ([facility]) [address] [place], [address], 03/20/2024 13:14:16 03/19/19 25 03/20/2024 COMP. METAB OLIC PANEL (14) AST (SGOT) 21 IU/L 0-40 Not Available [facility] ([facility]) [address] [facility], [place], [address], 03/20/2024 13:14:16 03/19/1903/20/2024 COMP. METAB OLIC PANEL (14) ALT (SGPT) 16 IU/L 0-44 Not Available [facility] ([facility]) [address] [facility], [place], [address], 03/20/2024 13:14:16 03/19/19 25 03/20/2024 CBC WITH DIFFE RENTI AL/PL ATELE T WBC 5.5 x10e3 /uL 3.4-10 .8 Not Available [facility] ([facility]) [address] [facility], [place], [address], 03/20/2024 13:14:17 03/19/19 25 03/20/2024 CBC WITH DIFFE RENTI AL/PL ATELE T RBC 3.67 x10e6 /uL 4.14-5 .80 below low normal Not Available [facility] ([facility]) [address] [facility], [place], [address], 03/20/2024 13:14:17 03/19/19 25 03/20/2024 CBC WITH DIFFE RENTI AL/PL ATELE T hemoglobin 10.9 g/dL 13.0-1 7.7 below low normal Not Available [facility] ([facility]) [address] [facility], [place], [address], 03/20/2024 13:14:17 03/19/19 25 03/20/2024 CBC WITH DIFFE RENTI AL/PL ATELE T hematocrit 32.8 % 37.5-5 1.0 below low normal Not Available [facility] ([facility]) [address] [facility], [place], [address], 03/20/2024 13:14:17 03/19/19 25 03/20/2024 CBC WITH DIFFE RENTI AL/PL ATELE T MCV 89 fL 79-97 Not Available [facility] ([facility]) [address] [facility], [place], [address], 03/20/2024 13:14:17 03/19/19 25 03/20/2024 CBC WITH DIFFE RENTI AL/PL ATELE T MCH 29.7 pg 26.6-3 3.0 Not Available [facility] ([facility]) [address] [facility], [place], [address], 03/20/2024 13:14:17 03/19/19 25 03/20/2024 CBC WITH DIFFE RENTI AL/PL ATELE T MCHC 33.2 g/dL 31.5-3 5.7 Not Available [facility] ([facility]) [address] [facility], [place], [address], 03/20/2024 13:14:17 03/19/19 25 03/20/2024 CBC WITH DIFFE RENTI AL/PL ATELE T RDW 13.3 % 11.6-1 5.4 Not Available [facility] ([facility]) [address] [facility], [place], [address], 03/20/2024 13:14:17 03/19/19 25 03/20/2024 CBC WITH DIFFE RENTI AL/PL ATELE T platelets 273 x10e3 /uL 150-45 0 Not Available [facility] ([facility]) [address] [place], [address], 03/20/2024 13:14:17 03/19/19 25 03/20/2024 CBC WITH DIFFE RENTI AL/PL ATELE T neutrophils 54 % notest ab. Not Available [facility] ([facility]) [address] [place], [address], 03/20/2024 13:14:17 03/19/19 25 03/20/2024 CBC WITH DIFFE RENTI AL/PL ATELE T lymphs 23 % notest ab. Not Available [facility] ([facility]) [address] [place], [address], 03/20/2024 13:14:17 03/19/19 25 03/20/2024 CBC WITH DIFFE RENTI AL/PL ATELE T monocytes 11 % notest ab. Not Available [facility] ([facility]) [address] [facility], [place], [address], 03/20/2024 13:14:17 03/19/19 25 03/20/2024 CBC WITH DIFFE RENTI AL/PL ATELE T eos 11 % notest ab. Not Available [facility] ([facility]) [address] [facility], [place], [address], 03/20/2024 13:14:17 03/19/19 25 03/20/2024 CBC WITH DIFFE RENTI AL/PL ATELE T basos 1 % notest ab. Not Available [facility] ([facility]) [address] [facility], [place], [address], 03/20/2024 13:14:17 03/19/1903/20/2024 CBC WITH DIFFE RENTI AL/PL ATELE T neutrophils (absolute) 3.0 x10e3 /uL 1.4-7. 0 Not Available [facility] ([facility]) [address] [place], [address], 03/20/2024 13:14:17 03/19/1903/20/2024 CBC WITH DIFFE RENTI AL/PL ATELE T lymphs (absolute) 1.3 x10e3 /uL 0.7-3. 1 Not Available [facility] ([facility]) [address] [place], [address], 03/20/2024 13:14:17 03/19/1903/20/2024 CBC WITH DIFFE RENTI AL/PL ATELE T monocytes(ab solute) 0.6 x10e3 /uL 0.1-0. 9 Not Available [facility] ([facility]) [address] [facility], [place], [address], 03/20/2024 13:14:17 03/19/19 25 03/20/2024 CBC WITH DIFFE RENTI AL/PL ATELE T eos (absolute) 0.6 x10e3 /uL 0.0-0. 4 above high normal Not Available [facility] ([facility]) [address] [facility], [place], [address], 03/20/2024 13:14:17 03/19/19 25 03/20/2024 CBC WITH DIFFE RENTI AL/PL ATELE T baso (absolute) 0.0 x10e3 /uL 0.0-0. 2 Not Available [facility] ([facility]) [address] [facility], [place], [address], 03/20/2024 13:14:17 03/19/19 25 03/20/2024 CBC WITH DIFFE RENTI AL/PL ATELE T immature granulocytes 0 % notest ab. Not Available [facility] ([facility]) [address] [facility], [place], [address], 03/20/2024 13:14:17 03/19/19 25 03/20/2024 CBC WITH DIFFE RENTI AL/PL ATELE T immature grans (abs) 0.0 x10e3 /uL 0.0-0. 1 Not Available [facility] ([facility]) [address] [place], [address], 03/20/2024 13:14:17 04/04/19 25 04/05/2024 COMP. METAB OLIC PANEL (14) glucose 71 mg/dL 70-99 Not Available [facility] ([facility]) [address] [facility] [place], [address], 04/05/2024 06:19:18 04/04/19 25 04/05/2024 COMP. METAB OLIC PANEL (14) BUN 15 mg/dL 8-27 Not Available [facility] ([facility]) [address] [facility], [place], [address], 04/05/2024 06:19:18 04/04/19 25 04/05/2024 COMP. METAB OLIC PANEL (14) creatinine 1.08 mg/dL 0.76-1 .27 Not Available [facility] ([facility]) [address] [place], [address], 04/05/2024 06:19:18 04/04/19 25 04/05/2024 COMP. METAB OLIC PANEL (14) eGFR 73 mL/mi n/1.7 3 >59 Not Available [facility] ([facility]) [address] [place], [address], 04/05/2024 06:19:18 04/04/19 25 04/05/2024 COMP. METAB OLIC PANEL (14) BUN/creatini ne ratio 14 10-24 Not Available [facility] ([facility]) [address] [facility] [place], [address], 04/05/2024 06:19:18 04/04/19 25 04/05/2024 COMP. METAB OLIC PANEL (14) sodium 141 mmol/ L 134-14 4 Not Available [facility] ([facility]) [address] [place], [address], 04/05/2024 06:19:18 04/04/19 25 04/05/2024 COMP. METAB OLIC PANEL (14) potassium 4.5 mmol/ L 3.5-5. 2 Not Available [facility] ([facility]) [address] [place], [address], 04/05/2024 06:19:18 04/04/19 25 04/05/2024 COMP. METAB OLIC PANEL (14) chloride 105 mmol/ L 96-106 Not Available [facility] ([facility]) [address] [place], [address], 04/05/2024 06:19:18 04/04/19 25 04/05/2024 COMP. METAB OLIC PANEL (14) carbon dioxide, total 21 mmol/ L 20-29 Not Available [facility] ([facility]) [address] [place], [address], 04/05/2024 06:19:18 04/04/19 25 04/05/2024 COMP. METAB OLIC PANEL (14) calcium 9.3 mg/dL 8.6-10 .2 Not Available [facility] ([facility]) [address] [place], [address], 04/05/2024 06:19:18 04/04/1904/05/2024 COMP. METAB OLIC PANEL (14) protein, total 6.0 g/dL 6.0-8. 5 Not Available [facility] ([facility]) [address] [place], [address], 04/05/2024 06:19:18 04/04/1904/05/2024 COMP. METAB OLIC PANEL (14) albumin 3.7 g/dL 3.8-4. 8 below low normal Not Available [facility] ([facility]) [address] [place], [address], 04/05/2024 06:19:18 04/04/19 25 04/05/2024 COMP. METAB OLIC PANEL (14) globulin, total 2.3 g/dL 1.5-4. 5 Not Available [facility] ([facility]) [address] [place], [address], 04/05/2024 06:19:18 04/04/1904/05/2024 COMP. METAB OLIC PANEL (14) bilirubin, total <0.2 mg/dL 0.0-1. 2 Not Available [facility] ([facility]) [address] [place], [address], 04/05/2024 06:19:18 04/04/19 25 04/05/2024 COMP. METAB OLIC PANEL (14) alkaline phosphatase 112 IU/L 44-121 Not Available [facility] ([facility]) [address] [facility] [place], [address], 04/05/2024 06:19:18 04/04/19 25 04/05/2024 COMP. METAB OLIC PANEL (14) AST (SGOT) 12 IU/L 0-40 Not Available [facility] ([facility]) [address] [facility] [place], [address], 04/05/2024 06:19:18 04/04/19 25 04/05/2024 COMP. METAB OLIC PANEL (14) ALT (SGPT) 9 IU/L 0-44 Not Available [facility] ([facility]) [address] [facility] [place], [address], 04/05/2024 06:19:18 04/04/19 25 04/05/2024 VITAM IN B12 AND FOLAT E vitamin B12 288 pg/mL 232-12 45 Not Available [facility] ([facility]) [address] [facility] [place], [address], 04/05/2024 06:19:19 04/04/1904/05/2024 VITAM IN B12 AND FOLAT E folate (folic acid), serum 6.5 NG/mL >3.0 A serum folat e nargis ntrat ion of less than 3.1 ng/mL is consi dered to repre sent clini linden defic iency . Not Available [facility] ([facility]) [address] [facility] [place], [address], 04/05/2024 06:19:19 04/04/1904/05/2024 IRON AND TIBC iron bind.cap.(TI BC) 265 ug/dL 250-45 0 Not Available [facility] ([facility]) [address] [facility] [place], [address], 04/05/2024 06:19:20 04/04/19 25 04/05/2024 IRON AND TIBC UIBC 234 ug/dL 111-34 3 Not Available [facility] ([facility]) [address] [place], [address], 04/05/2024 06:19:20 04/04/19 25 04/05/2024 IRON AND TIBC iron 31 ug/dL 38-169 below low normal Not Available [facility] ([facility]) [address] [place], [address], 04/05/2024 06:19:20 04/04/19 25 04/05/2024 IRON AND TIBC iron saturation 12 % 15-55 below low normal Not Available [facility] ([facility]) [address] [place], [address], 04/05/2024 06:19:20 04/04/19 25 04/05/2024 STEPHY TIN ferritin 98 NG/mL 30-400 Not Available [facility] ([facility]) [address] [place], [address], 04/05/2024 06:19:22 04/04/19 25 04/04/2024 CBC WITH DIFFE RENTI AL/PL ATELE T WBC 7.5 x10e3 /uL 3.4-10 .8 Not Available [facility] ([facility]) [address] [place], [address], 04/05/2024 06:19:23 04/04/19 25 04/04/2024 CBC WITH DIFFE RENTI AL/PL ATELE T RBC 3.77 x10e6 /uL 4.14-5 .80 below low normal Not Available [facility] ([facility]) [address] [place], [address], 04/05/2024 06:19:23 04/04/19 25 04/04/2024 CBC WITH DIFFE RENTI AL/PL ATELE T hemoglobin 11.3 g/dL 13.0-1 7.7 below low normal Not Available [facility] ([facility]) [address] [facility], [place], [address], 04/05/2024 06:19:23 04/04/19 25 04/04/2024 CBC WITH DIFFE RENTI AL/PL ATELE T hematocrit 34.7 % 37.5-5 1.0 below low normal Not Available [facility] ([facility]) [address] [facility], [place], [address], 04/05/2024 06:19:23 04/04/19 25 04/04/2024 CBC WITH DIFFE RENTI AL/PL ATELE T MCV 92 fL 79-97 Not Available [facility] ([facility]) [address] [facility], [place], [address], 04/05/2024 06:19:23 04/04/19 25 04/04/2024 CBC WITH DIFFE RENTI AL/PL ATELE T MCH 30.0 pg 26.6-3 3.0 Not Available [facility] ([facility]) [address] [facility], [place], [address], 04/05/2024 06:19:23 04/04/19 25 04/04/2024 CBC WITH DIFFE RENTI AL/PL ATELE T MCHC 32.6 g/dL 31.5-3 5.7 Not Available [facility] ([facility]) [address] [place], [address], 04/05/2024 06:19:23 04/04/19 25 04/04/2024 CBC WITH DIFFE RENTI AL/PL ATELE T RDW 13.9 % 11.6-1 5.4 Not Available [facility] ([facility]) [address] [facility], [place], [address], 04/05/2024 06:19:23 04/04/19 25 04/04/2024 CBC WITH DIFFE RENTI AL/PL ATELE T platelets 468 x10e3 /uL 150-45 0 above high normal Not Available [facility] ([facility]) [address] [facility], [place], [address], 04/05/2024 06:19:23 04/04/19 25 04/04/2024 CBC WITH DIFFE RENTI AL/PL ATELE T neutrophils 64 % notest ab. Not Available [facility] ([facility]) [address] [facility], [place], [address], 04/05/2024 06:19:23 04/04/19 25 04/04/2024 CBC WITH DIFFE RENTI AL/PL ATELE T lymphs 16 % notest ab. Not Available [facility] ([facility]) [address] [facility], [place], [address], 04/05/2024 06:19:23 04/04/19 25 04/04/2024 CBC WITH DIFFE RENTI AL/PL ATELE T monocytes 13 % notest ab. Not Available [facility] ([facility]) [address] [facility], [place], [address], 04/05/2024 06:19:23 04/04/1904/04/2024 CBC WITH DIFFE RENTI AL/PL ATELE T eos 6 % notest ab. Not Available [facility] ([facility]) [address] [facility], [place], [address], 04/05/2024 06:19:23 04/04/1904/04/2024 CBC WITH DIFFE RENTI AL/PL ATELE T basos 1 % notest ab. Not Available [facility] ([facility]) [address] [place], [address], 04/05/2024 06:19:23 04/04/1904/04/2024 CBC WITH DIFFE RENTI AL/PL ATELE T neutrophils (absolute) 4.8 x10e3 /uL 1.4-7. 0 Not Available [facility] ([facility]) [address] [place], [address], 04/05/2024 06:19:23 04/04/19 25 04/04/2024 CBC WITH DIFFE RENTI AL/PL ATELE T lymphs (absolute) 1.2 x10e3 /uL 0.7-3. 1 Not Available [facility] ([facility]) [address] [facility], [place], [address], 04/05/2024 06:19:23 04/04/19 25 04/04/2024 CBC WITH DIFFE RENTI AL/PL ATELE T monocytes(ab solute) 1.0 x10e3 /uL 0.1-0. 9 above high normal Not Available [facility] ([facility]) [address] [facility], [place], [address], 04/05/2024 06:19:23 04/04/19 25 04/04/2024 CBC WITH DIFFE RENTI AL/PL ATELE T eos (absolute) 0.5 x10e3 /uL 0.0-0. 4 above high normal Not Available [facility] ([facility]) [address] [facility], [place], [address], 04/05/2024 06:19:23 04/04/19 25 04/04/2024 CBC WITH DIFFE RENTI AL/PL ATELE T baso (absolute) 0.1 x10e3 /uL 0.0-0. 2 Not Available [facility] ([facility]) [address] [place], [address], 04/05/2024 06:19:23 04/04/19 25 04/04/2024 CBC WITH DIFFE RENTI AL/PL ATELE T immature granulocytes 0 % notest ab. Not Available [facility] ([facility]) [address] [facility], [place], [address], 04/05/2024 06:19:23 04/04/19 25 04/04/2024 CBC WITH DIFFE RENTI AL/PL ATELE T immature grans (abs) 0.0 x10e3 /uL 0.0-0. 1 Not Available [facility] ([facility]) [address] [facility], [place], [address], 04/05/2024 06:19:23 04/04/19 25 04/04/2024 RETIC ULOCY TE COUNT reticulocyte count 3.6 % 0.6-2. 6 above high normal Not Available [facility] ([facility]) [address] [facility], [place], [address], 04/05/2024 06:19:24 04/07/19 25 04/08/2024 COLOF IT,OC CULT BLOOD ,FECA L,IA occult blood, fecal, ia NEGATI VE negati ve Not Available [facility] ([facility]) [address] [facility], [place], [address], 04/08/2024 12:46:49 04/07/19 25 04/07/2024 nonin vasiv e color ectal cance r DNA + occul t blood scree geni, narra tive, inter preta tion, stool fecal occult blood test negati ve Not Available Not Available 13:33:55 02/29/20 24 02/29/2024 XR, chest , 2 view No observ ation record ed. [address] [address], [place], [address], 03/06/2024 17:54:59 03/06/19 25 03/06/2024 XR, chest , 2 view No observ ation record ed. [address], [address], 03/11/2024 16:08:14 03/13/19 25 03/13/2024 XR, chest , 2 view No observ ation record ed. [address] [address], [place], [address], 03/13/2024 21:07:32 03/13/19 25 03/13/2024 CT, abdom en + pelvi s, w/o contr ast No observ ation record ed. [facility] [address], [place], [address], 03/14/2024 12:28:51 03/14/19 25 03/14/2024 US, renal No observ ation record ed. [address], [place], [address], 03/17/2024 14:01:09 05/09/19 25 elect lj martínezgr am No observ ation record ed. [place] [facility] Order Internal Use Only DO Not Attach Compendium DO Not Attach Compendium, Do Not Delete/merge, [id number] 05/08/2024 10:59:39 05/09/19 25 05/08/2024 XR, chest , 2 view No observ ation record ed. [facility] [address] [facility] [address], [place], [address], 05/08/2024 13:37:32 Result Notes None recorded. Problems Name Problem SNOMED Code Status Onset Date Resolution Date Notes Provider Name and Address Organization Details Recorded Time History of cerebrovasc ular accident 144868186 Active 2023 Lyle Hickman MD Attn: Terrance krishnan,[address] [place], [address], [place] [facility] 4 17:24:40 Chronic low back pain 574316511 Active 2023 Lyle Hickman MD Attn: Terrance krishnan,[address] [place], [address], [place] [facility] 4 17:24:41 Peripheral arterial occlusive disease 393424512 Active 2023 Lyle Hickman MD Attn: Terrance krishnan,[address] [facility], [place], [address], [place] [facility] 4 17:24:43 Seizure disorder 730082795 Active 2023 Lyle Hickman MD Attn: Terrance krishnan,[address] [place], [address], [place] [facility] 4 17:24:46 Hyperlipide kiara 46881697 Active 2023 Lyle Hickman MD Attn: Terrance krishnan,[address], [place], [address], [place] [facility] 4 17:24:50 Essential hypertensio n 85217895 Active 2023 Lyle Hickman MD Attn: Terrance krishnan,[address], [place], [address], [place] [facility] 4 17:24:54 Bilateral tinnitus 1715324065099 Active 2023 Lyle Hickman MD Attn: Terrance krishnan,[address], [place], [address], [place] [facility] 4 20:58:29 Overweight 840179675 Active 2023 Lyle Hickman MD Attn: Terrance krishnan,[address], [place], [address], [place] [facility] 4 20:58:30 Vitamin D below reference range 118508526 Active 2023 Lyle Hickman MD Attn: Terrance krishnan,[address], [place], [address], [place] [facility] 4 20:58:37 Dyspnea 824455444 Active 2024 Govind Grimes [place] null, [place] [facility] 5 11:08:09 Anemia 724878149 Active 2024 Govind Gr[place], [place] [facility] 5 11:08:10 Congestive heart failure 56447814 Active 2024 Govind Grimes [place] null, [place] [facility] 5 11:08:11 Problem Notes None recorded. Procedures Surgical History Date Name Laterality Status Provider Name and Address Organization Details Recorded Time Cataract surg w/iol 1 stage completed Lyric Orlando [place] [facility] 05/23/2023 11:31:27 Imaging Results Imaging Date Name Status LastModified by Organization Details LastModified Time 02/29/2024 XR, chest, 2 view completed [address], [address], 03/06/2024 17:54:59 03/06/2024 XR, chest, 2 view completed [address], [address], 03/11/2024 16:08:14 03/13/2024 XR, chest, 2 view completed [address], [address], 03/13/2024 21:07:32 03/13/2024 CT, abdomen + pelvis, w/o contrast completed [address], [address], 03/14/2024 12:28:51 03/14/2024 US, renal completed [address], [address], 03/17/2024 14:01:09 05/08/2024 electrocardiogram completed [place] [facility] Order Internal Use Only DO Not Attach Compendium DO Not Attach Compendium, Do Not Delete/merge, [id number] 05/08/2024 10:59:39 05/08/2024 XR, chest, 2 view active [address], [address], 05/08/2024 13:37:32 Procedure Notes None recorded. Medical Equipment None Reported. Allergies Allergen ID Allergen Name Allergen Category Reaction Reaction Severity Criticality Documentation Date Start Date Code Code System Note Provider Name and Address Organization Details Recorded Time 511411 amoxicill in medicatio n nausea mild Not [...] Updated DateTime 4 175.26 cm 23.5 kg/m2 91261.1 9 g 72 /min 98 % 98 % 118 mm[Hg] 64 mm[Hg] Tiesha English MA [facility] 4 11:27:29 Date Recorded Body height Body mass index (BMI) Body weight Heart rate Oxygen saturation Oxygen saturation in Arterial blood by Pulse oximetry Provider Name and Address Organization Details Last Updated DateTime 5 175.26 cm 20.5 kg/m2 04879.9 8 g 68 /min 98 % 98 % Ariana Porter [facility] 5 15:28:20 Date Recorded Body height Body mass index (BMI) Body weight Heart rate Oxygen saturation Oxygen saturation in Arterial blood by Pulse oximetry Systolic blood pressure Diastolic blood pressure Provider Name and Address Organization Details Last Updated DateTime 5 175.26 cm 21.6 kg/m2 38103.6 4 g 83 /min 98 % 98 % 124 mm[Hg] 68 mm[Hg] Tiesha English MA [facility] 5 16:04:22 Date Recorded Body height Body mass index (BMI) Body weight Heart rate Oxygen saturation Oxygen saturation in Arterial blood by Pulse oximetry Systolic blood pressure Diastolic blood pressure Provider Name and Address Organization Details Last Updated DateTime 5 175.26 cm 22.4 kg/m2 34200.2 4 g 83 /min 100 % 100 % 124 mm[Hg] 74 mm[Hg] Ariana German [facility] 5 11:48:37 Date Recorded Body height Body mass index (BMI) Body weight Heart rate Oxygen saturation Oxygen saturation in Arterial blood by Pulse oximetry Systolic blood pressure Diastolic blood pressure Provider Name and Address Organization Details Last Updated DateTime 5 175.26 cm 22.5 kg/m2 97962.4 g 157 /min 97 % 97 % 140 mm[Hg] 90 mm[Hg] Kristy Fairbanks MA [facility] 5 10:20:56 Social History Question Answer Notes LastModified by Organizat ion Details LastModified Time Tobacco Smoking Status Former Smoker Lyric Orlando MA null, [facility] 05/23/2023 11:29:45 Do You Have An Advance [...] Anxious, Or Unable To Sleep At Night)? [id number] Information not available 11/20/2023 Do You Use [...] available 0 05/23/2023 11:28:22 Mother Dementia [facility] Not availa ble 05/23/2023 11:28:31 Medical History Condition Response Coronary Artery Disease N Other N Atrial Fibrillation N High Blood Pressure Y Kidney or Bladder Problems N Depression Y COPD N Blood Clots N GI Problems N Skin Problems Y Anemia N Heart Attack ([place]) N Anxiety Disorder N Diabetes N Muscle, [...] split virus, quadrivalent, preservative 7 completed Tiesha English [place] null, [place] - [...] Influenza, adjuvanted, quadrivalent, PF 3 completed Tiesha English MA null, [...] 05/08/2024 10:18:32 influenza, unspecified formulation 4 completed CHAZ Rose, [place] - [facility] 01/22/2024 11:28:38 Past Encounters Encounter ID Performer Location Encounter Start Date Encounter Closed Date Diagnosis/Indication Diagnosis SNOMED-CT Code Diagnosis ICD10 Code Diagnosis Note [id number] Lyle Hickman MD [facility] (Adult Med) [address] [place] [address] 05/23/2023 11:05:24 05/23/2023 11:50:44 Essential hypertension 16388861 I10 Hyperlipidemia 73220608 E78.5 Screening for malignant neoplasm of prostate 427083802 Z12.5 Seizure disorder 5870422 02 G40.909 Peripheral arterial occlusive disease 170813291 I73.9 Chronic low back pain 27 0916491 M54.50 History of cerebrovascular accident 437894774 Z86.73 [id number] Lyle Hickman MD [facility] [place] [address] [place] [address] 10/01/2023 10:27:24 10/01/2023 11:00:54 Essential hypertension 11106326 I10 Long-term drug therapy 250886355 Z79.899 Screening for malignant neoplasm of prostate 972842263 Z12.5 Chronic low back pain 27 0544471 M54.50 Hyperlipidemia 08491464 E78.5 Peripheral arterial occlusive disease 025558294 I73.9 Seizure disorder 4756007 02 G40.040 [id number] MD Claudio Issa (Adult Med) [address] [place] [id number] 11/20/2023 11:52:02 11/20/2023 12:31:08 Overweight 490583566 E66.3 Bilateral tinnitus 66966 [address]2576 102 H93.13 Essential hypertension 68151285 I10 Chronic low back pain 27 9900229 M54.50 History of cerebrovascular accident 314435096 Z86.73 Hyperlipidemia 38412436 E78.5 Peripheral arterial occlusive disease 783927055 I73.9 Seizure disorder 6255072 02 G40.909 Vitamin D below reference range 369616901 E55.9 Osteoporosis 05771631 M8 1.0 [id number] [facility] [address] [place] [phone] 01/22/2024 11:14:30 01/22/2024 12:24:13 Body mass index 20-24 - normal 282671072 Z68.23 Essential hypertension 11305444 I10 Hyperlipidemia 78342350 E78.5 Vitamin D below reference range 924982116 E55.9 Chronic low back pain 27 5381713 M54.50 Peripheral arterial occlusive disease 228876371 I73.9 Seizure disorder 5684533 02 G40.415 [id number] MD Claudio Issa (Adult Med) [address] [place] [address] 03/12/2024 15:04:39 03/12/2024 16:21:54 Body mass index 20-24 - normal 761398145 Z68.23 Cough 58527879 R05.9 Low blood pressure 76436 003 I95.9 Low back pain 518595220 M54.50 Weight loss 30073681 R63 .4 [id number] MD Claudio Issa (Adult Med) [address] [place] [address] 03/19/2024 15:52:44 03/19/2024 16:57:49 Body mass index 20-24 - normal 418237548 Z68.21 Essential hypertension 84767533 I10 Acute kidney injury 1466 9001 N17.9 COVID-19 639185856 U07.1 [id number] MD Claudio Issa (Adult Med) [address] [place] [address] 04/09/2024 11:03:17 04/09/2024 12:08:31 Body mass index 20-24 - normal 187184015 Z68.21 Essential hypertension 80653646 I10 Hyperlipidemia 92809363 E78.5 Chronic low back pain 27 6924746 M54.50 Seizure disorder 6876341 02 G40.402 [id number] Govind Grimes MA [facility] [address] [place] [address] 05/08/2024 10:05:57 05/08/2024 11:07:29 Overweight 599072103 E66.3 Essential hypertension 30644802 I10 Dyspnea 664559581 R06.00 Anemia 774102523 D64.9 Congestive heart failure 17010291 I50.9 Health Concerns Section Related Observation LastModified by Organization Detai ls LastModified Time None Recorded Concern Status LastModified by Organization Details LastModified Time None Recorded Advance Directives Directive N: Payers Encounter Date Sequence Insurance Name Policy Number Policy Diaz Covered Member ID Diaz Member ID Guarantor Name 01/22/2024 1 [facility] (MEDICARE REPLACEMENT/A DVANTAGE - HMO) [id number] Lew Zaman Josr [id number] Lew Josr 03/12/2024 1 [facility] (MEDICARE REPLACEMENT/A DVANTAGE - HMO) [id number] Lew Zaman Josr [id number] Lew Josr 03/19/2024 1 [facility] (MEDICARE REPLACEMENT/A DVANTAGE - HMO) [id number] Lew Zaman Josr [id number] Lew Josr 04/09/2024 1 [employer] (MEDICARE REPLACEMENT/A DVANTAGE - HMO) [id number] Lew Ovalles [id number] Lew Ovalles Notes Date Note Type Note Provider Name and Address Organization Details Recorded Time 4 text/html low back pain has been stable peripheral arterial occlusive disease no claudication he has also had a carotid endarterectomy site and there is no TIA type symptomatology. Seizures doing fine no seizure disorder. Dyslipidemia [place] watch his diet he is take his atorvastatin without side effects. Good standing with the use a little lose a little bit of weight but he has had some trouble doing that smokes an occasional cigar still Lyle Hickman MD Attn: Accounting,[address] [facility], [place], [address], [facility] 01/26/2024 20:50:23 5 text/html cough congestion for a couple of weeks not getting any better he has lost some weight just feels bad with fatigue not coughing up any blood he is not dizzy on standing but he does tire easily Lyle Hickman MD Attn: Accounting,[address] [facility], [place], [address], [place] [facility] 03/16/2024 17:25:53 5 text/html patient [...] hydrochlorothiazide since admission Lyle Hickman MD Attn: Accounting,[address] [facility], [place], [address], [facility] - [facility] 03/19/2024 22:11:06 5 text/html short interval follow up his renal function has normalized he is going to start taking some iron for his anemia blood pressure is controlled he is not dizzy Lyle Hickman MD Attn: Accounting,[address] [place], [address], [place] [facility] 04/13/2024 18:25:56
--- OUTSIDE RECORDS SUMMARY | 2024-05-09 13:36 | XMS_ITS | Data Portability ---
Author Organization [place] [employer], Main Office Address [address] [place] [address] Care Team Providers Care Diving Board Assembler Name Role Phone LYLE HICKMAN Primary Care Provider LYLE HICKMAN Referring Provider Assessment Encounter Date Assessment Date Assessment LastModified by Organization Details LastModified Time 07/13/2022 07/13/2022 Secondary preventive measures for vascular disease discussed smoking cessation highly recommended ENT referral for chronic hearing loss continue current therapy follow-up in 4 months. Not available 07/15/2022 18:35:47 11/09/2022 11/09/2022 Continue current therapy will follow-up in 4 months [email or web address] Not available 11/27/2022 22:43:25 03/15/2023 03/15/2023 Will continue current therapy follow-up in 4 months [email or web address] Not available 04/06/2023 08:43:43 Plan of Treatment [...] Prieto MD, [address], [place], [address], 08:51:17 Procedures None recorded. Surgeries None recorded. Imaging MRI, internal auditory canal, w/wo contrast 2022 023 Formerly [facility], [address] [place] [address] , [place], [address], 17:46:51 Medication Orders None recorded. Patient TargetsNo [...] 139 mmol/ L 137-14 5 Not Available [facility] (Lab) [address] [place], [address], 07/28/2022 12:41:43 07/29/19 23 07/28/2022 COMPR EHENS FLAVIO METAB OLIC PANEL potassium 4.3 mmol/ L 3.5-5. 1 Not Available [facility] (Lab) [address] [place], [address], 07/28/2022 12:41:43 07/29/19 23 07/28/2022 COMPR EHENS FLAVIO METAB OLIC PANEL chloride 106 mmol/ L 98-107 Not Available [facility] (Lab) [address] [place], [address], 07/28/2022 12:41:43 07/29/19 23 07/28/2022 COMPR EHENS FLAVIO METAB OLIC PANEL carbon dioxide 22 mmol/ L 22-30 Not Available [facility] (Lab) [address] [place], [address], 07/28/2022 12:41:43 07/29/19 23 07/28/2022 COMPR EHENS FLAVIO METAB OLIC PANEL anion gap 15.3 mmol/ L 14-22 Not Available [facility] (Lab) [address] [place], [address], 07/28/2022 12:41:43 07/29/19 23 07/28/2022 COMPR EHENS FLAVIO METAB OLIC PANEL glucose 100 mg/dL 70-99 high Not Available [facility] (Lab) [address] [place], [address], 07/28/2022 12:41:43 07/29/19 23 07/28/2022 COMPR EHENS FLAVIO METAB OLIC PANEL BUN 22 mg/dL 8-19 high Not Available [facility] (Lab) [address] [place], [address], 07/28/2022 12:41:43 07/29/19 23 07/28/2022 COMPR EHENS FLAVIO METAB OLIC PANEL creatinine 1.05 mg/dL 0.66-1 .25 Not Available [facility] (Lab) [address] [place], [address], 07/28/2022 12:41:43 07/29/1907/28/2022 COMPR EHENS FLAVIO METAB OLIC PANEL GFR >60 Refer ence Range : Ramona ge GFR Healt hy Adult : >60 [...] s/kdo qi/gf r_cal culat or Not Available [facility] (Lab) [address] [place], [address], 07/28/2022 12:41:43 07/29/19 23 07/28/2022 COMPR EHENS FLAVIO METAB OLIC PANEL alkaline phosphatase 84 U/L 38-126 Not Available [facility] (Lab) [address] [place], [address], 07/28/2022 12:41:43 07/29/19 23 07/28/2022 COMPR EHENS FLAVIO METAB OLIC PANEL alanine aminotransfe rase 17 U/L 0-50 Not Available [facility] (Lab) [address] [place], [address], 07/28/2022 12:41:43 07/29/19 23 07/28/2022 COMPR EHENS FLAVIO METAB OLIC PANEL aspartate aminotransfe rase 22 U/L 15-46 Not Available [facility] (Lab) [address] [place], [address], 07/28/2022 12:41:43 07/29/19 23 07/28/2022 COMPR EHENS FLAVIO METAB OLIC PANEL bilirubin, total 0.30 mg/dL 0.20-1 .30 Not Available [facility] (Lab) [address] [place], [address], 07/28/2022 12:41:43 07/29/19 23 07/28/2022 COMPR EHENS FLAVIO METAB OLIC PANEL calcium 9.4 mg/dL 8.4-10 .2 Not Available [facility] (Lab) [address] [place], [address], 07/28/2022 12:41:43 07/29/19 23 07/28/2022 COMPR EHENS FLAVIO METAB OLIC PANEL total protein 6.7 g/dL 6.3-8. 2 Not Available [facility] (Lab) [address] [place], [address], 07/28/2022 12:41:43 07/29/19 23 07/28/2022 COMPR EHENS FLAVIO METAB OLIC PANEL albumin 4.1 g/dL 3.0-4. 4 Not Available [facility] (Lab) [address] [place], [address], 07/28/2022 12:41:43 07/29/19 23 07/28/2022 COMPR EHENS FLAVIO METAB OLIC PANEL globulin 2.6 g/dL 2.6-4. 2 Not Available [facility] (Lab) [address] [place], [address], 07/28/2022 12:41:43 07/29/1907/28/2022 COMPR EHENS FLAVIO METAB OLIC PANEL A/G ratio 1.6 ratio 1.0-2. 0 Not Available [facility] (Lab) [address] [place], [address], 07/28/2022 12:41:43 07/29/1907/28/2022 LIPID PANEL cholesterol 171 mg/dL 140-19 9 NIH MAGGIE NSUS RECOM MENDA TION FOR NORBERTO STERO L: ADULT CHILD LOW RISK: <200 <170 BORDE RLINE : <200- 239 ----- HIGH RISK: >240 >200 Not Available [facility] (Lab) [address] [place], [address], 07/28/2022 12:41:48 07/29/1907/28/2022 LIPID PANEL triglyceride s 107 mg/dL 0-150 NIH MAGGIE NSUS REPOR T RECOM MENDA TION FOR TRIGL YCERI KIMBERLI: ADULT CHILD LOW RISK: <150 ----- BODER LINE: 150-1 99 ----- HIGH RISK: >200 ----- Not Available [facility] (Lab) [address] [place], [address], 07/28/2022 12:41:48 07/29/1907/28/2022 LIPID PANEL HDL cholesterol 57 mg/dL 40- Not Available [facility] (Lab) [address] [place], [address], 07/28/2022 12:41:48 07/29/1907/28/2022 LIPID PANEL LDL cholesterol, [...] WILL NOT BE REPOR DAIJA. Not Available [facility] (Lab) [address] [place], [address], 07/28/2022 12:41:48 07/29/1907/28/2022 PSA SCREE N PSA medicare screen 0.62 NG/mL 0.00-4 .00 Not Available [facility] (Lab) [address] [place], [address], 07/28/2022 13:16:57 09/13/1909/12/2022 CREAT ININE , I-STA T creatinine 1.2 mg/dL 0.6-1. 3 Perfo rmed at: Teddy dsvil le [facility] [address] Teddy dsvil [facility] [address] Not Available [facility] (Lab) [address] [place], [address], 09/14/2022 11:53:27 09/13/19 23 MRI, inter nal audit ory canal , w/wo contr ast [facility] [address], [place] [address] Patien t Name: LEW HATHAWAY Access ion #: [id number] Sex: M : 1950 3 Dictat [...] at 2022 16:44: 40 PM Page [email or web address] (Imaging) [address] [facility], [place], [address], 09/15/2022 14:56:12 09/14/19 MRI, inter nal audit ory canal , w/wo contr ast No observ ation record ed. [address] [facility] [address] [place] [address] , [place], [address], 09/13/2022 10:11:01 09/19/19 MRI, inter nal audit ory canal , w/wo contr ast No observ ation record ed. [address] [facility] [address] [place] [address] , [place], [address], 09/18/2022 15:57:21 12/20/1912/19/2022 US, echoc ardio gram No observ ation record ed. [facility] [address], [place], [address], 02/05/2023 08:58:53 12/20/1912/19/2022 US, jose g x, carot id arter y No observ ation record ed. [facility] [address], [place], [address], 02/05/2023 08:59:06 02/29/20 23 02/28/2023 CT, brain , w/o contr ast No observ ation record ed. [address] [address], [place], [address], 03/09/2023 08:37:05 02/29/20 23 02/28/2023 CT, cervi linden spine , w/o contr ast No observ ation record ed. [address], [place], [address], 03/09/2023 08:37:15 02/29/20 23 02/28/2023 XR, knee No observ ation record ed. [address], [place], [address], 03/09/2023 08:37:23 02/29/20 23 02/28/2023 XR, elbow No observ ation record ed. [facility] [address], [place], [address], 03/09/2023 08:37:32 02/29/20 23 02/28/2023 XR, elbow No observ ation record ed. [facility] [address], [place], [address], 03/09/2023 08:37:47 10/08/19 24 10/08/2023 DEXA, axial skele ton [facility] [address] [place] [address] Patien t Name: LEW HATHAWAY Access ion #: [id number] Sex: M : 1950 0 Dictat ed By: Betsy Tracey Attend ing Physic ashlee: NADER HICKMAN [facility] Physic ashlee: NADER HICKMAN Exam Date: 2023 10:50 AM Exam Name: XR DEXA-H IPS PELVIS SPINE Admitt ing Diagno sis(es ): INDICA TION: 73 years old, Male; INTERMEDIATE DRUG THERAP Y. Osteop orosis screen ing, [...] [facility] [address] [place] [address] Patien t Name: LEW HATHAWAY Access ion #: [id number] Sex: M : 1950 0 Dictat [...] at 2023 12:41: 05 PM Page 2 [email or web address] [facility] (Imaging) [address] [place], [address], 11/15/2023 15:20:41 Result Notes None recorded. Problems Name Problem SNOMED Code Status Onset Date Resolution Date Notes Provider Name and Address Organization Details Recorded Time Hearing loss 74110884 Active 2022 Not Available [facility] 3 09:27:21 Asymmetrical sensorineural hearing loss 131929923 Active 2022 Not Available [facility] 3 09:27:21 Metatarsalgia 65897096 Active 2020 Not Available [facility] 3 09:27:21 Tobacco user 982276285 Active Not Available [facility] 3 09:27:21 Chronic back pain 394026101 Active Not Available [facility] 3 09:27:21 Hypercholeste rolemia 12947321 Active 2017 Not Available [facility] 3 09:27:21 Cataract 698320495 Active 2021 Not Available [facility] 3 09:27:21 Foot callus 297220566 Active 2020 Not Available [facility] 3 09:27:21 Pneumonia 561970493 Active 2017 Not Available [facility] 3 09:27:21 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 2020 Not Available [facility] 3 09:27:21 Symptom of skin and integumentary tissue 144119395 Active Not Available [facility] 3 09:27:21 Low back pain 014770725 Active Not Available [facility] 3 09:27:21 Dyslipidemia 435741592 Active Not Available [facility] 3 09:27:21 Arthritis 6605285 Active 2017 Not Available [facility] 3 09:27:21 Eosinophil count above reference range 349301846 Active Not Available [facility] 3 09:27:21 Peripheral arterial occlusive disease 312629463 Active Not Available [facility] 3 09:27:21 Porokeratosis 339912873 Active 2017 Not Available [facility] 3 09:27:21 Carotid artery doppler abnormal 086016246 Active Not Available [facility] 3 09:27:21 Numbness 72338325 Active Not Available [facility] 3 09:27:21 Essential hypertension 51350391 Active 2016 Not Available [facility] 3 09:27:21 Carotid artery stenosis 70055495 Active Not Available [facility] 3 09:27:21 Otitis media 39301081 Active Not Available [facility] 3 09:27:21 Pain in limb 67611224 Active Not Available [facility] 3 09:27:21 Fissure in skin 81525836 Active 2020 Not Available [facility] 3 09:27:21 Notes:back/neck problems, ca [...] 21 Colonoscopy with biopsy completed Not Available [facility] 05/03/2022 04:42:34 04/02/19 19 Cardiac Stent Placement completed Not Available [facility] 05/03/2022 04:42:34 11/24/19 06 Colonoscopy completed Not Available [facility] 05/03/2022 04:42:34 Knee Surgery completed Not Available [facility] 05/03/2022 04:42:34 Back Surgery completed Not Available [facility] 05/03/2022 04:42:34 Cardiac Stent Placement completed Not Available [facility] 05/03/2022 04:42:34 Carotid Endarterectomy completed Not Available [facility] 05/03/2022 04:42:34 Knee Surgery completed Not Available [facility] 05/03/2022 04:42:34 Cataract Surgery completed Not Available [facility] 05/03/2022 04:42:34 Removal of adenoids completed Usha Rodas RN [place] [facility] [place] [employer] [facility] 08/25/2022 11:12:15 Imaging Results Imaging Date Name Status LastModified by Organization Details LastModified Time 09/12/2022 MRI, internal auditory canal, w/wo contrast completed [email or web address] [facility] (Imaging) [address] [place], [address], 09/15/2022 14:56:12 09/13/2022 MRI, internal auditory canal, w/wo contrast completed [email or web address] [facility] [address] [place] [address] , [place], [address], 09/13/2022 10:11:01 09/18/2022 MRI, internal auditory canal, w/wo contrast completed [email or web address] [facility] [address] [place] [address] , [place], [address], 09/18/2022 15:57:21 12/19/2022 US, echocardiogram completed [facility] [address], [place], [address], 02/05/2023 08:58:53 12/19/2022 US, duplex, carotid artery completed [facility] [address], [place], [address], 02/05/2023 08:59:06 02/28/2023 CT, brain, w/o contrast completed [address], [address], 03/09/2023 08:37:05 02/28/2023 CT, cervical spine, w/o contrast completed [address], [address], 03/09/2023 08:37:15 02/28/2023 XR, knee completed [address], [address], 03/09/2023 08:37:23 02/28/2023 XR, elbow completed [address], [address], 03/09/2023 08:37:32 02/28/2023 XR, elbow completed [address], [address], 03/09/2023 08:37:47 10/08/2023 DEXA, axial skeleton completed [email or web address] [facility] (Imaging) [address] [place], [address], 11/15/2023 15:20:41 Procedure Notes None recorded. Medical [...] Not Available Not Available Not Available Fluvirin 9006-6127 45 mcg (15 mcg x 3)/0.5 mL intramuscul ar suspension active Not Available Not Available N ot Available Fluzone Quad 2356-4399 60 mcg (15 mcg x 4)/0.5 mL IM suspension active Not Available Not Available N ot Available Fluvirin 5008-5583 45 mcg (15 mcg x 3)/0.5 mL intramuscul ar suspension active Not Available Not Available N ot Available Fluzone Quad 0639-7744 60 mcg (15 mcg x 4)/0.5 mL IM suspension 04/04 completed Not Available Not Available Not Available Fluzone Quad 0877-3597 60 mcg (15 mcg x 4)/0.5 mL IM suspension 03/27 completed Not Available Not Available Not Available Fluzone High-Dose 0061-7714 (PF) 180 mcg/0.5 mL intramuscul ar syringe [...] kg/m2 171.45 cm 71 /min 98.5 [degF] 05796.1 1 g 136 mm[Hg] 72 mm[Hg] Not Available [facility] 3 04:43:20 Date Recorded Body height Body weight Body temperature Heart rate Oxygen saturation Oxygen saturation in Arterial blood by Pulse oximetry Systolic blood pressure Diastolic blood pressure Provider Name and Address Organization Details Last Updated DateTime 3 171.45 cm 67390.7 g 96.9 [degF] 69 /min 97 % 97 % 124 mm[Hg] 78 mm[Hg] Cathy Moise RN [place] [employer] 3 11:28:25 Date Recorded Body height Body mass index (BMI) Body weight Body temperature Provider Name and Address Organization Details Last Updated DateTime 08/29/2022 171.45 cm 26.1 kg/m2 88806.11 g 97.6 [degF] Shanna Frances CMA [employer] 08/29/2022 12:04:43 Date Recorded Body height Body mass index (BMI) Body weight Body temperature Heart rate Systolic blood pressure Diastolic blood pressure Provider Name and Address Organization Details Last Updated DateTime 3 171.45 cm 25.6 kg/m2 12167.3 3 g 97.4 [degF] 74 /min 130 mm[Hg] 78 mm[Hg] DARINEL Evangelista [employer] 3 11:43:42 Date Recorded Body height Body mass index (BMI) Body weight Body temperature Heart rate Systolic blood pressure Diastolic blood pressure Provider Name and Address Organization Details Last Updated DateTime 4 171.45 cm 25.5 kg/m2 96586.7 4 g 97.7 [degF] 81 /min 118 mm[Hg] 88 mm[Hg] DARINEL Evangelista [employer] 4 10:54:29 Social History Question Answer Notes LastModified by Organization Details LastModified Time Tobacco Smoking Status Current Every Day Smoker Usha Rodas RN [facility], [place] - [facility] 08/25/2022 11:12:01 Do You Have An Advance Directive? No MIGRATION.030 [id number] Information not available 05/03/2022 What Is Your Level Of Alcohol Consumption? Moderate MIGRATION.030 774401 Information not available 05/03/2022 Are You Blind Or Do You Have Difficulty Seeing? No MIGRATION.030 654203 Information not available 05/03/2022 What Is Your Level Of Caffeine Consumption? None MIGRATION.030 074923 Information not available 05/03/2022 How Much Tobacco Do You Chew? None MIGRATION.030 401066 Information not available 05/03/2022 In The 14 Days Before Symptom Onset, Have You Had Close Contact With A Laboratory-confi rmed COVID-19 While That Case Was Ill? No MIGRATION.030 875609 Information not available 05/03/2022 In The 14 Days Before Symptom Onset, Have You Had Close Contact With A Person Who Is Under Investigation For COVID-19 While That Person Was Ill? No MIGRATION.030 854208 Information not available 05/03/2022 Are You Currently Employed? Yes [email or web address] Information not available 07/13/2022 Are You Deaf Or Do You Have Serious Difficulty Hearing? Yes Hearing Aids MIGRATION.030 629518 Information not available 05/03/2022 What Type Of Diet Are You Following? REGULAR MIGRATION.030 614700 Information not available 05/03/2022 Which Illicit Or Recreational Drugs Have You Used? None MIGRATION.030 718990 Information not available 05/03/2022 Do You Or Have You Ever Used E-cigarettes Or Vape? Current User Of Electronic Cigarettes Vape MIGRATION.030 872370 Information not available 05/03/2022 What Is The Highest Grade Or Level Of School You Have Completed Or The Highest Degree You Have Received? 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 No MIGRATION.030 457695 Information not available 05/03/2022 What Is The Fluoride Status Of Your Home? Unknown MIGRATION.0301 312491 Information not available 05/03/2022 Are There Any Guns Present In Your Home? Yes MIGRATION.0301 715122 Information not available 05/03/2022 Do You Use Insect Repellent Routinely? No MIGRATION.0301 358475 Information not available 05/03/2022 Where Do You Live? [place]House MIGRATION.0301 488211 Information not available 05/03/2022 Do You Have A Medical Power Of Construction Supervisor/Carpenter? No MIGRATION.0301 636216 Information not available 05/03/2022 What Was The Date Of Your Most Recent Tobacco Screening? 03/15/2023 [email or web address] Information not available 03/15/2023 Have You Ever Been Counseled For Unhealthy Alcohol Use? No MIGRATION.0301 582731 Information not available 05/03/2022 Do You Have Any Pets? Yes MIGRATION.0301 446117 Information not available 05/03/2022 What Is Your Relationship Status? MIGRATION.0301 740787 Information not available 05/03/2022 Do You Use Your Seat Belt Or Car Seat Routinely? Yes MIGRATION.0301 155989 Information not available 05/03/2022 Do You Have Smoke And Carbon Monoxide Detectors In Your Home? Yes MIGRATION.0301 344263 Information not available 05/03/2022 Are You Passively Exposed To Smoke? Yes MIGRATION.0301 140239 Information not available 05/03/2022 Do You Or Have You Ever Used Smokeless Tobacco? Never Used Smokeless Tobacco MIGRATION.0301 444911 Information not available 05/03/2022 Are There Any Smokers In Your House? No MIGRATION.0301 792948 Information not available 05/03/2022 What Types Of Sporting Activities Do You Participate In? None MIGRATION.0301 790867 Information not available 05/03/2022 Do You Feel Stressed (tense, Restless, Nervous, Or Anxious, Or Unable To Sleep At Night)? BP77600-1 MIGRATION.0301 675428 Information not available 05/03/2022 Do You Use Any Illicit Or Recreational Drugs? No MIGRATION.0301 885781 Information not available 05/03/2022 Do You Use Sunscreen Routinely? No MIGRATION.0301 519084 Information not available 05/03/2022 Has Tobacco Cessation Counseling Been Provided? No MIGRATION.0301 283493 Information not available 05/03/2022 Have You Recently Traveled Abroad? No MIGRATION.0301 304657 Information not available 05/03/2022 Do You Have Any Dietary Restrictions? No MIGRATION.0301 339806 Information not available 05/03/2022 Do You Or Have You Ever Used Any Other Forms Of Tobacco Or Nicotine? Yes MIGRATION.0301 516228 Information not available 05/03/2022 Sex: Male Functional Status Question Answer Note LastModified by [employer] Details LastModified Time Do you have difficulty walking or climbing stairs? Yes MIGRATION.[id number] 026 Information not available 05/03/2022 Do you have transportation difficulties? No MIGRATION.5886196 026 Information not available 05/03/2022 Are you able to walk? YESWOREST MIGRATION.4614123 026 Information not available 05/03/2022 Do you have difficulty doing errands alone? No MIGRATION.5684001 026 Information not available 05/03/2022 Are you able to care for yourself? Yes MIGRATION.8373407 026 Information not available 05/03/2022 Do you have difficulty dressing or bathing? No MIGRATION.2963679 026 Information not available 05/03/2022 What is your exercise level? None MIGRATION.4934303 026 Information not available 05/03/2022 Mental Status Question Answer Note LastModified by [employer] Details LastModified Time Do you have difficulty concentrating, remembering or making decisions? No MIGRATION.[id number] 6 Information not available 05/03/2022 Family History Relationship Description Onset Age of this Age Resolved Age Notes LastModified by Organization Details LastModified Time Father Heart failure MIGRATION.169 [id number] Not available 05/03/2022 04:42:35 Father Malignant neoplastic disease MIGRATION.712 [id number] Not available 05/03/2022 04:42:35 Mother Cerebrovascu lar accident MIGRATION.646 [id number] Not available 05/03/2022 04:42:35 Notes:NO ENT Medical History Condition Response NERVE DISEASE N BLINDNESS N RHEUMATIC FEVER N KIDNEY STONES N BLADDER PROBLEMS N MRSA N OTHER # 1 N POLIO N LUNG DISEASE/DISORDER N RADIATION / CHEMOTHERAPY N COPD N Other # 2 N BLOOD DISEASES N EAR OR HEARING PROBLEMS N MUMPS N DEPRESSION (INCLUDING POST ) N BOWEL PROBLEMS N STROKE/TIA Y ULCERS N BENIGN PROSTATIC HYPERPLASIA N MEASLES N MYOCARDIAL INFARCTION N OBESITY N GERD/NAUSEA N ANEURYSM N URINARY/BLADDER/KIDNEY PROBLEMS N CORONARY ARTERY DISEASE (CAD) Y ADDICTION CONCERNS N Impotence N ENDOMETRIOSIS N USE OF BLOOD THINNERS N SKIN [...] APNEA N CHICKENPOX N INFECTIOUS DISEASE N PROSTATE N HEART ARRHYTHMIA N INSOMNIA N HIGH CHOLESTEROL / HYPERLIPIDEMIA Y HYPERTHYROIDISM N EYE PROBLEMS N EDEMA N CHRONIC PAIN SYNDROME N HYPOTHYROIDISM N CONSTIPATION N CAROTID BLOCKAGE Y BACK / NECK PROBLEMS Y HAVE YOU BEEN HOSPITALIZED OR SEEN IN [facility] IN THE PAST YEAR ? N ATHEROSCLEROSIS N BREAST PROBLEMS N DIALYSIS N ECZEMA N OSTEOPOROSIS N ARTHRITIS N APPENDICITIS N DIABETES, TYPE N BAD TEETH N ENT N HEARTBURN / REFLUX N AUTISM SPECTRUM DISORDER (ASD) N HEPATITIS / LIVER DISEASE N GOUT N SLEEP DISORDER N ALZHEIMER'S DISEASE N Brain Problems N HERPES N DEMENTIA N SEIZURES/EPILEPSY N HEADACHES/MIGRAINES N VASCULAR DISEASE N PACEMAKER N Blood Disorder N DIZZINESS N KIDNEY DISEASE N HEART DISEASE/HEART PROBLEMS N MULTIPLE SCLEROSIS N CARDIAC ARRHYTHMIA N CANCER: SPECIFY N Gall Stones N ATRIAL FIBRILLATION N PULMONARY EMBOLISM N AUTOIMMUNE DISEASE N Immunizations Vaccine Type Date Status Note Provider Nam e and Address Organization Details Recorded Time SARS-COV-2 (COVID-19) vaccine, UNSPECIFIED 3 completed DARINEL King, [facility] [employer] 10/23/2022 10:09:13 influenza, unspecified formulation 3 completed DARINEL King [employer] [facility] [employer] 10/23/2022 10:09:27 Respiratory syncytial virus (RSV) MAB, unspecified 3 completed DARINEL King, [facility] 02/08/2023 09:29:08 SARS-COV-2 (COVID-19) vaccine, UNSPECIFIED 3 completed DARINEL King [facility] 02/08/2023 09:29:17 zoster, unspecified formulation 3 completed DARINEL iKng, [facility] 02/08/2023 09:29:27 COVID-19, mRNA, LNP-S, PF, 30 mcg/0.3 mL dose 1 completed Not Available [facility] 09/25/2022 02:31:00 COVID-19, mRNA, LNP-S, PF, 30 mcg/0.3 mL dose 1 completed Not Available [facility] 09/25/2022 02:31:00 COVID-19, mRNA, LNP-S, PF, 30 mcg/0.3 mL dose 1 completed Not Available [facility] 09/25/2022 02:31:00 Influenza, high-dose, quadrivalent, PF 0 completed Not Available [facility] 09/25/2022 02:31:00 pneumococcal polysaccharide PPV23 0 completed Not Available [facility] 09/25/2022 02:31:00 Influenza, high-dose, trivalent, PF 9 completed Not Available [facility] 09/25/2022 02:31:00 Pneumococcal conjugate PCV 13 9 completed Not Available [facility] 09/25/2022 02:31:00 influenza, unspecified formulation 8 completed Not Available [facility] 09/25/2022 02:31:00 Influenza, split virus, quadrivalent, preservative 7 completed Not Available [facility] 09/25/2022 02:31:00 Influenza, high-dose, trivalent, PF 2 completed Not Available [facility] 09/25/2022 02:31:00 pneumococcal polysaccharide PPV23 2 completed Not Available [facility] 09/25/2022 02:31:00 COVID-19, mRNA, LNP-S, PF, 30 mcg/0.3 mL dose 2 completed Not Available [facility] 09/25/2022 02:31:00 COVID-19, mRNA, LNP-S, PF, 30 mcg/0.3 mL dose 2 completed Not Available [facility] 09/25/2022 02:31:00 Influenza, high-dose, trivalent, PF 1 completed Not Available [facility] 09/25/2022 02:31:00 Influenza, split virus, trivalent, preservative 6 completed Not Available [facility] 09/25/2022 02:31:00 zoster live 6 completed Not Available [facility] 09/25/2022 02:31:00 influenza, unspecified formulation 4 completed Not Available [facility] 09/25/2022 02:31:00 Past Encounters Encounter ID Performer Location Encounter Start Date Encounter Closed Date Diagnosis/Indication Diagnosis SNOMED-CT Code Diagnosis ICD10 Code Diagnosis Note [id number] [facility] [place] Briseno, [place] [address] 07/20/2020 00:00:00 07/20/2020 22:35:11 [id number] [facility] [place] [address] [place] [address], [address] [address] 10/07/2020 00:00:00 10/19/2020 10:35:07 [id number] [facility] [place] [address] [place] [address] Rd, [address] [address] 10/14/2020 00:00:00 10/14/2020 12:17:43 [id number] [facility] [place] [address] [place] [address] Rd, [address] [address] 10/22/2020 00:00:00 10/22/2020 11:56:52 [id number] [facility] Pola Briseno, [place] [address] 12/02/2020 00:00:00 12/24/2020 22:03:34 [id number] [facility] [place] [address] [place] [address], [address] [address] 01/20/2021 00:00:00 01/20/2021 13:01:41 [id number] [facility] [place] [address] [facility] y , [place] [address] 03/24/2021 00:00:00 03/24/2021 22:58:21 [id number] [facility] [place] [address] [facility] y , [place] [address] 07/14/2021 00:00:00 08/17/2021 21:51:08 [id number] [facility] [place] [address] [place] [address] y , [place] [address] 11/10/2021 00:00:00 11/20/2021 12:09:51 [id number] [facility] [place] [address] [facility] y , [place] [address] 03/16/2022 00:00:00 03/16/2022 23:40:22 [id number] Lyle Hickman MD [facility] [place] [address] [place] [address] y , [place] [address] 07/13/2022 11:16:45 07/13/2022 12:39:48 Essential hypertension 57044974 I10 Screening for malignant neoplasm of prostate 809510970 Z12.5 Hearing loss 79674623 H9 1.93 Carotid ar leticia stenosis 19640953 I65.29 Chronic back pain 309311 002 M54.9 Dyslipidemia 485759982 E 78.5 Tobacco user 408829331 Z 72.0 Peripheral arterial occlusive disease 724238947 I73.9 [id number] Veronica Prieto MD [facility] [place] [address] [place] [address] 08/29/2022 11:42:31 08/31/2022 17:59:05 Asymmetrical sensorineural hearing loss 395647431 H90.5 [id number] Lyle Hickman MD [facility] [place] [address] [place] [address] [place] [address] 11/09/2022 11:25:15 11/09/2022 12:23:34 Hypercholesterolemia 68548274 E78.00 Essential hypertension 03648694 I10 Peripheral arterial occlusive disease 548264245 I73.9 Tobacco user 501973000 Z 72.0 Carotid ar leticia stenosis 52049643 I65.29 [id number] Lyle Hickman MD [facility] [address] [facility] , [place] [address] 03/15/2023 10:45:56 03/15/2023 12:13:49 Dyslipidemia 144658451 E78.5 Essential hypertension 88051437 I10 Chronic back pain 428424 002 M54.9 Peripheral arterial occlusive disease 008555244 I73.9 Tobacco user 434498603 Z 72.0 Health Concerns Section Related Observation LastModified by Organization Detai ls LastModified Time None Recorded Concern Status LastModified by Organization Details LastModified Time None Recorded Advance Directives Directive N: Payers Encounter Date Sequence Insurance Name Policy Number Policy Diaz Covered Member ID Diaz Member ID Guarantor Name 07/13/2022 1 [employer] - AARP - MEDICARE COMPLETE PLAN 1 (MEDICARE REPLACEMENT HMO) [id number] Lew A Josr [id number] Lew Josr 08/29/2022 1 [employer] - AARP - MEDICARE COMPLETE PLAN 1 (MEDICARE REPLACEMENT HMO) [id number] Lew A Josr [id number] Lew Josr 11/09/2022 1 [employer] - AARP - MEDICARE COMPLETE PLAN 1 (MEDICARE REPLACEMENT HMO) [id number] Lew A Josr [id number] Lew Josr 03/15/2023 1 [employer] - AARP - MEDICARE COMPLETE PLAN 1 (MEDICARE REPLACEMENT HMO) [id number] Lew A Josr [id number] Lew Josr Notes Date Note Type Note Provider Name and Address Organization Details Recorded Time 3 text/html said some hearing loss is been chronichypertension no headache or dizzinesscarotid artery stenosis no TIA or stroke symptomschronic back pain stabledyslipidemia could do better with reduced saturated fatcontinues to use cigars Lyle Hickman MD [address] [place] [address] Flor, [facility] [address], [place], [address], [facility] [employer] [facility] 07/15/2022 18:36:08 3 text/html this patient has hearing loss and had an audiogram demonstrating severe high-frequency hearing loss bilaterally but with significantly different speech recognition scores between the right left side. The left side was much lower. Veronica Prieto MD [address], [place], [address], [facility] [employer] [facility] 08/29/2022 12:26:28 3 text/html said some hearing loss is been chronichypertension no headache or dizzinesscarotid artery stenosis no TIA or stroke symptomschronic back pain stabledyslipidemia could do better with reduced saturated fatcontinues to use cigars Lyle Hickman MD [address], [place], [address], [facility] [employer] [facility] 11/27/2022 22:43:42 4 text/html said some hearing loss is been chronichypertension no headache or dizzinesscarotid artery stenosis no TIA or stroke symptomschronic back pain stabledyslipidemia could do better with reduced saturated fatcontinues to use cigarsInterval history of mechanical fall ER veronica doing better Lyle Hickman MD [address], [place], [address], [facility] [employer] [facility] 04/06/2023 08:44:02
--- OUTSIDE RECORDS SUMMARY | 2024-05-09 13:59 | XMS_ITS | Clinical Summary ---
Author Organization [facility] [facility] Address [address] [place] [address] Care Team Providers Care Biofuels Research Scientist Name Role Phone Andre Hickman MD Primary Care Provider [phone] Allergies No known active allergies Medications aspirin [...] 03/15/2020 Assessment & Plan (03/15/2020 12:50 PM DRYING CAN WORKER): Patient is a former patient at [facility]. 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 He currently is on aspirin for cerebrovascular prophylaxis in addition to anti lipid antihypertension medications. Resolved Problems Problem Noted Date Diagnosed Date Resolved Date Cerebrovascular accident (CVA) 04/04/2024 Overview (03/31/2022): Stroke Encounters Date Type Department Care Team Description 04/04/2024 8:30 AM DRYING CAN WORKER Office Visit [facility] [address] [place] [address] Andre Newton MD Partial symptomatic epilepsy [...] on file Legal Sex Male 12:05 PM DRYING CAN WORKER Gender Identity Not on file Sexual Orientation Not on file Obstetrics History Last Filed Vital Signs Vital Sign Reading Time Taken Comments Blood Pressure 149/90 04/04/2024 8:22 AM DRYING CAN WORKER Pulse 90 04/04/2024 8:22 AM DRYING CAN WORKER Temperature 36.7 C (98 F) 03/15/2020 11:42 AM DRYING CAN WORKER Respiratory Rate 18 04/04/2023 8:09 AM DRYING CAN WORKER Oxygen Saturation 97% 04/04/2024 8:22 AM DRYING CAN WORKER Inhaled Oxygen Concentration - - Weight 68.8 kg (151 lb 9.6 oz) 04/04/2024 8:22 A M DRYING CAN WORKER Height 175.3 cm (5' 9.02 ) 04/04/2024 8:22 AM CS T Body Mass Index 22.38 04/04/2024 8:22 AM DRYING CAN WORKER Plan of Treatment Health Maintenance Due Date [...] vaccine 65+ Completed 022, 11/22/2019, 11/23/2018 Insurance [facility] MDCR HMO REF [facility] MDCR HMO REF Care Teams Biofuels Research Scientist Relationship Specialty Start Date End Date Andre Hickman MD PCP - General 10/18/10
--- OUTSIDE RECORDS SUMMARY | 2024-05-09 13:59 | XMS_ITS | Encounter Summary ---
Author Organization [facility] Address [address] [place] [address] Phone Care Team Providers Care Education And Training Coordinator Name Role Phone Andre Hickman MD Primary Care Provider [phone] Encounter Details Date Type Department Care Team (Late st Contact Info) Description 05/17/2017 Orders Only [facility] ProviderLeila MD [address] [place] [address] Social History Tobacco Use Types Packs/Day Years Used Date Smoking Tobacco: Never Assessed Alcohol Use Standard Drinks/Week Comments Yes 0 (1 standard drink = 0.6 oz pur e alcohol) Sex and Gender Information Value Date Recorded Sex Assigned at Not on file Legal Sex Male 12:05 PM SKATING CARHOP Gender Identity Not on file Sexual Orientation [...] on filedocumented in this encounter Care Teams Education And Training Coordinator Relationship Specialty Start Date End Date Andre Hickman MD PCP - General 10/18/10 documented as of this encounter
--- OUTSIDE RECORDS SUMMARY | 2024-05-09 13:59 | XMS_ITS | Clinical Summary ---
Author Organization [facility] Address [address] [place] [address] Care Team Providers Care Lead Coater Name Role Phone Unavailable Primary Care Provider Unavailabl e Source Comments [facility],non-owned Affiliates and Associated Physician Practices is amultiple site organization consisting of ambulatory clinics and hospital sitesin [place], [place], [place] and [place]. This disclosure is being madepursuant to the Care Everywhere program and may not contain all information available regarding this patient. Last updated 17.[facility] [employer] Social History Tobacco Use Types Packs/Day Years [...]
--- OUTSIDE RECORDS SUMMARY | 2024-05-09 13:59 | XMS_ITS | Referral Summary ---
Author Organization [facility] Address [address] [facility] [place] [address] Care Team Providers Care Management And Budget Analyst Name Role Phone Unavailable Primary Care Provider Unavailabl e Source Comments [facility],non-owned Affiliates and Associated Physician Practices is amultiple site organization consisting of ambulatory clinics and hospital sitesin [place], [place], [place] and [place]. This disclosure is being madepursuant to the Care Everywhere program and may not contain all information available regarding this patient. Last updated 17.[facility] [employer] Social History Tobacco Use Types Packs/Day Years [...]
--- OUTSIDE RECORDS SUMMARY | 2024-05-09 13:59 | XMS_ITS | Referral Summary ---
Author Organization [facility] [facility] Address [address] [place] [address] Care Team Providers Care Medical Billing Supervisor Name Role Phone Andre Hickman MD Primary Care Provider Encounters Date Type Department Care Team Description 04/04/2024 8:30 AM SIGN LANGUAGE INSTRUCTOR Office Visit [facility] [address] [facility] [address] [place] [address] Andre Newton MD Partial symptomatic epilepsy with [...] 03/15/2020 Assessment & Plan (03/15/2020 12:50 PM SIGN LANGUAGE INSTRUCTOR): Patient is a former patient at [facility]. [facility] from [facility] [...] 03/15/2020 Assessment & Plan (03/15/2020 12:50 PM SIGN LANGUAGE INSTRUCTOR): Patient has history of prior ischemic cerebral [...] on file Legal Sex Male 12:05 PM SIGN LANGUAGE INSTRUCTOR Gender Identity Not on file Sexual Orientation Not on file Last Filed Vital Signs Vital Sign Reading Time Taken Comments Blood Pressure 149/90 04/04/2024 8:22 AM SIGN LANGUAGE INSTRUCTOR Pulse 90 04/04/2024 8:22 AM SIGN LANGUAGE INSTRUCTOR Temperature 36.7 C (98 F) 03/15/2020 11:42 AM SIGN LANGUAGE INSTRUCTOR Respiratory Rate 18 04/04/2023 8:09 AM SIGN LANGUAGE INSTRUCTOR Oxygen Saturation 97% 04/04/2024 8:22 AM SIGN LANGUAGE INSTRUCTOR Inhaled Oxygen Concentration - - Weight 68.8 kg (151 lb 9.6 oz) 04/04/2024 8:22 A M SIGN LANGUAGE INSTRUCTOR Height 175.3 cm (5' 9.02 ) 04/04/2024 8:22 AM CS T Body Mass Index 22.38 04/04/2024 8:22 AM SIGN LANGUAGE INSTRUCTOR Plan of Treatment Not on file Insurance [facility] Address: [address] [place], [place] [id number] HMO REF [facility] Address: [address] [address] [place] [address] Care Teams Medical Billing Supervisor Relationship Specialty Start Date End Date Andre Hickman MD [facility] - General 10/18/10
--- OUTSIDE RECORDS SUMMARY | 2024-05-09 13:59 | XMS_ITS | CONTINUITY OF CARE DOCUMENT ---
Author Name maribell reyna Address Unknown Organization [facility] Address [address] [facility] [address] [place] [address] Phone [phone] Care Team Providers Care Citrix Lead Name Role Phone Joao MENJIVAR, Lele Unavailable LYLE YING MD Unavailable [phone] LYLE YING MD Unavailable PROBLEMS Condition Status Date Provider Notes Hyperlipidemia, unspecified active Marcela kelly microfilm duplicating unit supervisor History of CVA or Stroke: active ? aDvon Shepherd MD PVD active eLle Shepherd MD Carotid artery disease active Lele [...] In-person encounter Office Visit Lele Shepherd MD [facility] - In-person encounter Office Visit Lele Shepherd MD [facility] - In-person encounter Office Visit Lele Shepherd MD [facility] - In-person encounter Office Visit Lele Shepherd MD [facility] - In-person encounter Office Visit Lele Shepherd MD [facility] - In-person encounter Office Visit Lele Shepherd MD [facility] - In-person encounter Office Visit Lele Shepherd MD [facility] - In-person encounter Office Visit Lele Shepherd MD [facility] - In-person encounter Office Visit Lele Shepherd MD [facility] - In-person encounter Office Visit Lele Shepherd MD [facility] - In-person encounter Office Visit Lele Shepherd MD [facility] - In-person encounter Office Visit Lele Shepherd MD [facility] - In-person encounter Office Visit Lele Shepherd MD [facility] - In-person encounter Office Visit Lele Shepherd MD [facility] Family History of CVA or Stroke:PVDCarotid [...] blood pressure, diastolic 62 mm[Hg] Ca therine [place] blood pressure, systolic 110 mm[Hg] Cat herine [place] oxygen saturation, oximetry 97 % Evonne [place] respiratory rate E&M 16 /min Catheri ne Riaz pulse rate 86 /min Evonne [place] weight E&M 169 [lb_av] Evonne [place] blood pressure, cuff size large Ca therine Riaz height E&M 68 [in_i] Evonne [place] Body Mass Index (Ratio) 25.54 kg/m2 Sam [...] Petra Erika height E&M 68 [in_i] Petra [place] Body Mass Index (Ratio) 25.85 kg/m2 Sam [...] Ren Waters weight E&M 173 [lb_av] Jovana Lnio lder blood pressure, diastolic 76 mm[Hg] Chang [...] 0-149 4 cholesterol, serum 164 mg/dL [employer] [phone]/03/0 4 calcium, serum 9.5 mg/dL [employer] 8.6-10.2 4 carbon dioxide, venous blood 20 mmol/L [employer] 20-29 4 chloride, serum 103 mmol/L [employer] 96-106 4 potassium, serum 4.1 mmol/L [employer] 3.5-5.2 4 sodium, serum 143 mmol/L [employer] [phone]/03/0 4 urea nitrogen/creatinin e ratio, serum 16 [...] Estab. 4 platelet count 367 X10E3/UL [employer] [phone]/03/0 4 red blood cell distribution width 12.6 [...] 0-149 7 cholesterol, serum 171 mg/dL [employer] [phone]/11/0 7 calcium, serum 9.5 mg/dL [employer] 8.6-10.2 7 carbon dioxide, venous blood 16 mmol/L [employer] 20-29 Low 7 chloride, serum 106 mmol/L [employer] 96-106 7 potassium, serum 4.1 mmol/L [employer] 3.5-5.2 7 sodium, serum 140 mmol/L [employer] 246-281 9363/11/0 7 urea nitrogen/creatinin e ratio, serum 16 [...] MD drug use no Alfreda Ventimig ladonna [facility] alcohol use, type beer Alfreda Theo timiglia [facility] alcohol use, average drinks per day 2 /d Alfreda Ventimiglia [facility] alcohol use yes Alfreda Ventimig ladonna [facility] passive cigarette sm hemal exposure no Angeline [...] Riaz chewing tobacco use Never Catherin e [place] number of years as a smoker 35 a Evonne Riaz smoking history, tot al pack/day 1 Evonne Riaz cigarette use yes Evonne [place] smoking status Former smoker Evonne Ot is [...] Payer name Policy type / Coverage type [place] red republican ID AARP MEDICARE ADVANTAGE HMO-POS HMO [id number] ADVANCE DIRECTIVES Name Date DISCUSSED - NO DECISION MADE TREATMENT PLAN Date Name Performer [id number],B, Lele Bruce farhana MENJIVAR [id number],S, Lele Bruce farhana MENJIVAR [id number],S, Lele Bruce farhana MENJIVAR [id number],S, Lele Bruce farhana MENJIVAR [id number],S, Lele Hidalgomarilou delcid MD [id number],S, Lele Bruce farhana MENJIVAR [id number],C,c ontinue asa, plavix an statin O rders: 9213 MOD 30-39min (CPT-84279) C omplete Echo (CPT-45046) C arotid Duplex Bilateral (CPT-56303) C RP, high sensitivity (02590) [facility] [id number],C,W ill get recent lipids from PCP H is updated medication list for this problem includes: Atorvastatin 20 Mg Tablet (Atorvastatin) ..... Tablet by mouth once a day Gemfibrozil 600 Mg Tablet (Gemfibrozil) ..... 1 tablet by mouth twice a day [facility] [id number],C,B lood pressure 149/85 today in office reports [...] 1 tablet by mouth once a day [facility] [id number],C,H as known history of carotid disease and CVA. Last carotid duplex in 2020 showed 50-69% stenosis of the FABBY. Will update carotids and lipids. continue asa, plavix and statin O rders: 9213 MOD 30-39min (CPT-13769) C omplete Echo (CPT-91106) C arotid Duplex Bilateral (CPT-60093) C RP, high sensitivity (31772) Alfreda Ventimiglia [facility] [id number],S, Lele delcid MD [id number],S, Lele delcid MD [id number],S, Lele delcid MD [id number],S, Lele delcid MD [id number],B, Lele delcid MD [id number],B, Lele delcid MD Cardiology Lele Shepherd MD [...] an statin O rders: 9213 MOD 30-39min (CPT-13326) C omplete Echo (CPT-16850) C arotid Duplex Bilateral (CPT-25832) C RP, high sensitivity (20380) Alfreda Powers [facility] Cardiology:Will get recent lipids from PCP H is updated medication list for this problem includes: Atorvastatin 20 Mg Tablet (Atorvastatin) ..... Tablet by mouth once a day Gemfibrozil 600 Mg Tablet (Gemfibrozil) ..... 1 tablet by mouth twice a day Alfredaghassan Powers [facility] Cardiology:Blood pre ssure 149/85 today in office [...] by mouth once a day Alfredaghassan Powers [facility] Cardiology:Has known history of carotid disease and CVA. Last carotid duplex in 2020 showed 50-69% stenosis of the FABBY. Will update carotids and lipids. continue asa, plavix and statin O rders: 15788 MOD 30-39min (CPT-18104) C omplete Echo (CPT-28260) C arotid Duplex Bilateral (CPT-54232) C RP, high sensitivity (43740) Alfreda Powers [facility] Cardiology Lele Shepherd MD Cardiology Lele Shepherd [...] EKG Lele Shepherd MD complete d SNOMED-CT: 939985302 303231 Current Medications Documented Lele Shepherd MD completed SNOMED-CT: 699362745 317956 Current Medications Documented Lele Shepherd MD completed SNOMED-CT: 103027724 Smoking Cessation Counseling Lele Shepherd MD completed EKG Lele Shepherd MD complete d SNOMED-CT: 169044498 321774 Current Medications Documented Lele Shepherd MD completed
--- OUTSIDE RECORDS SUMMARY | 2024-05-09 13:59 | XMS_ITS | Patient Health Summary ---
Author Organization [facility] Address [address] [place] [address] Care Team Providers Care Clothespin Drier Operator Name Role Phone Unavailable Primary Care Provider Unavailabl e Note from [facility],non-owned Affiliates and Associated Physician Practices is amultiple site organization consisting of ambulatory clinics and hospital sitesin [place], [place], [place] and [place]. This disclosure is being madepursuant to the Care Everywhere program and may not contain all information available regarding this patient. Last updated 17.[facility] [employer] Social History Tobacco Use Types Packs/Day Years [...]
--- NOTE | 2024-05-09 14:24 | ED.SOB ---
HPI - SOB/Dyspnea General Chief Complaint: Shortness of Breath/Dyspnea <Nubia Herman APRN - Last Filed: 05/09/24 14:31> Stated Complaint: sent by PCP for fluid around heart <Nubia Herman APRN - Last Filed: 05/09/24 14:31> Time Seen by Provider: 05/09/24 14:00 <Nubia Herman APRN - Last Filed: 05/09/24 14:31> Focused HPI: Patient is a 74-year-old male who presents to the ER with a new diagnosis of CHF. He reports he saw his primary care provider last week who ordered blood work. Patient reports his primary care provider called him this morning and advised him to present to the ER for diaphoresis. He endorses lower extremity swelling and shortness of breath with exertion. Patient denies chest pain, wheezing, recent fevers. He endorses a history of high blood pressure and currently smokes cigarettes. GENERAL: Well-appearing, well-nourished, and in no acute distress. HEAD: Normocephalic, atraumatic. CHEST: Clear to auscultation. ?No respiratory distress. HEART: Regular rate and rhythm.? NEURO: ?Alert and oriented x3. Patient screened in triage and initial orders placed.? ?Additional care and disposition to be based upon?diagnostic testing and treatment. <Nubia Herman APRN - Last Filed: 05/09/24 14:31> History of Present Illness HPI Narrative: Patient 72-year-old gentleman presents emergency department with chief complaint of CHF. The patient reports that he has noticed that he has been swellin up and has had some dyspnea on exertion the patient states he saw his primary care provider who told him that he had congestive heart failure and recommended that he come to the emergency department for further evaluation. <David Flores MD - Last Filed: 05/09/24 21:14> Related Data Home Medications: Home Medications ?Medication ?Instructions ?Recorded ?Confirmed ?Last Taken ?Type aspirin 81 mg tablet 81 mg PO DAILY 10/18/20 03/13/24 10/25/20 History atorvastatin 40 mg tablet 40 mg PO DAILY 10/18/20 03/13/24 10/25/20 History clopidogrel 75 mg tablet 75 mg PO DAILY 10/18/20 03/13/24 10/20/20 History gemfibrozil 600 mg tablet 600 mg PO DAILY 10/18/20 03/13/24 10/25/20 History lisinopril 10 1 tablet PO DAILY 10/18/20 03/13/24 10/25/20 History mg-hydrochlorothiazide 12.5 mg tablet omega 8-wnc-jeg-fish oil 1,000 mg 3 cap PO DAILY 03/13/24 03/13/24 Unknown History (120 mg-180 mg) capsule (Fish Oil) <Nubia Herman APRN - Last Filed: 05/09/24 14:31> Allergies/Adverse Reactions: Allergies Allergy/AdvReac Type Severity Reaction Status Date / Time No Known Allergies Allergy Verified 05/09/24 13:12 <Nubia Herman APRN - Last Filed: 05/09/24 14:31> Review of Systems Review of Systems: A 10 system review of systems was completed on the patient and is negative except for what is stated in the HPI. Nursing and ancillary documentation was reviewed. <David Flores MD - Last Filed: 05/09/24 21:14> [facility] Past Medical History Medical History: Medical History Smoker Hyperlipidemia HTN (hypertension) PVD (peripheral vascular disease) History of CVA (cerebrovascular accident) <Nubia Herman APRN - Last Filed: 05/09/24 14:31> Surgical History Surgical History: Surgical History H/O carotid endarterectomy <Nubia Herman APRN - Last Filed: 05/09/24 14:31> Family History Family History: Family History Father Acute myocardial infarction Mother Acute myocardial infarction <Nubia Herman APRN - Last Filed: 05/09/24 14:31> Social History Social History: Social History Smoking status: Current some day smoker Tobacco type: cigarettes Alcohol intake: current Drinks per week: 21 Substance use: never Do You Feel Safe in your Home?: Yes Lack of Transportation: No Lack of Food: Never True Current Housing: I Have Housing Concerned About Future Housing: No Difficulty Paying Gas/Electric Bills: No Difficulty Paying for Meds: No Currently Unemployed: No Education: Master's Degree or Higher Difficulty w/ Childcare or Family Care: No Living arrangements: with family Spiritual care concerns: No <Nubia Herman APRN - Last Filed: 05/09/24 14:31> Exam Narrative: GENERAL: Well-appearing, well-nourished, and in no acute distress. HEAD: Normocephalic, atraumatic. EYES: PERRLA and EOMI. ENT: Nares clear, no rhinorrhea or epistaxis. Mucous membranes moist. NECK: Supple. CHEST: Clear to auscultation. No respiratory distress. HEART: Regular rate and rhythm. No murmur heard. Normal peripheral pulses. ABDOMEN: Soft, nontender, nondistended, normal active bowel sounds. EXTREMITIES: Normal range of motion. 1+ edema. SKIN: Warm, dry, no rash. NEURO: No focal deficits. Alert and oriented x3. PSYCH: Normal mood and affect. <David Flores MD - Last Filed: 05/09/24 21:14> Course Vital Signs Vital signs: Vital Signs Temperature 36.4 C L 05/09/24 13:17 Pulse Rate 83 05/09/24 13:17 Respiratory Rate 15 05/09/24 13:17 Blood Pressure 152/82 H 05/09/24 13:17 Pulse Oximetry 96 05/09/24 13:17 Oxygen Delivery Room Air 05/09/24 13:17 Temperature 37.4 C 05/09/24 17:47 Pulse Rate 94 05/09/24 20:35 Respiratory Rate 9 L 05/09/24 20:35 Blood Pressure 232/187 H 05/09/24 20:35 Pulse Oximetry 98 05/09/24 20:35 Oxygen Delivery Room Air 05/09/24 20:35 <Nubia Herman APRN - Last Filed: 05/09/24 14:31> Vital Signs Temperature 36.4 C L 05/09/24 13:17 Pulse Rate 83 05/09/24 13:17 Respiratory Rate 15 05/09/24 13:17 Blood Pressure 152/82 H 05/09/24 13:17 Pulse Oximetry 96 05/09/24 13:17 Oxygen Delivery Room Air 05/09/24 13:17 Temperature 37.4 C 05/09/24 17:47 Pulse Rate 94 05/09/24 20:35 Respiratory Rate 9 L 05/09/24 20:35 Blood Pressure 232/187 H 05/09/24 20:35 Pulse Oximetry 98 05/09/24 20:35 Oxygen Delivery Room Air 05/09/24 20:35 <David Flores MD - Last Filed: 05/09/24 21:14> MDM - SOB/Dyspnea MDM Narrative Medical decision making narrative: Differential diagnosis includes NSTEMI, ACS, CHF, EKG showed no acute ischemic changes BNP was elevated and troponin was elevated. Patient is having no active chest pain at this time the patient was given Lasix aspirin and the patient will be admitted to the hospitalist service <David Flores MD - Last Filed: 05/09/24 21:14> Lab Data Result diagrams: 05/09/24 14:17 05/09/24 14:17 <Nubia Herman APRN - Last Filed: 05/09/24 14:31> Labs: Lab Results 05/09/24 05/09/24 Range/Units 14:17 19:41 WBC 9.7 (4.5-10.0) K/mm3 RBC 4.13 L (4.6-6.20) M/mm3 Hgb 12.0 L (14.0-18.0) g/dL Hct 39.9 L (42.0-52.0) % MCV 96.6 (80-100) fl MCH 29.1 (26-34) pg MCHC 30.1 L (32-36) g/dl RDW 15.8 H (11.5-14.5) % Plt Count 325 (150-375) k/mm3 MPV 11.0 H (7.4-10.4) fl Immature Gran % (Auto) 0.4 (0-0.5) % Neut % (Auto) 78.0 H (45.5-73.1) % Lymph % (Auto) 10.1 L (18.3-44.2) % Mcleod % (Auto) 7.8 (2.6-8.5) % Eos % (Auto) 3.0 (0-4.4) % Baso % (Auto) 0.7 (0.2-1.2) % Lymph # (Auto) 0.98 (0.9-3.2) K/mm3 Mcleod # (Auto) 0.8 H (0.1-0.6) K/mm3 Eos # (Auto) 0.3 (0-0.3) K/mm3 Baso # (Auto) 0.1 (0.0-0.1) K/mm3 Abs Immat Gran (auto) 0.04 H (0.00-0.031) K/mm3 Absolute Neuts (auto) 7.5 H (1.3-6.7) K/mm3 Absolute Nucleated RBC 0.000 (0.0-0.012) K/mm3 Nucleated RBC % 0.0 (0.0-0.2) % PT 14.6 (11.1-14.7) Seconds INR 1.1 APTT 30.9 (22.3-36.8) Seconds Sodium 144 (137-145) mmol/L Potassium 3.0 L (3.4-5.0) mmol/L Chloride 109 H (98-107) mmol/L Carbon Dioxide 24 (22-30) mmol/L Anion Gap 11 (4-12) mmol/L BUN 16 (9-20) mg/dL Creatinine 1.01 (0.7-1.3) mg/dL Estim Creat Clear Calc Not Reportable Estimated GFR > 60 (59 - ) Glucose 87 (65-110) mg/dL Calcium 8.9 (8.4-10.2) mg/dL Total Bilirubin 0.7 (0.2-1.3) mg/dL AST 27 (17-59) U/L ALT 21 (6-50) U/L Alkaline Phosphatase 103 (38-126) U/L Troponin I 0.113 H* 0.118 H* (0.000-0.034) ng/mL NT-Pro-B Natriuret Pep 3330 H (19.9-100) pg/mL Total Protein 6.0 L (6.3-8.2) g/dL Albumin 3.7 (3.5-5.1) g/dL <Nubia BrownleeReji Herman, CLERICAL OFFICE WORKER - Last Filed: 05/09/24 14:31> Lab Results 05/09/24 05/09/24 Range/Units 14:17 19:41 WBC 9.7 (4.5-10.0) K/mm3 RBC 4.13 L (4.6-6.20) M/mm3 Hgb 12.0 L (14.0-18.0) g/dL Hct 39.9 L (42.0-52.0) % MCV 96.6 (80-100) fl MCH 29.1 (26-34) pg MCHC 30.1 L (32-36) g/dl RDW 15.8 H (11.5-14.5) % Plt Count 325 (150-375) k/mm3 MPV 11.0 H (7.4-10.4) fl Immature Gran % (Auto) 0.4 (0-0.5) % Neut % (Auto) 78.0 H (45.5-73.1) % Lymph % (Auto) 10.1 L (18.3-44.2) % Mcleod % (Auto) 7.8 (2.6-8.5) % Eos % (Auto) 3.0 (0-4.4) % Baso % (Auto) 0.7 (0.2-1.2) % Lymph # (Auto) 0.98 (0.9-3.2) K/mm3 Mcleod # (Auto) 0.8 H (0.1-0.6) K/mm3 Eos # (Auto) 0.3 (0-0.3) K/mm3 Baso # (Auto) 0.1 (0.0-0.1) K/mm3 Abs Immat Gran (auto) 0.04 H (0.00-0.031) K/mm3 Absolute Neuts (auto) 7.5 H (1.3-6.7) K/mm3 Absolute Nucleated RBC 0.000 (0.0-0.012) K/mm3 Nucleated RBC % 0.0 (0.0-0.2) % PT 14.6 (11.1-14.7) Seconds INR 1.1 APTT 30.9 (22.3-36.8) Seconds Sodium 144 (137-145) mmol/L Potassium 3.0 L (3.4-5.0) mmol/L Chloride 109 H (98-107) mmol/L Carbon Dioxide 24 (22-30) mmol/L Anion Gap 11 (4-12) mmol/L BUN 16 (9-20) mg/dL Creatinine 1.01 (0.7-1.3) mg/dL Estim Creat Clear Calc Not Reportable Estimated GFR > 60 (59 - ) Glucose 87 (65-110) mg/dL Calcium 8.9 (8.4-10.2) mg/dL Total Bilirubin 0.7 (0.2-1.3) mg/dL AST 27 (17-59) U/L ALT 21 (6-50) U/L Alkaline Phosphatase 103 (38-126) U/L Troponin I 0.113 H* 0.118 H* (0.000-0.034) ng/mL NT-Pro-B Natriuret Pep 3330 H (19.9-100) pg/mL Total Protein 6.0 L (6.3-8.2) g/dL Albumin 3.7 (3.5-5.1) g/dL <David Flores MD - Last Filed: 05/09/24 21:14> Discharge Plan Discharge Clinical Impression: CHF (congestive heart failure), Elevated troponin <Nubia Herman APRN - Last Filed: 05/09/24 14:31> Patient Disposition: Still a Patient <Nubia Herman APRN - Last Filed: 05/09/24 14:31> Condition: Stable <Nubia Herman APRN - Last Filed: 05/09/24 14:31> Patient Language: Upper Sorbian <Nubia Herman APRN - Last Filed: 05/09/24 14:31> Prescriptions: No Action omega 7-bdr-jfz-fish oil [Fish Oil] 1,000 (120-180) mg capsule 3 cap PO DAILY atorvastatin 40 mg tablet 40 mg PO DAILY clopidogrel 75 mg tablet 75 mg PO DAILY gemfibrozil 600 mg Tablet 600 mg PO DAILY aspirin 81 mg Tablet 81 mg PO DAILY lisinopril-hydrochlorothiazide 10-12.5 mg tablet 1 tablet PO DAILY <Nubia Herman APRN - Last Filed: 05/09/24 14:31> Follow-up/Referrals: Vick,MD Andre [Primary Care Provider] - <Nubia Herman APRN - Last Filed: 05/09/24 14:31> Time of Disposition: 21:14 <Nubia Herman APRN - Last Filed: 05/09/24 14:31> 21:14 <David Flores MD - Last Filed: 05/09/24 21:14>
[2024-05-09 14:25] LABS: Basophils Absolute Auto 0.1 K/mm3 (0.0-0.1); Basophils Percent Auto 0.7 % (0.2-1.2); Eosinophils Absolute Auto 0.3 K/mm3 (0-0.3); Hematocrit 39.9 % (42.0-52.0); Immature Granulocyte Absolute 0.04 K/mm3 (0.00-0.031); Immature Granulocyte Percent A 0.4 % (0-0.5); Lymphocytes Absolute Auto 0.98 K/mm3 (0.9-3.2); Lymphocytes Percent Auto 10.1 % (18.3-44.2); Mean Corpuscular HGB Conc 30.1 g/dl (32-36); Mean Corpuscular Hemoglobin 29.1 pg (26-34); Mean Corpuscular Volume 96.6 fl (80-100); Monocytes Absolute Auto 0.8 K/mm3 (0.1-0.6); Monocytes Percent Auto 7.8 % (2.6-8.5); Neutrophils Absolute Auto 7.5 K/mm3 (1.3-6.7); Platelet Count Result 325 k/mm3 (150-375); Red Blood Count 4.13 M/mm3 (4.6-6.20); Red Cell Distribution Width 15.8 % (11.5-14.5); White Blood Count 9.7 K/mm3 (4.5-10.0)
[2024-05-09 14:36] LABS: Alanine Aminotransferase 21 U/L (6-50); Albumin Level 3.7 g/dL (3.5-5.1); Alkaline Phosphatase 103 U/L (38-126); Anion Gap 11 mmol/L (4-12); Aspartate Amino Transferase 27 U/L (17-59); Bilirubin,Total 0.7 mg/dL (0.2-1.3); Blood Urea Nitrogen 16 mg/dL (9-20); Calcium 8.9 mg/dL (8.4-10.2); Carbon Dioxide 24 mmol/L (22-30); Chloride 109 mmol/L (98-107); Estimated Glomerular Filt Rate > 60; Glucose 87 mg/dL (65-110); Sodium 144 mmol/L (137-145)
[2024-05-09 14:38] LABS: INR 1.1; Partial Thromboplastin Time 30.9 Seconds (22.3-36.8); Prothrombin Time 14.6 Seconds (11.1-14.7)
[2024-05-09 14:57] LABS: NT Pro B Type Natriuretic Pept 3330 pg/mL (19.9-100); Troponin I 0.113 ng/mL (0.000-0.034)
--- NOTE | 2024-05-09 19:16 | ECG_ITS ---
Test Date: 2024-05-09 19:23:06 Measurements Intervals [place] Rate: 94 P: 12 MA: 120 QRS: -27 QRSD: 90 T: 121 QT: 317 QTc: 396 Interpretive Statements SINUS RHYTHM WITH FREQUENT VENTRICULAR PREMATURE COMPLEXES LEFTWARD AXIS INTRAVENTRICULAR CONDUCTION DELAY CONSIDER PREVIOUS ANTERIOR INFARCTION ABNORMAL ECG Compared to ECG 05/09/2024 13:32:33 QRS DURATION IS INCREASED /PROLONGED Electronically Signed On 05-10-2024 15:38:57 DRAY DRIVER by Andre Johnson M.D.
[2024-05-09 20:11] LABS: Troponin I 0.118 ng/mL (0.000-0.034)
--- NOTE | 2024-05-09 21:15 | P.HP_ITS ---
H&P: HPI History of Present Illness Date/Time: 05/09/24 23:00 Chief Complaint: ?Congestive heart failure.? Narrative: This is a very pleasant 74-year-old male smoker with history of stroke, carotid artery stenosis status post bilateral endarterectomy, peripheral arterial disease status post bilateral lower extremity stents, hypertension, dyslipidemia, iron deficiency anemia, and vitamin-D deficiency who presented to the emergency department via private vehicle as directed by his doctor for evaluation of ?congestive heart failure.? The patient provides the following history. He was admitted to the hospital on 03/13/2024 with acute kidney injury and dehydration and was able to be discharged home in a couple of days after IV fluid rehydration. He tested positive for COVID at that time however had no symp toms. He has been doing well since that time however within the last week he has developed increasing lower extremity edema, orthopnea, and shortness of breath with exertion. He saw his doctor for evaluation this week and he received a phone call today that he should proceed to the ED due to suspicions for new onset congestive heart failure. He denies syncope, near syncope, fever, cold and flu symptoms, chest and pleuritic pain, racing heart, palpitations, nausea, vomiting, diarrhea, and calf pain. No recent vaccinations. He has cut his drinking back to about 2 beers a week. No history of coronary artery disease or congestive heart failure. In the ED: Vital signs were stable on arrival with a blood pressure of 152/80. Labs were significant for hemoglobin of 12.0, potassium 3.0, chloride 109, proBNP 3330, troponin 0.113. Chest x-ray showed stable moderate size right and small left pleural effusions and airspace opacities at the lung bases consistent with atelectasis versus pneumonia. EKG showed sinus rhythm with occasional PVCs, left axis deviation, and Q-waves in the anterior leads. He received aspirin 324 mg and furosemide 40 mg IV and he is being admitted to the IMU in this setting for further workup of what appears to be new onset congestive heart failure and elevated troponins. Review of Systems Review of Systems: 12 systems were reviewed and are negativ e except for as per HPI. [facility] Past Medical History Medical History (Updated 05/10/24 @ 04:33 by Sita Stuart PA-C) Carotid artery stenosis status post bilateral carotid endarterectomy Peripheral arterial disease status post bilateral lower extremity stent Cerebrovascular accident Hypertension Tobacco dependence Hyperlipidemia Surgical History Surgical History (Updated 05/10/24 @ 04:30 by Sita Stuart PA-C) History of lumbar fusion History of intravascular stent placement bilateral lower extremity stent History of bilateral carotid endarterectomy History of arthroscopy of both knees History of adenoidectomy History of cataract extraction History of colonoscopy with polypectomy Family History Family History Father Acute myocardial infarction CHF (congestive heart failure) Mother Acute myocardial infarction Social History Social History (Updated 05/10/24 @ 04:30 by Sita Stuart PA-C) Social History: Surrogate medical decision maker: Destiney Ovalles, spouse. Code status: Full code. Smoking packs per day: 0.5 Smoking cigarettes per day: 10.0 Years smoked: 45 Smoking pack-years: 22.50 Smoking status: Current every day smoker Tobacco type: cigarettes Alcohol intake: current Drinks per week: 2 Substance use: never Do You Feel Safe in your Home?: Yes Lack of Transportation: No Lack of Food: Never True Current Housing: I Have Housing Concerned About Future Housing: No Difficulty Paying Gas/Electric Bills: No Difficulty Paying for Meds: No Currently Unemployed: No Education: Master's Degree or Higher Difficulty w/ Childcare or Family Care: No Living arrangements: with family Additional living arrangements comments: Lives with spouse in [place]. 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 Spiritual care concerns: No Meds Home Medications and Allergies Home Medications ?Medication ?Instructions ?Recorded ?Confirmed ?Type aspirin 81 mg tablet 81 mg PO DAILY 10/18/20 05/09/24 History atorvastatin 40 mg tablet 40 mg PO DAILY 10/18/20 05/09/24 History clopidogrel 75 mg tablet 75 mg PO DAILY 10/18/20 05/09/24 History gemfibrozil 600 mg tablet 600 mg PO DAILY 10/18/20 05/09/24 History lisinopril 10 1 tablet PO DAILY 10/18/20 05/09/24 History mg-hydrochlorothiazide 12.5 mg tablet omega 9-lkd-bjt-fish oil 1,000 mg 3 cap PO DAILY 03/13/24 05/09/24 History (120 mg-180 mg) capsule (Fish Oil) ergocalciferol (vitamin D2) 1,250 50,000 unit PO WEEKLY 05/09/24 05/09/24 History mcg (50,000 unit) capsule ferrous sulfate 325 mg (65 mg 325 mg PO DAILY 05/09/24 05/09/24 History iron) tablet (iron) Allergies Allergy/AdvReac Type Severity Reaction Status Date / Time No Known Allergies Allergy Verified 05/09/24 13:12 Vital Signs Vital Signs - 24 hr 05/09/24 13:17 05/09/24 17:47 05/09/24 20:35 Temperature 97.5 F L 99.4 F Pulse Rate 83 72 84 Respiratory Rate 15 15 Blood Pressure 152/82 H 166/85 H Pulse Oximetry 96 99 Oxygen Delivery Room Air 05/09/24 20:35 05/09/24 20:35 Temperature Pulse Rate 94 Respiratory Rate 9 L Blood Pressure 232/187 H Pulse Oximetry 99 98 Oxygen Delivery Room Air Exam Narrative: General: Chronically ill-appearing male sitting up at the side of the bed in no acute distress. Weight: 64.7 kg. BMI: 21.7. HEENT: PERRL, EOMI. Sclera anicteric. Oral mucosa moist. Oropharynx clear. Neck: Supple. No significant JVD. Respiratory: Respirations are nonlabored. Lung sounds are diminished at the bases with crackles on the right. Cardiovascular: Regular rate and rhythm with frequent ectopy. Gastrointestinal: Abdomen is soft, nontender, and nondistended with positive bowel sounds. Skin: Warm and dry. Chronic skin changes of the lower legs bilaterally Extremities: No cyanosis or clubbing. Two to 3+ bilateral lower extremity edema softening towards the knees. No palpable knots or cords. Equivocal Homans sign bilaterally. Neurological: Alert. Cranial nerves 2-12 are grossly intact. No gross focal deficits to casual conversation. Psychiatric: Pleasant and cooperative with normal mood and affect. Judgment and insight intact. H&P: Results Labs Labs: Short CBC 05/09/24 Range/Units 14:17 WBC 9.7 (4.5-10.0) K/mm3 Hgb 12.0 L (14.0-18.0) g/dL Hct 39.9 L (42.0-52.0) % Plt Count 325 (150-375) k/mm3 [facility] 05/09/24 14:17 Sodium 144 Potassium 3.0 L Chloride 109 H Carbon Dioxide 24 BUN 16 Creatinine 1.01 Glucose 87 Calcium 8.9 Cardiac Enzymes 05/09/24 05/09/24 Range/Units 14:17 19:41 Troponin I 0.113 H* 0.118 H* (0.000-0.034) ng/mL Liver Function 05/09/24 Range/Units 14:17 Total Bilirubin 0.7 (0.2-1.3) mg/dL AST 27 (17-59) U/L ALT 21 (6-50) U/L Alkaline Phosphatase 103 (38-126) U/L Albumin 3.7 (3.5-5.1) g/dL Impressions Chest X-Ray 05/09/24 14:30 IMPRESSION: 1. Stable moderate-sized right and small left pleural effusions. 2. Airspace opacities at the lung bases, consistent with atelectasis versus pneumonia. Assessment and Plan Assessment and plan (1) New onset of congestive heart failure: Code(s): I50.9 - Heart failure, unspecified Status: Acute (2) Elevated troponin: Code(s): R79.89 - Other specified abnormal findings of blood chemistry Status: Acute (3) Pleural effusion: Code(s): J90 - Pleural effusion, not elsewhere classified Status: Acute (4) Hypokalemia: Code(s): E87.6 - Hypokalemia Status: Acute (5) Hypertension: Code(s): I10 - Essential (primary) hypertension Status: Acute (6) Tobacco dependence: Code(s): F17.200 - Nicotine dependence, unspecified, uncomplicated Status: Acute Plan The patient presented to the emergency department at the direction of his doctor for further evaluation of suspected new onset congestive heart failure (edema, orthopnea, exertional dyspnea) as detailed in HPI. Labs, imaging, EKG, and all reports were personally reviewed. The history provided by the patient physical exam findings, and preliminary workup are consistent with new onset congestive heart failure with exacerbation. He will be diuresed with close monitoring of volume status, renal function, and electrolytes (potassium was low and was replaced shortly after receiving his 1st dose of furosemide). Thoracentesis ordered for tomorrow as the fluid collection on the right side will not likely resolve with diuretics alone. Troponins thus far are modestly elevated but flat and are likely elevated in the setting of new onset CHF. EKG does show findings of an age-indeterminate anterior infarction and he will eventually need ischemic workup. Cardiology has been consulted for recommendations. At this time we are holding on anticoagulation as he is without chest pain and with plans for thoracentesis. Blood pressures are not ideally controlled but should improve with diuresis. He will likely need an up titration of his antihypertensives and/or the addition of other medications depending on how blood pressures trend. Smoking cessation is imperative and was discussed; he denies the need for nicotine patch at this time. His home medications will be reviewed and resumed as appropriate. Findings and treatment plan were discussed with the patient. Questions were solicited and answered to satisfaction. The patient's medical management will be taken over by the hospitalist team in a.m. Quality If No VTE Prophylaxis Answer both mechanical and pharmacologic: Reason no pharmacologic proph: medical contraindication (thoracentesis ordered for a.m.) The patient has been admitted under observation status. Hospitalist MIPS Advance Care Plan I have confirmed that the patient's Advanced Care Plan is present, code status is documented, or surrogate decision maker is listed in patient medical record.: Yes Medication Reconciliation I have utilized all available resources to obtain, update and review the patients current medications (includes all prescriptions, OTC, herbals, cannabis, and nutritional supplements).: Yes
[2024-05-09] MEDS: ASPIRIN 81 MG CHEWABLE TABLET 324 MG PO (21:35)
[2024-05-09] MEDS: FUROSEMIDE INJ 40 MG/4 ML VIAL IV PUSH (21:35)
--- NOTE | 2024-05-09 21:42 | PC.NURSE ---
pt states 0/10 chest pain and 0/10 chest pressure at this time. pt refused the need for nitro paste.
[2024-05-09 22:59] LABS: Troponin I 0.114 ng/mL (0.000-0.034)
--- NOTE | 2024-05-09 23:19 | ADMGEN ---
This patient, Lew Ovalles, was admitted to IMU Room 209-01. Patient/family oriented to hospital policies and general routines including ID bracelet, bed and alarms, visiting hours, pain management, procedures, bathroom and other care routines, personal items, smoking policy, room service/diet, and visiting hours. Information on how to activate the Rapid Response Team has been discussed. Patient/Family are encouraged to report perceived risks to care and to ask questions if they do not understand what they are told or what they should do.
[2024-05-09] MEDS: POTASSIUM CHLORIDE 20 MEQ ER TABLET 40 MEQ PO (23:39)
--- NOTE | 2024-05-09 23:54 | ECG_ITS ---
Test Date: 2024-05-10 00:02:32 Measurements Intervals [place] Rate: 82 P: 13 GA: 154 QRS: 24 QRSD: 102 T: 180 QT: 372 QTc: 435 Interpretive Statements SINUS RHYTHM WITH FREQUENT VENTRICULAR PREMATURE COMPLEXES LEFT ATRIAL ENLARGEMENT [-0.15mV P WAVE IN V1/V2] POSSIBLE ANTERIOR MYOCARDIAL INFARCTION [30 ms Q WAVE IN V3/V4, OR R < 0.2 mV IN V4], OF INDETERMINATE AGE ABNORMAL ECG Compared to ECG 05/09/2024 19:23:06 NO SIGNIFICANT DIFFERENCE Electronically Signed On 05-10-2024 15:52:09 ACQUISITION SPECIALIST by Andre Johnson M.D.
[2024-05-10] VITALS (17 sets, daily range): BP systolic 104–133; BP diastolic 62–83; PULSE 64–84; RESP 14–20; TEMP 36.4–36.7; O2SAT 97–100
[2024-05-10 01:04] LABS: Magnesium 1.8 mg/dL (1.6-2.3); Potassium 3.3 mmol/L (3.4-5.0)
[2024-05-10 05:16] LABS: Hematocrit 40.7 % (42.0-52.0); Hemoglobin 12.2 g/dL (14.0-18.0); Mean Corpuscular Hemoglobin 28.6 pg (26-34); Mean Corpuscular Volume 95.5 fl (80-100); Platelet Count Result 338 k/mm3 (150-375); Red Blood Count 4.26 M/mm3 (4.6-6.20); Red Cell Distribution Width 15.6 % (11.5-14.5); White Blood Count 8.4 K/mm3 (4.5-10.0)
[2024-05-10 05:25] LABS: Anion Gap 11 mmol/L (4-12); Blood Urea Nitrogen 15 mg/dL (9-20); Calcium 8.8 mg/dL (8.4-10.2); Carbon Dioxide 27 mmol/L (22-30); Chloride 105 mmol/L (98-107); Cholesterol 115 mg/dL (0-200); Estimated CRCL calculation 55 ml/min; Estimated Glomerular Filt Rate > 60; Glucose 86 mg/dL (65-110); HDL Direct 48 mg/dL; Magnesium 1.8 mg/dL (1.6-2.3); Potassium 3.4 mmol/L (3.4-5.0); Sodium 143 mmol/L (137-145); Triglycerides 67 mg/dL (<150)
[2024-05-10 05:30] LABS: Albumin Level 3.7 g/dL (3.5-5.1); Amylase 47 U/L (30-110); Lactate Dehydrogenase 255 U/L (120-246); Triglycerides 72 mg/dL (<150)
[2024-05-10 05:36] LABS: LDL Cholesterol Direct 48 mg/dL
[2024-05-10 05:43] LABS: INR 1.1; Prothrombin Time 14.3 Seconds (11.1-14.7)
[2024-05-10] MEDS: POTASSIUM CHLORIDE 20 MEQ ER TABLET 40 MEQ PO (05:50)
--- NOTE | 2024-05-10 06:00 | ECHO_ITS ---
Patient Info Name: Lew Ovalles Age: 74 years : 1950 Gender: Male Ht: 68 in Wt: 142 lbs BSA: 1.76 m2 HR: 74 bpm BP: 147 / 79 mmHg Heart Rhythm: Sinus Rhythm Technical Quality: Fair Exam Date: 05/10/2024 11:51 AM Exam Location: Echo Lab Patient Status: Inpatient Admit Date: 05/10/2024 Staff Ordering Physician: David Flores MD Insurance [employer] Financial Services Agent: Shreya Perez RDCS Attending Provider: David Childress MD Referring Physician: Sandra RICHARD; Exam Type: CA echo doppler color flow Study Info Indications - CHF Complete two-dimensional, color flow and Doppler transthoracic echocardiogram is performed. Summary 1. Complete two-dimensional, color flow and Doppler transthoracic echocardiogram is performed. 2. Normal left ventricular size and overall well preserved systolic contractility. 3. Grade 2 diastolic noncompliance. 4. Moderate left atrial enlargement. 5. Mild MR. 6. Mildly sclerotic aortic valve with mild AI. 7. Trivial pericardial effusion. Left Ventricle Left ventricular chamber dimension is normal. Left ventricular systolic function is normal, estimated at 55-60%. The left ventricular diastolic function is grade II diastolic dysfunction. Right Ventricle Right ventricular chamber dimension is normal. Left Atria Left atrial chamber dimension is moderately enlarged. Right Atria Right atrial chamber dimension is normal. Aortic Valve The aortic valve is trileaflet. There is mild aortic valve sclerosis. There is mild aortic valve regurgitation. Pulmonic Valve The pulmonic valve is not well visualized. Mitral Valve The mitral valve has normal leaflets. There is mild mitral valve regurgitation. The mitral valve annulus is severely calcified. Tricuspid Valve The tricuspid valve leaflets are normal. Pericardium/Pleural There is trivial pericardial effusion. Aorta The aortic root size at the sinus of Valsalva is normal. Left Ventricular Outflow Tract Name Value Normal LVOT 2D LVOT Diameter 2.0 cm LVOT Doppler LVOT Peak Gradient 3 mmHg LVOT Mean Gradient 1 mmHg LVOT VTI 18 cm LVOT VTI/AV VTI Ratio 0.4 LVOT Stroke Volume 60 ml LVOT CO 3.9 l/min LVOT CI 2.2 l/min/m2 Pulmonic Valve Name Value Normal RVOT Doppler RVOT Peak Gradient 2 mmHg PV Doppler PV Peak Gradient 4 mmHg Mitral Valve Name Value Normal MV Doppler MV Decel Kimble 629 cm/s2 MV PHT 68 ms MV Area (PHT) 3.2 cm2 4.0-5.0 MV Diastolic Function MV E Peak Velocity 148 cm/s MV A Peak Velocity 70 cm/s MV E/A 2.1 MV Decel Time 235 ms MV Annular TDI MV E/e' (Septal) 54.3 <=8.0 MV E/e' (Lateral) 19.2 <=8.0 MV E/e' (Average) 36.8 Tricuspid Valve Name Value Normal TV Regurgitation Doppler TR Peak Velocity 284 cm/s TR Peak Gradient 32 mmHg Aortic Valve Name Value Normal AV Doppler AV Peak Velocity 203 cm/s AV Peak Gradient 16 mmHg AV Mean Gradient 8 mmHg AV VTI 44 cm AV Area (Cont Eq VTI) 1.4 cm2 >=3.0 AV Area (Cont Eq Manny) 1.3 cm2 AV Regurgitation 2D LVOT Area 3.2 cm2 AV Regurgitation Doppler AR Decel Time 3,174 ms AR Decel Kimble 107 cm/s2 AR PHT 920 ms Ventricles Name Value Normal LV Dimensions 2D/MM IVS Diastolic Thickness (2D) 1.1 cm 0.6-1.0 LVID Diastole (2D) 4.5 cm 4.2-5.8 LVIW Diastolic Thickness (2D) 1.2 cm 0.6-1.0 LVID Systole (2D) 2.9 cm 2.5-4.0 LVOT Diameter 2.0 cm LV Mass (2D Cubed) 184.98 g 88.00-224.00 LV Mass Index (2D Cubed) 105 g/m2 49-115 Relative Wall Thickness (2D) 0.54 LV Fractional Shortening/Ejection Fraction 2D/MM LV Fractional Shortening (2D) 35 % 25-43 LV EF (2D Teicholz) 65 % 52-72 LV Diastolic Volume (4C MOD) 139 ml LV EF (4C MOD) 64 % LV Diastolic Volume (2C MOD) 125 ml LV EF (2C MOD) 43 % LV Diastolic Volume (BP MOD) 132 ml 62-150 LV Diastolic Volume Index (BP MOD) 75 ml/m2 34-74 LV Systolic Volume (BP MOD) 66 ml 21-61 LV Systolic Volume Index (BP MOD) 38 ml/m2 11-31 LV EF (BP MOD) 50 % 52-72 LV Diastolic Length (4C) 7.3 cm LV Systolic Length (4C) 5.4 cm LV Stroke Volume (4C MOD) 89 ml Atria Name Value Normal LA Dimensions LA Volume (4C A-L) 82 ml LA Volume (BP A-L) 93 ml RA Dimensions RA Area (4C) 22.4 cm2 <=18.0 Report Signatures
--- NOTE | 2024-05-10 08:31 | P.PNIM_ITS ---
Progress Note: A&P Assessment and Plan (1) Acute kidney injury: Code(s): N17.9 - Acute kidney failure, unspecified Status: Acute Assessment and Plan: BUN/Cr 151/2.18 on admission, unknown baseline as there is no prior labs to compare - BUN/Cr 75/1.21 on am labs - IV NS 100 ml/hr - CT abdomen/pelvis: Kidneys: No suspicious mass, obstructing stone, or hydronephrosis. No other acute abdominopelvic process detected. - Avoid nephrotoxic medications holding lisinopril-HCTZ - Renally dose medication - Monitor urine output (2) COVID: Code(s): U07.1 - COVID-19 Status: Acute Assessment and Plan: - Viral panel: Covid positive - Place in COVID19 isolation precautions, cardiac monitoring, and continuous pulse ox - Monitor serum electrolytes, CRP, Lactic acid, troponin, CBC, WBC, temperature curve and follow cultures - Pt does not meet criteria for Remdesivir and Dexamethasone as he is 100% on room air (3) HTN (hypertension): Code(s): I10 - Essential (primary) hypertension Status: Acute Assessment and Plan: Chronic - currently holding lisinopril-HCTZ 2/2 IVORY - restart medications as appropriate - blood pressures remain stable, continue to monitor Plan Continue home medications: VTE Prophylaxis: Enoxaparin subQ DIET: NPO Anticipated hospital stay: > 2 days 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 05/10/2024: Pt seen this morning, he is sitting bedside, in no acute distress, denies any chest pain, shortness a breast nausea vomiting. He denies any overnight events. Patient is awaiting transport to IR for thoracentesis. Review of Systems Review of Systems: All systems reviewed & are unremarkable except as noted in HPI and below Exam Narrative: General: Chronically ill-appearing male sitting up at the side of the bed in no acute distress. Weight: 64.7 kg. BMI: 21.7. HEENT: PERRL, EOMI. Sclera anicteric. Oral mucosa moist. Oropharynx clear. Neck: Supple. No significant JVD. Respiratory: Respirations are nonlabored. Lung sounds are diminished at the bases with crackles on the right. Cardiovascular: Regular rate and rhythm with frequent ectopy. Gastrointestinal: Abdomen is soft, nontender, and nondistended with positive bowel sounds. Skin: Warm and dry. Chronic skin changes of the lower legs bilaterally Extremities: No cyanosis or clubbing. Two to 3+ bilateral lower extremity edema softening towards the knees. No palpable knots or cords. Equivocal Homans sign bilaterally. Neurological: Alert. Cranial nerves 2-12 are grossly intact. No gross focal deficits to casual conversation. Psychiatric: Pleasant and cooperative with normal mood and affect. Judgment and insight intact. Objective Data Vital Signs Vital Signs: Vital Signs - 24 hr 05/09/24 13:17 05/09/24 17:47 05/09/24 20:35 Temperature 97.5 F L 99.4 F Pulse Rate 83 72 84 Respiratory Rate 15 15 Blood Pressure 152/82 H 166/85 H Pulse Oximetry 96 99 Oxygen Delivery Room Air 05/09/24 20:35 05/09/24 20:35 05/09/24 21:00 Temperature Pulse Rate 94 74 Respiratory Rate 9 L 25 H Blood Pressure 232/187 H 152/95 H Pulse Oximetry 99 98 97 Oxygen Delivery Room Air 05/09/24 21:16 05/09/24 21:31 05/09/24 21:45 Temperature Pulse Rate 78 76 75 Respiratory Rate 23 H 32 H 22 H Blood Pressure 139/83 124/97 H 120/60 Pulse Oximetry 94 94 97 Oxygen Delivery 05/09/24 22:16 05/09/24 23:47 05/10/24 00:00 Temperature 97.6 F Pulse Rate 83 70 75 Respiratory Rate 18 16 Blood Pressure 157/79 H 147/79 H Pulse Oximetry 100 100 Oxygen Delivery 05/10/24 02:00 05/10/24 04:00 05/10/24 04:46 Temperature 97.7 F Pulse Rate 77 64 67 Respiratory Rate 16 Blood Pressure 133/62 Pulse Oximetry 97 Oxygen Delivery 05/10/24 06:00 05/10/24 07:43 Temperature 97.7 F Pulse Rate 74 72 Respiratory Rate 14 Blood Pressure 127/79 Pulse Oximetry 97 Oxygen Delivery Intake/Output Intake/Output: Intake & Output 05/07/24 05/08/24 05/09/24 05/10/24 23:59 23:59 23:59 23:59 Intake Total 340 Output Total 400 600 Balance -400 -260 Meds/Results Medications: Active Medications Generic Name Dose Route Start Last Admin Trade Name Freq PRN Reason Stop Dose Admin Acetaminophen 650 mg 05/09/24 23:10 Acetaminophen 325 Mg Tablet PO Q6H PRN Mild Pain (1-3) or Fever Furosemide 40 mg 05/10/24 09:00 Furosemide Inj 40 Mg/4 Ml Vial IV PUSH Q12HR [place] Perflutren Lipid Microsphere 0 ml 05/09/24 21:11 Perflutren Lipid Microspheres 1.5 Ml Vial Diluted To 10 Ml Total Volume IV PUSH 05/12/24 21:12 ONCE PRN adequate visualization Protocol Radiology Results: ITS Impressions Chest X-Ray 05/09/24 14:30 IMPRESSION: 1. Stable moderate-sized right and small left pleural effusions. 2. Airspace opacities at the lung bases, consistent with atelectasis versus pneumonia. Labs Labs: Laboratory Results - last 24 hr 05/09/24 05/09/24 05/09/24 14:17 19:41 22:30 WBC 9.7 RBC 4.13 L Hgb 12.0 L Hct 39.9 L MCV 96.6 MCH 29.1 MCHC 30.1 L RDW 15.8 H Plt Count 325 MPV 11.0 H Immature Gran % (Auto) 0.4 Neut % (Auto) 78.0 H Lymph % (Auto) 10.1 L [place] % (Auto) 7.8 Eos % (Auto) 3.0 Baso % (Auto) 0.7 Lymph # (Auto) 0.98 [place] # (Auto) 0.8 H Eos # (Auto) 0.3 Baso # (Auto) 0.1 Abs Immat Gran (auto) 0.04 H Absolute Neuts (auto) 7.5 H Absolute Nucleated RBC 0.000 Nucleated RBC % 0.0 PT 14.6 INR 1.1 APTT 30.9 Sodium 144 Potassium 3.0 L Chloride 109 H Carbon Dioxide 24 Anion Gap 11 BUN 16 Creatinine 1.01 Estim Creat Clear Calc Not Reportable Estimated GFR > 60 Glucose 87 Calcium 8.9 Magnesium Total Bilirubin 0.7 AST 27 ALT 21 Alkaline Phosphatase 103 Lactate Dehydrogenase Troponin I 0.113 H* 0.118 H* 0.114 H* NT-Pro-B Natriuret Pep 3330 H Total Protein 6.0 L Albumin 3.7 Triglycerides Cholesterol LDL Cholesterol Direct HDL Direct Amylase TSH (Reflex) 05/10/24 05/10/24 05/10/24 00:44 04:30 05:01 WBC 8.4 RBC 4.26 L Hgb 12.2 L Hct 40.7 L MCV 95.5 MCH 28.6 MCHC 30.0 L RDW 15.6 H Plt Count 338 MPV 11.0 H Immature Gran % (Auto) Neut % (Auto) Lymph % (Auto) [place] % (Auto) Eos % (Auto) Baso % (Auto) Lymph # (Auto) [place] # (Auto) Eos # (Auto) Baso # (Auto) Abs Immat Gran (auto) Absolute Neuts (auto) Absolute Nucleated RBC Nucleated RBC % PT 14.3 INR 1.1 APTT Sodium 143 Potassium 3.3 L 3.4 Chloride 105 Carbon Dioxide 27 Anion Gap 11 BUN 15 Creatinine 0.98 Estim Creat Clear Calc 55 Estimated GFR > 60 Glucose 86 Cancelled Calcium 8.8 Magnesium 1.8 1.8 Total Bilirubin AST ALT Alkaline Phosphatase Lactate Dehydrogenase 255 H Troponin I NT-Pro-B Natriuret Pep Total Protein 7.0 Albumin 3.7 Triglycerides 67 72 Cholesterol 115 Cancelled LDL Cholesterol Direct 48 HDL Direct 48 Amylase 47 TSH (Reflex) 1.230 Quality If No VTE Prophylaxis Answer both mechanical and pharmacologic: Reason no pharmacologic proph: medical contraindication (thoracentesis ordered for a.m.) The patient has been admitted under observation status. Hospitalist [facility] Advance Care Plan I have confirmed that the patient's Advanced Care Plan is present, code status is documented, or surrogate decision maker is listed in patient medical record.: Yes Medication Reconciliation I have utilized all available resources to obtain, update and review the patients current medications (includes all prescriptions, OTC, herbals, cannabis, and nutritional supplements).: Yes
[2024-05-10] MEDS: FUROSEMIDE INJ 40 MG/4 ML VIAL IV PUSH ×2 (10:10→20:59)
--- NOTE | 2024-05-10 11:09 | P.CONCA_ITS ---
Assessment and Plan Assessment and plan (1) CHF (congestive heart failure): Code(s): I50.9 - Heart failure, unspecified Status: Acute (2) Tobacco dependence: Code(s): F17.200 - Nicotine dependence, unspecified, uncomplicated Status: Acute (3) HTN (hypertension): Code(s): I10 - Essential (primary) hypertension Status: Acute Plan 74-year-old man who is a experiencing symptoms of exertional shortness of breath and positional dyspnea shortly after Garcia inhibitor and thiazide was discontinued because of concern regarding volume depletion about 6 weeks ago. Given his history of known vascular disease, dyslipidemia and smoking as well as the appearance of his electrocardiogram it would seem that the high probability is this gentleman has ischemic LV dysfunction with previous anterior infarction. Echocardiogram has appropriately tested to evaluate this. He is receiving intravenous furosemide. I am going to empirically start him on Entresto at this time and await his echocardiographic findings. Will treat his CHF medically at this point and further procedures/ischemia evaluation will appropriately be deferred to his instrumentation tech who has been managing him for the last 10 years. Once again it would be of significant benefit if was hospitalized at a facility where his physician is more readily available. Andre Johnson MD [facility] History of Present Illness History of Present Illness Consult date/time: 05/10/24 11:09 Reason For Visit: New onset CHF, elevated troponin Narrative: This is a 74-year-old man I am seeing at the request of the hospitalist who was admitted yesterday at the request of his primary care physician, Dr. Hickman because of concern about congestive heart failure. The patient is unknown to me prior to this consultation. He indicates that he is not known to have any cardiac problems to the best of his knowledge. He has a history of significant peripheral vascular disease including bilateral carotid endarterectomies and lower extremity percutaneous stent procedures. He has a history of ongoing smoking hypertension and dyslipidemia in addition to this. He states that recently he was found to be somewhat dehydrated and his antihypertensive medication which was lisinopril with hydrochlorothiazide was withdrawn. Shortly after that he began to feel more short of breath with modest activity. He denies any chest pain he also has been having orthopnea and PND for about the last 2 weeks. He says that he saw his primary care physician on who had some lab work done and a chest x-ray done and called him on Sunday and told him to come to the hospital emergency room to be admitted. The patient tells me that he is established patient of [facility], Dr. Shepherd for the last 10 years. He has a very poor historian regarding the reason for his cardiology follow-up he states that there were some concern about the rhythm of his heart when he was having carotid endarterectomy performed but he can not recall any other cardiac concerns he says that he sees his instrumentation tech every 6 months and is due to see him in the near future. The patient's 12 lead electrocardiogram on the chart shows sinus rhythm and evidence of previous anterior infarction. Previous EKGs in this patient's record are unchanged. The patient again has no knowledge of her recollection of being told that he had an infarction. He is seated at the side of his bed visiting with his son was with him today and offers no other history or complaints. It does not appear that there was any importance given to contacting the patient's established instrumentation tech before telling him to come to the hospital. Review of Systems 2 Constitutional: Constitutional: Reports no additional constitutional complaints Eyes: Eyes: Reports no additional eye complaints ENT: Reports system reviewed and no additional complaints, except as documented Cardiovascular: Cardiovascular: Reports no additional cardiovascular complaints Respiratory: Respiratory: Reports dyspnea on exertion Gastrointestinal: Gastrointestinal: Reports no additional gastrointestinal complaints Musculoskeletal: Musculoskeletal: Reports back pain Integumentary/Breasts: Skin/Breast: Reports system reviewed and no additional complaints, except as docu Neurologic: Reports system reviewed and no additional complaints, except as documented Psychiatric: Psychiatric: Reports no additional psychiatric complaints Endocrine: Endocrine: Reports no additional endocrine complaints Hematologic/Lymphatic: Hematologic/Lymphatic: Reports no additional hematologic/lymphatic complaints Allergic/Immunologic: Allergic/Immunologic: Reports no additional allergic/immunologic complaints [facility] Past Medical History Medical History (Updated 05/10/24 @ 04:33 by Sita Stuart PA-C) Carotid artery stenosis status post bilateral carotid endarterectomy Peripheral arterial disease status post bilateral lower extremity stent Cerebrovascular accident Hypertension Tobacco dependence Hyperlipidemia Surgical History Surgical History (Updated 05/10/24 @ 04:30 by Sita Stuart PA-C) History of lumbar fusion History of intravascular stent placement bilateral lower extremity stent History of bilateral carotid endarterectomy History of arthroscopy of both knees History of adenoidectomy History of cataract extraction History of colonoscopy with polypectomy Family History Family History Father Acute myocardial infarction CHF (congestive heart failure) Mother Acute myocardial infarction Social History Social History (Updated 05/10/24 @ 04:30 by Sita Stuart PA-C) Social History: Surrogate medical decision maker: Destiney Ovalles, spouse. Code status: Full code. Smoking packs per day: 0.5 Smoking cigarettes per day: 10.0 Years smoked: 45 Smoking pack-years: 22.50 Smoking status: Current every day smoker Tobacco type: cigarettes Alcohol intake: current Drinks per week: 2 Substance use: never Do You Feel Safe in your Home?: Yes Lack of Transportation: No Lack of Food: Never True Current Housing: I Have Housing Concerned About Future Housing: No Difficulty Paying Gas/Electric Bills: No Difficulty Paying for Meds: No Currently Unemployed: No Education: Master's Degree or Higher Difficulty w/ Childcare or Family Care: No Living arrangements: with family Additional living arrangements comments: Lives with spouse in [place]. 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 Spiritual care concerns: No Meds Home Medications and Allergies Home Medications ?Medication ?Instructions ?Recorded ?Confirmed ?Type aspirin 81 mg tablet 81 mg PO DAILY 10/18/20 05/09/24 History atorvastatin 40 mg tablet 40 mg PO DAILY 10/18/20 05/09/24 History clopidogrel 75 mg tablet 75 mg PO DAILY 10/18/20 05/09/24 History gemfibrozil 600 mg tablet 600 mg PO DAILY 10/18/20 05/09/24 History lisinopril 10 1 tablet PO DAILY 10/18/20 05/09/24 History mg-hydrochlorothiazide 12.5 mg tablet omega [id number] oil 1,000 mg 3 cap PO DAILY 03/13/24 05/09/24 History (120 mg-180 mg) capsule (Fish Oil) ergocalciferol (vitamin D2) 1,250 50,000 unit PO WEEKLY 05/09/24 05/09/24 History mcg (50,000 unit) capsule ferrous sulfate 325 mg (65 mg 325 mg PO DAILY 05/09/24 05/09/24 History iron) tablet (iron) Allergies Allergy/AdvReac Type Severity Reaction Status Date / Time No Known Allergies Allergy Verified 05/09/24 13:12 Vital Signs Vital Signs - 24 hr 05/09/24 13:17 05/09/24 17:47 05/09/24 20:35 Temperature 36.4 C L 37.4 C Pulse Rate 83 72 84 Respiratory Rate 15 15 Blood Pressure 152/82 H 166/85 H Pulse Oximetry 96 99 Oxygen Delivery Room Air 05/09/24 20:35 05/09/24 20:35 05/09/24 21:00 Temperature Pulse Rate 94 74 Respiratory Rate 9 L 25 H Blood Pressure 232/187 H 152/95 H Pulse Oximetry 99 98 97 Oxygen Delivery Room Air 05/09/24 21:16 05/09/24 21:31 05/09/24 21:45 Temperature Pulse Rate 78 76 75 Respiratory Rate 23 H 32 H 22 H Blood Pressure 139/83 124/97 H 120/60 Pulse Oximetry 94 94 97 Oxygen Delivery 05/09/24 22:16 05/09/24 23:47 05/10/24 00:00 Temperature 36.4 C Pulse Rate 83 70 75 Respiratory Rate 18 16 Blood Pressure 157/79 H 147/79 H Pulse Oximetry 100 100 Oxygen Delivery 05/10/24 02:00 05/10/24 04:00 05/10/24 04:46 Temperature 36.5 C Pulse Rate 77 64 67 Respiratory Rate 16 Blood Pressure 133/62 Pulse Oximetry 97 Oxygen Delivery 05/10/24 06:00 05/10/24 07:43 Temperature 36.5 C Pulse Rate 74 72 Respiratory Rate 14 Blood Pressure 127/79 Pulse Oximetry 97 Oxygen Delivery Exam 2 Const: General: comfortable and no acute distress Other: Thin small statured man in no distress visiting with his son HENMT: Mouth: Yes moist mucous membranes Eyes: Sclera: sclerae normal Neck: Neck: supple and no JVD Resp: Effort & Inspection: normal respiratory effort Other: The breath sounds are diminished in both lung albright he does have bibasilar rales Cardio: Rate: regular rate Rhythm: regular rhythm Other: Very soft systolic murmur at the left sternal border no diastolic murmur no gallop GI: GI Palp: Yes Soft to palpation Auscultation: normal bowel sounds Skin: General skin exam: normal color Neuro: Other: Alert and oriented x3 Extrem: Other: Adequate perfusion, no significant edema Results Labs and Meds 05/10/24 04:30 05/10/24 04:30 Lab results: Cardiac Enzymes 05/09/24 05/09/24 05/09/24 Range/Units 14:17 19:41 22:30 AST 27 (17-59) U/L Lactate Dehydrogenase (120-246) U/L Troponin I 0.113 H* 0.118 H* 0.114 H* (0.000-0.034) ng/mL 05/10/24 Range/Units 05:01 AST (17-59) U/L Lactate Dehydrogenase 255 H (120-246) U/L Troponin I (0.000-0.034) ng/mL Coagulation 05/09/24 05/10/24 Range/Units 14:17 05:01 PT 14.6 14.3 (11.1-14.7) Seconds APTT 30.9 (22.3-36.8) Seconds Lipids 05/10/24 05/10/24 Range/Units 04:30 05:01 Triglycerides 67 72 (<150) mg/dL Cholesterol 115 Cancelled (0-200) mg/dL CBC 05/09/24 05/10/24 Range/Units 14:17 04:30 WBC 9.7 8.4 (4.5-10.0) K/mm3 RBC 4.13 L 4.26 L (4.6-6.20) M/mm3 Hgb 12.0 L 12.2 L (14.0-18.0) g/dL Hct 39.9 L 40.7 L (42.0-52.0) % Plt Count 325 338 (150-375) k/mm3 Lymph # (Auto) 0.98 (0.9-3.2) K/mm3 [place] # (Auto) 0.8 H (0.1-0.6) K/mm3 Eos # (Auto) 0.3 (0-0.3) K/mm3 Baso # (Auto) 0.1 (0.0-0.1) K/mm3 Comprehensive Metabolic Panel 05/09/24 05/10/24 05/10/24 Range/Units 14:17 00:44 04:30 Sodium 144 143 (137-145) mmol/L Potassium 3.0 L 3.3 L 3.4 (3.4-5.0) mmol/L Chloride 109 H 105 (98-107) mmol/L Carbon Dioxide 24 27 (22-30) mmol/L BUN 16 15 (9-20) mg/dL Creatinine 1.01 0.98 (0.7-1.3) mg/dL Glucose 87 86 (65-110) mg/dL Calcium 8.9 8.8 (8.4-10.2) mg/dL AST 27 (17-59) U/L ALT 21 (6-50) U/L Alkaline Phosphatase 103 (38-126) U/L Total Protein 6.0 L (6.3-8.2) g/dL Albumin 3.7 (3.5-5.1) g/dL 05/10/24 Range/Units 05:01 Sodium (137-145) mmol/L Potassium (3.4-5.0) mmol/L Chloride (98-107) mmol/L Carbon Dioxide (22-30) mmol/L BUN (9-20) mg/dL Creatinine (0.7-1.3) mg/dL Glucose Cancelled (65-110) mg/dL Calcium (8.4-10.2) mg/dL AST (17-59) U/L ALT (6-50) U/L Alkaline Phosphatase (38-126) U/L Total Protein 7.0 (6.3-8.2) g/dL Albumin 3.7 (3.5-5.1) g/dL Intake and Output 05/09/24 05/10/24 05/10/24 23:59 07:59 15:59 Intake Total 340 Output Total 400 600 Balance -400 -260 Intake: Oral 340 Output: Urine 400 600 Other: # Unmeasured Voids 1 Number of Bowel Movements Today 1 Patient Weight 05/10/24 23:59 Weight 64.7 kg
[2024-05-10 12:11] LABS: pH Pleural Fluid > 7.500 (7.210-7.500)
[2024-05-10 12:50] LABS: Appearance Pleural Fluid Cloudy (Clear); Color Pleural Fluid Yellow (Colorless); Lymphocytes Pleural Fluid 51 %; Monocytes Pleural Fluid 11 %; Neutrophils Pleural Fluid 24 % (0-25); Nucleated Cell Pleural Fluid 884 /uL (0-1000); Pleural fluid source Pleural fluid; RBC Pleural Fluid < 2000 /uL (0-10000)
[2024-05-10 12:51] LABS: Other Cells Pleural Fluid 14 %
[2024-05-10] MEDS: SACUBITRIL/VALSARTAN 24-26 MG TABLET 1 TAB PO (20:59)
[2024-05-11] VITALS (18 sets, daily range): BP systolic 93–110; BP diastolic 55–70; PULSE 63–93; RESP 16–20; TEMP 36.4–36.8; O2SAT 95–99
--- NOTE | 2024-05-11 01:55 | PC.NURSE ---
Daylight Savings Time For Daylight Savings Time Ending in the Fall - Clocks are moved back. For Daylight Savings Time Beginning in the Spring - Clocks are moved ahead. For [facility], the time of change occurs at 0200 hrs. Time is taken from the linux server administrator. This entry on the patient's chart recognizes the change in time reflected during documentation. Example: 2 entries for vital signs may be charted for 0200 hrs.
[2024-05-11 07:47] LABS: Hematocrit 40.1 % (42.0-52.0); Hemoglobin 12.4 g/dL (14.0-18.0); Mean Corpuscular HGB Conc 30.9 g/dl (32-36); Mean Corpuscular Hemoglobin 29.5 pg (26-34); Mean Corpuscular Volume 95.2 fl (80-100); Mean Platelet Volume 10.7 fl (7.4-10.4); Platelet Count Result 310 k/mm3 (150-375); Red Blood Count 4.21 M/mm3 (4.6-6.20); Red Cell Distribution Width 15.4 % (11.5-14.5)
[2024-05-11 07:57] LABS: Alanine Aminotransferase 18 U/L (6-50); Albumin Level 3.5 g/dL (3.5-5.1); Alkaline Phosphatase 87 U/L (38-126); Anion Gap 9 mmol/L (4-12); Aspartate Amino Transferase 23 U/L (17-59); Bilirubin,Total 0.7 mg/dL (0.2-1.3); Blood Urea Nitrogen 15 mg/dL (9-20); Calcium 8.4 mg/dL (8.4-10.2); Carbon Dioxide 26 mmol/L (22-30); Chloride 103 mmol/L (98-107); Estimated CRCL calculation 61 ml/min; Estimated Glomerular Filt Rate > 60; Glucose 97 mg/dL (65-110); Magnesium 1.7 mg/dL (1.6-2.3); Phosphorus 3.7 mg/dL (2.5-4.5); Potassium 3.1 mmol/L (3.4-5.0); Sodium 138 mmol/L (137-145)
[2024-05-11] MEDS: SACUBITRIL/VALSARTAN 24-26 MG TABLET 1 TAB PO (09:13)
[2024-05-11] MEDS: FERROUS SULFATE 325 MG TABLET DR BY MOUTH (09:13)
[2024-05-11] MEDS: CLOPIDOGREL BISULFATE 75 MG TABLET PO (09:13)
[2024-05-11] MEDS: ERGOCALCIFEROL 50,000 UNITS CAPSULE 50000 UNITS PO (09:13)
[2024-05-11] MEDS: gemfibroziL 600 MG TABLET PO (09:13)
[2024-05-11] MEDS: ASPIRIN 81 MG CHEWABLE TABLET PO (09:13)
[2024-05-11] MEDS: ATORVASTATIN 40 MG TABLET PO (09:13)
[2024-05-11] MEDS: FUROSEMIDE INJ 40 MG/4 ML VIAL IV PUSH (09:14)
--- NOTE | 2024-05-11 09:46 | P.PNCA_ITS ---
Progress Note: A&P Assessment and Plan (1) CHF (congestive heart failure): Code(s): I50.9 - Heart failure, unspecified Status: Acute Plan 74-year-old man with extensive vascular disease admitted with shortness of breath some volume overload I expected as I mentioned in my consult note to find significant ischemic LV dysfunction but his echocardiogram looks much better than that. I am going to transition his medical regimen from Entresto to the combination of losartan and metoprolol. Will transition him to oral furosemide today. Hypokalemia noted today which is being addressed by the hospitalist following IV diuresis. Anticipate discharge in the next 24-48 hours if he is stable and anticipate follow-up will be with his established wood grainer to has been taking care of him for a long time Andre Johnson MD [facility] Subjective Date/time seen: Date of service: 05/11/24 09:46 Interval history: Follow-up in this 74-year-old man admitted with symptoms consistent with congestive heart failure. He feels better this morning denies any shortness of breath edema is resolving quickly. Spoke to patient at length about his echocardiographic findings from yesterday which I believe represents unexpectedly favorable news. I was anticipating seeing evidence of extensive previous anterior infarction but his left ventricular systolic function is actually preserved. We will be readjusting medications in light of this information Exam 2 Const: General: comfortable and no acute distress HENMT: Mouth: Yes moist mucous membranes Eyes: Sclera: sclerae normal Neck: Neck: supple and no JVD Resp: Effort & Inspection: normal respiratory effort Other: Breath sounds somewhat diminished but largely clear Cardio: Rate: regular rate Rhythm: regular rhythm GI: GI Palp: Yes Soft to palpation Auscultation: normal bowel sounds Skin: General skin exam: normal color Neuro: Other: Alert and oriented x3 Extrem: Other: Trivial pretibial edema Objective Data Vital Signs Vital Signs: Vital Signs - 24 hr 05/10/24 10:00 05/10/24 12:00 05/10/24 12:29 Temperature 36.4 C L Pulse Rate 70 69 72 Respiratory Rate 16 Blood Pressure 126/83 Pulse Oximetry 97 05/10/24 14:00 05/10/24 15:44 05/10/24 16:00 Temperature 36.4 C Pulse Rate 84 77 77 Respiratory Rate 20 Blood Pressure 104/62 Pulse Oximetry 100 05/10/24 16:25 05/10/24 19:45 05/10/24 20:00 Temperature 36.7 C Pulse Rate 69 76 77 Respiratory Rate 20 Blood Pressure 123/64 Pulse Oximetry 100 05/10/24 22:00 05/11/24 00:00 05/11/24 00:26 Temperature 36.6 C Pulse Rate 79 77 67 Respiratory Rate 20 Blood Pressure 99/70 L Pulse Oximetry 98 05/11/24 03:10 05/11/24 04:00 05/11/24 05:22 Temperature 36.4 C Pulse Rate 93 75 69 Respiratory Rate 20 Blood Pressure 105/56 L Pulse Oximetry 95 05/11/24 06:00 05/11/24 08:13 Temperature 36.6 C Pulse Rate 63 72 Respiratory Rate 16 Blood Pressure 100/55 L Pulse Oximetry 95 Intake/Output Intake/Output: Intake & Output 05/08/24 05/09/24 05/10/24 05/12/24 23:59 23:59 23:59 00:59 Intake Total 820 550 Output Total 400 2650 1400 Balance -400 -1830 -850 Meds/Results Medications: Active Medications Generic Name Dose Route Start Last Admin Trade Name Freq PRN Reason Stop Dose Admin Acetaminophen 650 mg 05/09/24 23:10 Acetaminophen 325 Mg Tablet PO Q6H PRN Mild Pain (1-3) or Fever Aspirin 81 mg 05/11/24 08:00 05/11/24 09:13 Aspirin 81 Mg Chewable Tablet PO 81 mg DAILY@0800 [facility] Administration Atorvastatin Calcium 40 mg 05/11/24 09:00 05/11/24 09:13 Atorvastatin 40 Mg Tablet PO 40 mg DAILY [place] Administration Clopidogrel Bisulfate 75 mg 05/11/24 09:00 05/11/24 09:13 Clopidogrel Bisulfate 75 Mg Tablet PO 75 mg DAILY [place] Administration Ergocalciferol 50,000 units 05/11/24 09:00 05/11/24 09:13 Ergocalciferol 50,000 Units Capsule PO 50,000 units WEEKLY [facility] Administration Ferrous Sulfate 325 mg 05/11/24 09:00 05/11/24 09:13 Ferrous Sulfate [address] BY MOUTH 325 mg DAILY [place] Administration Furosemide 20 mg 05/12/24 09:00 Furosemide 20 Mg Tablet PO DAILY [facility] Gemfibrozil 600 mg 05/11/24 09:00 05/11/24 09:13 Gemfibrozil 600 Mg Tablet PO 600 mg DAILY [place] Administration Magnesium Sulfate 2 gm in 50 mls @ 25 mls/hr 05/11/24 09:02 Magnesium Sulf 2 Gm/Water 50ml IVPB 05/11/24 11:01 ONCE ONE Potassium Chloride 100 mls @ 50 mls/hr 05/11/24 09:02 Kcl 20 Meq/Sw 100 Ml IVPB 05/11/24 11:01 ONCE ONE Losartan Potassium 25 mg 05/12/24 09:00 Losartan Potassium 25 Mg Tablet PO DAILY [place] Metoprolol Succinate 25 mg 05/12/24 09:00 Metoprolol Succinate Ext Rel 25 Mg Tabcr PO QAM [place] Perflutren Lipid Microsphere 0 ml 05/09/24 21:11 Perflutren Lipid Microspheres 1.5 Ml Vial Diluted To 10 Ml Total Volume IV PUSH 05/12/24 21:12 ONCE PRN adequate visualization Protocol Radiology Results: ITS Impressions Chest X-Ray 05/10/24 11:41 IMPRESSION: 1. Small pleural effusions with improvement on the right status post thoracentesis. Thoracentesis Ultrasound 05/10/24 11:55 IMPRESSION: 1. Successful ultrasound-guided thoracentesis yielding 1000 mL of yellow fluid. Venous Doppler Study 05/10/24 16:07 IMPRESSION: Negative bilateral lower extremity venous US. No deep vein thrombosis. Labs Labs: Laboratory Results - last 24 hr 05/10/24 05/10/24 05/11/24 11:28 11:36 07:36 WBC 9.0 RBC 4.21 L Hgb 12.4 L Hct 40.1 L MCV 95.2 MCH 29.5 MCHC 30.9 L RDW 15.4 H Plt Count 310 MPV 10.7 H Sodium 138 Potassium 3.1 L Chloride 103 Carbon Dioxide 26 Anion Gap 9 BUN 15 Creatinine 0.83 Estim Creat Clear Calc 61 Estimated GFR > 60 Glucose 97 Calcium 8.4 Phosphorus 3.7 Magnesium 1.7 Total Bilirubin 0.7 AST 23 ALT 18 Alkaline Phosphatase 87 Total Protein 6.0 L Albumin 3.5 Pleural Fluid Source Pleural fluid Pleural Color Yellow Pleural Appearance Cloudy Pleural pH > 7.500 H Pleural RBC < 2000 Pleural Nuc Cells 884 Pleural Neutrophils 24 Pleural Lymphocytes 51 Pleural Monocytes 11 Pleural Other Cells 14
--- NOTE | 2024-05-11 09:57 | PC.NURSE ---
8 beat run of Vtach reviewed with Dr. Johnson.
[2024-05-11] MEDS: KCL 20 MEQ/SW 100 ML 100 ML 50 MEQ IVPB (09:58)
[2024-05-11] MEDS: MAGNESIUM SULF 2 GM/WATER 50ML 2 GM/50 ML BAG IVPB (09:58)
--- NOTE | 2024-05-11 14:02 | P.PNIM_ITS ---
Progress Note: A&P Assessment and Plan (1) CHF (congestive heart failure): Code(s): I50.9 - Heart failure, unspecified Status: Acute Assessment and Plan: new onset CHF sp echo started on new heart failure Meds watch BMP and mg levels no diuretics if SBP less than 100 continue to diuresis replace potassium (2) Acute kidney injury: Code(s): N17.9 - Acute kidney failure, unspecified Status: Acute Assessment and Plan: - CT abdomen/pelvis: Kidneys: No suspicious mass, obstructing stone, or hydronephrosis. No other acute abdominopelvic process detected. - creat stable with some fluids pt not on fluids today (3) COVID: Code(s): U07.1 - COVID-19 Status: Acute Assessment and Plan: - recent covid in mar 2024 - watch resp status (4) HTN (hypertension): Code(s): I10 - Essential (primary) hypertension Status: Acute Assessment and Plan: - blood pressures remain stable, continue to monitor Plan lovenox for DVT prop Subjective Date/time seen: 05/11/24 14:02 Interval history: 74-year-old male history of tobacco use, history of CVA, carotid artery stenosis s/p: bilateral endarterectomy, peripheral artery disease as well as bilateral lower extremity stents, HTN, dyslipidemia, iron deficiency anemia and vitamin-D deficiency presented to the emergency room via private vehicle for evaluation of congestive heart failure. 05/10/2024: sp thoracentesis 05/11/2024: started on new heart failure medication Bp running low sp iv diuresis replace potassium hold diuretics if SBP is less than 100 pt having runs of [place] watch potassium and mg levels cardiology rounding echo complete and reviwed Review of Systems Review of Systems: SOB improving Exam Narrative: General: Chronically ill-appearing male Respiratory: Respirations are nonlabored. Lung sounds are diminished at the bases with crackles on the right. Cardiovascular: Regular rate and rhythm with frequent ectopy. Gastrointestinal: Abdomen is soft, nontender, and nondistended with positive bowel sounds. Skin: Warm and dry. Chronic skin changes of the lower legs bilaterally Extremities: No cyanosis or clubbing. Two to 3+ bilateral lower extremity edema softening towards the knees. No palpable knots or cords. Equivocal Homans sign bilaterally. Neurological: Alert. Cranial nerves 2-12 are grossly intact. No gross focal deficits to casual conversation. Psychiatric: Pleasant and cooperative with normal mood and affect. Judgment and insight intact. Objective Data Vital Signs Vital Signs: Vital Signs - 24 hr 05/10/24 14:00 05/10/24 15:44 05/10/24 16:00 Temperature 36.4 C Pulse Rate 84 77 77 Respiratory Rate 20 Blood Pressure 104/62 Pulse Oximetry 100 05/10/24 16:25 05/10/24 19:45 05/10/24 20:00 Temperature 36.7 C Pulse Rate 69 76 77 Respiratory Rate 20 Blood Pressure 123/64 Pulse Oximetry 100 05/10/24 22:00 05/11/24 00:00 05/11/24 00:26 Temperature 36.6 C Pulse Rate 79 77 67 Respiratory Rate 20 Blood Pressure 99/70 L Pulse Oximetry 98 05/11/24 03:10 05/11/24 04:00 05/11/24 05:22 Temperature 36.4 C Pulse Rate 93 75 69 Respiratory Rate 20 Blood Pressure 105/56 L Pulse Oximetry 95 05/11/24 06:00 05/11/24 08:13 05/11/24 12:09 Temperature 36.6 C 36.8 C Pulse Rate 63 72 78 Respiratory Rate 16 18 Blood Pressure 100/55 L 93/64 L Pulse Oximetry 95 95 Intake/Output Intake/Output: Intake & Output 05/08/24 05/09/24 05/10/24 05/12/24 23:59 23:59 23:59 00:59 Intake Total 820 550 Output Total 400 2650 1400 Balance -912 -1824 -637 Meds/Results Medications: Active Medications Generic Name Dose Route Start Last Admin Trade Name Freq PRN Reason Stop Dose Admin Acetaminophen 650 mg 05/09/24 23:10 Acetaminophen 325 Mg Tablet PO Q6H PRN Mild Pain (1-3) or Fever Aspirin 81 mg 05/11/24 08:00 05/11/24 09:13 Aspirin 81 Mg Chewable Tablet PO 81 mg DAILY@0800 [place] Administration Atorvastatin Calcium 40 mg 05/11/24 09:00 05/11/24 09:13 Atorvastatin 40 Mg Tablet PO 40 mg DAILY [place] Administration Clopidogrel Bisulfate 75 mg 05/11/24 09:00 05/11/24 09:13 Clopidogrel Bisulfate 75 Mg Tablet PO 75 mg DAILY [place] Administration Ergocalciferol 50,000 units 05/11/24 09:00 05/11/24 09:13 Ergocalciferol 50,000 Units Capsule PO 50,000 units WEEKLY [place] Administration Ferrous Sulfate 325 mg 05/11/24 09:00 05/11/24 09:13 Ferrous Sulfate [address] BY MOUTH 325 mg DAILY [place] Administration Furosemide 20 mg 05/12/24 09:00 Furosemide 20 Mg Tablet PO DAILY [place] Gemfibrozil 600 mg 05/11/24 09:00 05/11/24 09:13 Gemfibrozil 600 Mg Tablet PO 600 mg DAILY [place] Administration Losartan Potassium 25 mg 05/12/24 09:00 Losartan Potassium 25 Mg Tablet PO DAILY [place] Metoprolol Succinate 25 mg 05/12/24 09:00 Metoprolol Succinate Ext Rel 25 Mg Tabcr PO QAM [facility] Perflutren Lipid Microsphere 0 ml 05/09/24 21:11 Perflutren Lipid Microspheres 1.5 Ml Vial Diluted To 10 Ml Total Volume IV PUSH 05/12/24 21:12 ONCE PRN adequate visualization Protocol Radiology Results: ITS Impressions Chest X-Ray 05/10/24 11:41 IMPRESSION: 1. Small pleural effusions with improvement on the right status post thoracentesis. Thoracentesis Ultrasound 05/10/24 11:55 IMPRESSION: 1. Successful ultrasound-guided thoracentesis yielding 1000 mL of yellow fluid. Venous Doppler Study 05/10/24 16:07 IMPRESSION: Negative bilateral lower extremity venous US. No deep vein thrombosis. Labs Labs: Laboratory Results - last 24 hr 05/11/24 07:36 WBC 9.0 RBC 4.21 L Hgb 12.4 L Hct 40.1 L MCV 95.2 MCH 29.5 MCHC 30.9 L RDW 15.4 H Plt Count 310 MPV 10.7 H Sodium 138 Potassium 3.1 L Chloride 103 Carbon Dioxide 26 Anion Gap 9 BUN 15 Creatinine 0.83 Estim Creat Clear Calc 61 Estimated GFR > 60 Glucose 97 Calcium 8.4 Phosphorus 3.7 Magnesium 1.7 Total Bilirubin 0.7 AST 23 ALT 18 Alkaline Phosphatase 87 Total Protein 6.0 L Albumin 3.5
[2024-05-11 16:40] LABS: Anion Gap 10 mmol/L (4-12); Blood Urea Nitrogen 19 mg/dL (9-20); Calcium 8.8 mg/dL (8.4-10.2); Carbon Dioxide 29 mmol/L (22-30); Chloride 95 mmol/L (98-107); Estimated CRCL calculation 45 ml/min; Estimated Glomerular Filt Rate > 60; Glucose 105 mg/dL (65-110); Potassium 3.2 mmol/L (3.4-5.0); Sodium 134 mmol/L (137-145)
[2024-05-11] MEDS: POTASSIUM CHLORIDE 20 MEQ PACKET (FOR LIQUID) 40 MEQ PO (16:57)
[2024-05-12] VITALS (11 sets, daily range): BP systolic 94–109; BP diastolic 50–70; PULSE 66–94; RESP 18; TEMP 36.5–36.7; O2SAT 94–99; BMI 20.1
[2024-05-12 07:11] LABS: Magnesium 2.2 mg/dL (1.6-2.3)
[2024-05-12 09:22] LABS: Hematocrit 39.6 % (42.0-52.0); Hemoglobin 12.3 g/dL (14.0-18.0); Mean Corpuscular HGB Conc 31.1 g/dl (32-36); Mean Corpuscular Volume 93.4 fl (80-100); Platelet Count Result 341 k/mm3 (150-375); Red Blood Count 4.24 M/mm3 (4.6-6.20); White Blood Count 9.1 K/mm3 (4.5-10.0)
[2024-05-12 09:33] LABS: Anion Gap 7 mmol/L (4-12); Blood Urea Nitrogen 19 mg/dL (9-20); Calcium 8.5 mg/dL (8.4-10.2); Carbon Dioxide 29 mmol/L (22-30); Chloride 99 mmol/L (98-107); Estimated CRCL calculation 50 ml/min; Estimated Glomerular Filt Rate > 60; Glucose 102 mg/dL (65-110); Potassium 3.3 mmol/L (3.4-5.0); Sodium 135 mmol/L (137-145)
[2024-05-12] MEDS: ATORVASTATIN 40 MG TABLET PO (09:34)
[2024-05-12] MEDS: POTASSIUM CHLORIDE 20 MEQ PACKET (FOR LIQUID) 40 MEQ PO (09:34)
[2024-05-12] MEDS: CLOPIDOGREL BISULFATE 75 MG TABLET PO (09:35)
[2024-05-12] MEDS: ASPIRIN 81 MG CHEWABLE TABLET PO (09:35)
[2024-05-12] MEDS: FERROUS SULFATE 325 MG TABLET DR BY MOUTH (09:35)
[2024-05-12] MEDS: gemfibroziL 600 MG TABLET PO (09:35)
--- NOTE | 2024-05-12 10:02 | P.PNCA_ITS ---
Progress Note: A&P Assessment and Plan (1) CHF (congestive heart failure): Code(s): I50.9 - Heart failure, unspecified Status: Acute Assessment and Plan: Acute on chronic diastolic heart failure now resolved with IV diuresis. * He has already been shifted to p.o. furosemide * Continue losartan, metoprolol * K+ 3.2 this morning and is being replaced * CHF counseling * He has follow up scheduled with his established animal care technician on 05/20 * OK for discharge from a cardiac perspective (2) Hyperlipidemia: Code(s): E78.5 - Hyperlipidemia, unspecified Status: Acute Assessment and Plan: Continue statin (3) HTN (hypertension): Code(s): I10 - Essential (primary) hypertension Status: Acute Assessment and Plan: At goal (4) Tachycardia: Code(s): R00.0 - Tachycardia, unspecified Status: Acute Assessment and Plan: He did have one brief 6 beat run on NSVT seen on telemetry and one run of narrow complex, regular tachycardia consistent with SVT. He was asymptomatic with this. Continue beta wally. Subjective Date/time seen: 05/12/24 10:02 Interval history: Follow-up in this 74-year-old man admitted with symptoms consistent with congestive heart failure. He feels better this morning denies any shortness of breath edema is resolving quickly. Spoke to patient at length about his echocardiographic findings from yesterday which I believe represents unexpectedly favorable news. I was anticipating seeing evidence of extensive pr evious anterior infarction but his left ventricular systolic function is actually preserved. We will be readjusting medications in light of this information 05/12/2024: Denies any shortness of breath, orthopnea, chest pain. Swelling has resolved. Overall feeling very well and has no specific complaints. Review of Systems Constitutional: Constitutional: Reports no additional constitutional complaints Eyes: Eyes: Reports no additional eye complaints ENT: Reports system reviewed and no additional complaints, except as documented Cardiovascular: Cardiovascular: Reports no additional cardiovascular complaints and Reports dyspnea on exertion Respiratory: Respiratory: Reports dyspnea on exertion Gastrointestinal: Gastrointestinal: Reports no additional gastrointestinal complaints Musculoskeletal: Musculoskeletal: Reports back pain Integumentary/Breasts: Skin/Breast: Reports system reviewed and no additional complaints, except as docu Neurologic: Reports system reviewed and no additional complaints, except as documented Psychiatric: Psychiatric: Reports no additional psychiatric complaints Endocrine: Endocrine: Reports no additional endocrine complaints Hematologic/Lymphatic: Hematologic/Lymphatic: Reports no additional hematologic/lymphatic complaints Allergic/Immunologic: Allergic/Immunologic: Reports no additional allergic/immunologic complaints Exam Const: General: comfortable and no acute distress HENMT: Mouth: Yes moist mucous membranes Eyes: Sclera: sclerae normal Neck: Neck: supple and no JVD Resp: Effort & Inspection: normal respiratory effort Auscultation: clear to auscultation bilaterally Cardio: Rate: regular rate Rhythm: regular rhythm Other: Very soft systolic murmur at the left sternal border no diastolic murmur no gallop GI: Auscultation: normal bowel sounds Skin: General skin exam: normal color Neuro: Other: Alert and oriented x3 Extrem: Other: No edema Objective Data Vital Signs Vital Signs: Vital Signs - 24 hr 05/11/24 12:00 05/11/24 12:09 05/11/24 14:00 Temperature 36.8 C Pulse Rate 91 78 86 Respiratory Rate 18 Blood Pressure 93/64 L Pulse Oximetry 95 Oxygen Delivery 05/11/24 16:00 05/11/24 18:00 05/11/24 20:00 Temperature Pulse Rate 76 69 74 Respiratory Rate Blood Pressure Pulse Oximetry Oxygen Delivery 05/11/24 20:01 05/11/24 21:30 05/11/24 22:00 Temperature 36.6 C Pulse Rate 73 78 Respiratory Rate 16 Blood Pressure 100/62 Pulse Oximetry 99 Oxygen Delivery Room Air 05/11/24 23:52 05/12/24 00:00 05/12/24 00:15 Temperature 36.4 C Pulse Rate 74 70 Respiratory Rate 16 Blood Pressure 110/58 L Pulse Oximetry 99 Oxygen Delivery Room Air 05/12/24 02:00 05/12/24 03:24 05/12/24 04:00 Temperature 36.5 C Pulse Rate 75 73 77 Respiratory Rate 18 Blood Pressure 109/58 L Pulse Oximetry 94 Oxygen Delivery 05/12/24 04:15 05/12/24 06:00 05/12/24 06:16 Temperature Pulse Rate 69 66 Respiratory Rate Blood Pressure Pulse Oximetry Oxygen Delivery Room Air 05/12/24 08:03 Temperature 36.6 C Pulse Rate 74 Respiratory Rate 18 Blood Pressure 94/50 L Pulse Oximetry 98 Oxygen Delivery Intake/Output Intake/Output: Intake & Output 05/09/24 05/10/24 05/12/2410/25 23:59 23:59 00:59 23:59 Intake Total 820 1700 1030 Output Total 400 2650 1400 500 Balance -400 -1830 300 530 Meds/Results Medications: Active Medications Generic Name Dose Route Start Last Admin Trade Name Freq PRN Reason Stop Dose Admin Acetaminophen 650 mg 05/09/24 23:10 Acetaminophen 325 Mg Tablet PO Q6H PRN Mild Pain (1-3) or Fever Aspirin 81 mg 05/11/24 08:00 05/12/24 09:35 Aspirin 81 Mg Chewable Tablet PO 81 mg DAILY@0800 [place] Administration Atorvastatin Calcium 40 mg 05/11/24 09:00 05/12/24 09:34 Atorvastatin 40 Mg Tablet PO 40 mg DAILY [place] Administration Clopidogrel Bisulfate 75 mg 05/11/24 09:00 05/12/24 09:35 Clopidogrel Bisulfate 75 Mg Tablet PO 75 mg DAILY [place] Administration Ergocalciferol 50,000 units 05/11/24 09:00 05/11/24 09:13 Ergocalciferol 50,000 Units Capsule PO 50,000 units WEEKLY [place] Administration Ferrous Sulfate 325 mg 05/11/24 09:00 05/12/24 09:35 Ferrous Sulfate [address] BY MOUTH 325 mg DAILY [place] Administration Furosemide 20 mg 05/12/24 09:00 Furosemide 20 Mg Tablet PO DAILY [facility] Gemfibrozil 600 mg 05/11/24 09:00 05/12/24 09:35 Gemfibrozil 600 Mg Tablet PO 600 mg DAILY [place] Administration Losartan Potassium 25 mg 05/12/24 09:00 Losartan Potassium 25 Mg Tablet PO DAILY [facility] Metoprolol Succinate 25 mg 05/12/24 09:00 Metoprolol Succinate Ext Rel 25 Mg Tabcr PO QAM [facility] Perflutren Lipid Microsphere 0 ml 05/09/24 21:11 Perflutren Lipid Microspheres 1.5 Ml Vial Diluted To 10 Ml Total Volume IV PUSH 05/12/24 21:12 ONCE PRN adequate visualization Protocol Potassium Chloride 40 meq 05/11/24 17:00 05/12/24 09:34 Potassium Chloride 20 Meq Packet (For Liquid) PO 40 meq BID [place] Administration Radiology Results: ITS Impressions Chest X-Ray 05/10/24 11:41 IMPRESSION: 1. Small pleural effusions with improvement on the right status post thoracentesis. Thoracentesis Ultrasound 05/10/24 11:55 IMPRESSION: 1. Successful ultrasound-guided thoracentesis yielding 1000 mL of yellow fluid. Venous Doppler Study 05/10/24 16:07 IMPRESSION: Negative bilateral lower extremity venous US. No deep vein thrombosis. Labs Labs: Laboratory Results - last 24 hr 05/11/24 05/12/24 05/12/24 16:18 06:25 06:27 WBC 9.1 RBC 4.24 L Hgb 12.3 L Hct 39.6 L MCV 93.4 MCH 29.0 MCHC 31.1 L RDW 15.0 H Plt Count 341 MPV 11.0 H Sodium 134 L 135 L Potassium 3.2 L 3.3 L Chloride 95 L 99 Carbon Dioxide 29 29 Anion Gap 10 7 BUN 19 19 Creatinine 1.14 1.01 Estim Creat Clear Calc 45 50 Estimated GFR > 60 > 60 Glucose 105 102 Calcium 8.8 8.5 Magnesium 2.2
[2024-05-12 14:12] LABS: Anion Gap 8 mmol/L (4-12); Blood Urea Nitrogen 21 mg/dL (9-20); Calcium 8.7 mg/dL (8.4-10.2); Carbon Dioxide 28 mmol/L (22-30); Chloride 100 mmol/L (98-107); Estimated CRCL calculation 47 ml/min; Estimated Glomerular Filt Rate > 60; Glucose 127 mg/dL (65-110); Potassium 4.3 mmol/L (3.4-5.0); Sodium 136 mmol/L (137-145)
[2024-05-12 23:08] LABS: Magnesium 2.2 mg/dL (1.6-2.3)
[2024-05-16 08:39] LABS: Albumin Pleural Fluid 1.4 g/dL; Amylase, Pleural Fluid 13 U/L; Glucose Pleural Fluid 94 mg/dL; LDH Pleural Fluid 97 U/L; Total Protein Pleural Fluid <3.0 g/dL
== END 2024-05-12 15:00 | disposition home or self-care (01) | DRG 291 ==
LOC: ANHED 21:14 → ANHIMU 22:14
PROVIDERS: Emergency Medicine; Family Medicine; Physician Assistant; Admitting Provider Internal Medicine; Emergency Provider Emergency Medicine; PCP Internal Medicine; Visit Provider Family Medicine
DX: I11.0 Hypertensive heart disease with heart failure (principal); I50.33 Acute on chronic diastolic (congestive) heart failure; U07.1 COVID-19; J90 Pleural effusion, not elsewhere classified; N17.9 Acute kidney failure, unspecified; I47.10 Supraventricular tachycardia, unspecified; R79.89 Other specified abnormal findings of blood chemistry; E78.5 Hyperlipidemia, unspecified; I73.9 Peripheral vascular disease, unspecified; E87.6 Hypokalemia; E55.9 Vitamin D deficiency, unspecified; D50.9 Iron deficiency anemia, unspecified; F17.210 Nicotine dependence, cigarettes, uncomplicated; Z86.73 Personal history of transient ischemic attack (TIA), and cerebral infarction without residual deficits; Z95.820 Peripheral vascular angioplasty status with implants and grafts; Z98.1 Arthrodesis status
CPT/HCPCS: 32555; 36415; 71046; 80048; 80053; 80061; 82040; 82042; 82150; 82945; 83615; 83735; 83880; 83986; 84100; 84132; 84155; 84157; 84311; 84443; 84478; 84484; 85025; 85027; 85610; 85730; 87070; 87075; 87205; 88108; 88305; 88342; 89051; 93005; 93306; 93970; 96374; 96375; 99285; A9270; G0378; J1940; J3475; J3480